=== PATIENT | female | born 1980 ===

== ENCOUNTER → 2020-04-23 11:41 | Outpatient (BNVA) | payer OTHER, SELFPAY | PROVIDERS: PCP Nurse Practitioner Family; Visit Provider Surgery | DX: R92.8 Other abnormal and inconclusive findings on diagnostic imaging of breast (principal) | CPT/HCPCS: 99203 ==

== ENCOUNTER 2020-04-26 07:43 | Outpatient (REF) | payer OTHER, SELFPAY ==
--- NOTE | 2020-04-26 | MM_ITS ---
EXAMINATION: MM DIAGNOSTIC DIGITAL MAMMOGRAPHY, LEFT CLINICAL INFORMATION: 39-year-old with palpable fullness medial left breast and numerous calcifications inner and outer quadrant left breast. Family history breast cancer in sister age 42 (sister BRCA negative). Mother passed from lung cancer age 40s. Tyrer-Cuzick score 18%. Recent baseline diagnostic mammogram did not include magnification view of the calcifications. Patient scheduled for left biopsies today - separate reports. COMPARISON: Mammography: 04/16/2020, targeted left breast ultrasound 04/16/2020. TECHNIQUE: Digital mammography is performed in the following views: Magnification CC x2, magnification ML. FINDINGS: The breasts are heterogeneously dense, which may obscure small masses (ACR BI-RADS breast composition Category c). The additional magnification views confirm groups of heterogeneous calcifications outer quadrant anterior to mid depth. Calcifications are predominantly round but vary in size and attenuation. There may be some linear distribution mid depth. There are heterogeneous coarse calcifications again noted medial left breast mid depth. Results are discussed with the patient at time of visit. IMPRESSION: In addition to the suspicious heterogeneous coarse calcifications mid medial left breast, there are also groups of heterogeneous round calcifications anterior and mid outer left breast. ASSESSMENT: BI-RADS 4: Suspicious RECOMMENDATION: 1. Ultrasound-guided core biopsy medial left breast (scheduled for today - separate report). 2. Stereotactic sampling outer left breast calcifications (scheduled for today - separate report).
--- NOTE | 2020-04-26 | US_ITS ---
EXAMINATION: ULTRASOUND GUIDED CORE BIOPSY BREAST, LEFT CLINICAL INFORMATION: 39-year-old with palpable fullness at clinical exam medial left breast and numerous calcifications. Hypoechoic area within calcifications on targeted ultrasound. Family history breast cancer in sister, age 42 (sister BRCA negative). Mother passed from lung cancer age 40s. TC score 18%. Patient also has stereotactic biopsy left breast today, outer quadrant calcifications, separate report. COMPARISON: Mammography 04/16/2020, 04/26/2020, targeted left breast ultrasound 04/16/2020. FINDINGS: Proper informed consent is obtained from the patient after discussion of the procedure, potential risks and complications, and alternatives. Patient was given an opportunity for questions. The patient appeared to understand. The patient consented to the procedure and signed the consent form. GUIDANCE: Ultrasound-guided; aseptic technique. LESION: Hypoechoic lesion with calcifications medial left breast. APPROACH: Mediolateral. ANESTHESIA: 9 mL 1% lidocaine. DERMATOTOMY: Single skin nenita dermatotomy performed. NEEDLE: 14-gauge Achieve core biopsy device with 13.5-gauge co-axial guide needle. CORES: 6. CLIP: HydroMARK; shape: butterfly. The post procedure mammogram is performed following the subsequent left breast stereotactic biopsy, separate report. The patient tolerated the procedure well. No immediate complications. Home instructions reviewed with the patient. Final pathology results are pending left breast - 2 biopsies (ultrasound-guided and stereotactic). IMPRESSION: 1. Status post ultrasound-guided core biopsy left breast. Clip placed: HydroMARK; shape: butterfly. 2. Patient also has left stereotactic biopsy today, separate report. 3. Pathology pending. An addendum report will be issued.
--- NOTE | 2020-04-26 10:00 | MM_ITS ---
EXAMINATION: STEREOTACTIC TOMOSYNTHESIS-GUIDED VACUUM-ASSISTED BREAST BIOPSY, LEFT SPECIMEN RADIOGRAPH, LEFT POST PROCEDURE DIGITAL MAMMOGRAM, LEFT CLINICAL INFORMATION: 39-year-old with palpable fullness at clinical exam medial left breast and numerous calcifications inner left breast and scattered grouped calcifications outer left breast. Hypoechoic area within medial calcifications on targeted ultrasound. Family history breast cancer in sister, age 42 (sister BRCA negative). Mother passed from lung cancer age 40s. TC score 18%. Patient also has ultrasound-guided biopsy left breast today, separate report. COMPARISON: Mammography 04/16/2020, 04/26/2020. TECHNIQUE/PROCEDURE: Informed consent was obtained from the patient after discussion of the benefits, risks, and alternatives to biopsy today. Patient appeared to understand. Gave opportunity for questions. Patient signed consent form. Stereotactic breast biopsy is performed following the ultrasound-guided left breast biopsy described in separate report. BIOPSY TABLE: [employer] Biopsy System. LESION: Grouped calcifications outer left breast. LOCAL ANESTHESIA: 4 mL 1% lidocaine; 10 mL 1% lidocaine with epinephrine. DERMATOTOMY: Single skin nenita dermatotomy performed. NEEDLE: Tag'By Eviva 9-gauge vacuum assisted core biopsy device. APPROACH: caudal cranial. TARGETING: Combination of digital breast tomosynthesis and stereotactic digital mammography used for targeting. CORES: 7. CLIP: Tag'By SecurMark T-shaped marker. SPECIMEN RADIOGRAPH: Specimen radiograph is taken in separate room using digital mammography. The index calcifications are in the excised cores. There are over 30 calcifications in the cores. POST PROCEDURE UNILATERAL DIGITAL MAMMOGRAM: The post biopsy mammogram is performed in separate room using separate digital mammography equipment from the biopsy procedure. CC and ML views are obtained. The breasts are heterogeneously dense, which may obscure small masses (breast composition category: c). There is a HydroMark butterfly shaped clip marker adjacent to the coarse heterogeneous calcifications mid 9:00 left breast. There is a SecurMark T-shaped clip marker overlying the anterior 3:30 o'clock breast. The calcifications are markedly decreased consistent with the sampling. There is small parenchymal hematoma lateral side. Home instructions reviewed with the patient. Final pathology results are pending. IMPRESSION: 1. Digital tomosynthesis-guided core biopsy left breast with T shaped clip placement. 2. Ultrasound-guided left breast biopsy with Butterfly shaped clip placement, separate report. 3. Specimen radiograph taken and post procedure mammogram. There is satisfactory positioning of the biopsy clips. 4. Final pathology results pending- 2 sites. An addendum report will be issued.
== END 2020-04-26 07:44 | disposition home or self-care (01) ==
LOC: HO.MAMMO 07:43
PROVIDERS: PCP Nurse Practitioner Family; Visit Provider Surgery
DX: C50.912 Malignant neoplasm of unspecified site of left female breast (principal); Z17.0 Estrogen receptor positive status [ER+]; Z80.3 Family history of malignant neoplasm of breast
CPT/HCPCS: 19083; 19283; 77065; 88305; 88341; 88342; 88360

== ENCOUNTER → 2020-04-30 13:59 | Outpatient (BNVA) | payer OTHER, SELFPAY | PROVIDERS: PCP Nurse Practitioner Family; Referring Provider Nurse Practitioner Family; Visit Provider Surgery | DX: C50.912 Malignant neoplasm of unspecified site of left female breast (principal); Z98.890 Other specified postprocedural states | CPT/HCPCS: 99213 ==

== ENCOUNTER → 2020-05-27 14:08 | Outpatient (BNVA) | payer OTHER, MEDICAID, SELFPAY | PROVIDERS: PCP Nurse Practitioner Family; Referring Provider Nurse Practitioner Family; Visit Provider Urology | DX: N39.0 Urinary tract infection, site not specified (principal) | CPT/HCPCS: 81002; 99202 ==

== ENCOUNTER → 2020-10-27 09:20 | Outpatient (BNVA) | payer OTHER, SELFPAY | PROVIDERS: PCP Nurse Practitioner Family; Visit Provider Advanced Practice Midwife | DX: B97.7 Papillomavirus as the cause of diseases classified elsewhere (principal) | CPT/HCPCS: 99212 ==

== ENCOUNTER 2020-11-03 11:20 | Outpatient (REF) | payer OTHER, SELFPAY ==
--- NOTE | ~2020-11-03 | US_ITS ---
EXAMINATION: US PELVIS AND TRANSVAGINAL CLINICAL INFORMATION: Malignant neoplasm of unspecified site. COMPARISON: None. TECHNIQUE: Transabdominal and transvaginal ultrasound of the pelvis were performed. FINDINGS: The uterus is anteverted and anteflexed measuring 7.0 cm in length, 3.1 cm in AP and 4.5 cm in transverse dimension. The uterus is homogeneous in echotexture. The right ovary measures 2.0 x 1.2 x 1.5 cm and volume 1.9 mL. It appears unremarkable. The left ovary measures 2.2 x 1.2 x 1.6 cm and volume 2.2 mL. It appears unremarkable. There are several nabothian cysts seen in the cervix. There is no free fluid in the pelvis. US/US pelvic and transvaginal IMPRESSION: Several nabothian cysts in the cervix. The uterus is unremarkable. The ovaries are unremarkable.
== END 2020-11-03 11:21 | disposition home or self-care (01) ==
LOC: HO.US 11:20
PROVIDERS: PCP Nurse Practitioner Family; Visit Provider Advanced Practice Midwife
DX: B97.7 Papillomavirus as the cause of diseases classified elsewhere (principal); C50.912 Malignant neoplasm of unspecified site of left female breast
CPT/HCPCS: 76830; 76856

== ENCOUNTER 2020-11-18 11:10 | Outpatient (REF) | payer OTHER, SELFPAY | END 2020-11-18 11:11 | disposition home or self-care (01) | LOC: HO.LAB 11:10 | PROVIDERS: PCP Nurse Practitioner Family; Visit Provider Obstetrics & Gynecology | DX: N87.0 Mild cervical dysplasia (principal) | CPT/HCPCS: 57454; 81025; 88305 ==

== ENCOUNTER 2020-11-25 11:34 | Outpatient (REF) | payer OTHER, SELFPAY ==
[2020-11-25 12:04] LABS: COVID-19 Test Negative (Negative); IDNOW Serial# 55D5AD1C
== END 2020-11-25 11:35 | disposition home or self-care (01) ==
LOC: HO.LAB 11:34
PROVIDERS: Visit Provider Internal Medicine
DX: Z20.822 Contact with and (suspected) exposure to COVID-19 (principal)
CPT/HCPCS: 36415; 87635; C9803

== ENCOUNTER → 2020-12-02 14:04 | Outpatient (BNVA) | payer OTHER, SELFPAY | PROVIDERS: Visit Provider Obstetrics & Gynecology ==

== ENCOUNTER → 2021-01-25 14:07 | Outpatient (BNVA) | payer OTHER, SELFPAY | PROVIDERS: PCP Nurse Practitioner Family; Visit Provider Urology | DX: N39.0 Urinary tract infection, site not specified (principal) | CPT/HCPCS: 99212 ==

== ENCOUNTER 2021-04-27 09:28 | Outpatient (REF) | payer OTHER, SELFPAY ==
[2021-04-27 10:06] LABS: COVID-19 Test Positive (Negative)
== END 2021-04-27 09:29 | disposition home or self-care (01) ==
LOC: HO.LAB 09:28
PROVIDERS: PCP Nurse Practitioner Family; Visit Provider Internal Medicine
DX: Z20.822 Contact with and (suspected) exposure to COVID-19 (principal)
CPT/HCPCS: 36415; 87635; C9803

== ENCOUNTER 2021-05-04 08:02 | Outpatient (REF) | payer OTHER, SELFPAY | END 2021-05-04 08:03 | disposition home or self-care (01) | LOC: HO.LAB 08:02 | PROVIDERS: PCP Nurse Practitioner Family; Visit Provider Internal Medicine | DX: Z20.822 Contact with and (suspected) exposure to COVID-19 (principal) | CPT/HCPCS: C9803; U0003; U0005 ==

== ENCOUNTER 2021-07-21 09:50 | Outpatient (REF) | payer OTHER, SELFPAY ==
[2021-07-21 11:05] LABS: COVID-19 Test Negative (Negative); IDNOW Serial# 16C4AD1C
== END 2021-07-21 09:51 | disposition home or self-care (01) ==
LOC: HO.LAB 09:50
PROVIDERS: Visit Provider Internal Medicine
DX: Z20.822 Contact with and (suspected) exposure to COVID-19 (principal)
CPT/HCPCS: 36415; 87635; C9803

== ENCOUNTER 2021-09-03 09:04 | Outpatient (REF) | payer OTHER, SELFPAY ==
[2021-09-03 11:18] LABS: Appearance Urine CLEAR; Color Urine YELLOW; Glucose Urine UA NEG (NEG); Leukocyte Esterase Urine TRACE (NEG); Nitrite Urine NEG (NEG); PH 7.5 (5.0-8.0); Specific Gravity - Urine 1.015 (1.005-1.025); UACC Culture Trigger YES; Urine Blood NEG (NEG); Urine Ketones NEG (NEG); Urine Protein NEG (NEG-TRACE)
[2021-09-03 11:32] LABS: RBC Urine 0-2 /HPF (0); Squamous Epithelial Cell Urine 2+ /LPF
[2021-09-03 11:43] LABS: Alanine Aminotransferase 7 U/L (0-31); Alkaline Phosphatase 34 U/L (39-117); Anion Gap 10 (12-20); Aspartate Amino Transferase 17 U/L (5-31); Bilirubin Total 0.2 mg/dL (0.0-1.0); Blood Urea Nitrogen 11 mg/dL (9-16); Calcium 9.1 mg/dL (8.4-10.2); Carbon Dioxide 30 mmol/L (22-29); Chloride 102 mmol/L (96-108); Cholesterol 149 mg/dL; Estimated Glomerular Filt Rate > 60; Glucose Fasting 69 mg/dL (60-99); HDL Cholesterol 38 mg/dL; LDL Cholesterol Calculated 93 mg/dl; Potassium 4.1 mmol/L (3.3-5.1); Sodium 138 mmol/L (135-145); Total Protein 6.3 g/dL (6.5-8.0); Triglycerides 92 mg/dL
[2021-09-03 11:47] LABS: TSH reflex Free T4 0.48 uIU/mL (0.32-4.0)
== END 2021-09-03 09:05 | disposition home or self-care (01) ==
LOC: HO.HMGCLDS 09:04
PROVIDERS: Visit Provider Nurse Practitioner Family
DX: Z00.00 Encounter for general adult medical examination without abnormal findings (principal)
CPT/HCPCS: 36415; 80053; 80061; 81001; 84443; 87086

== ENCOUNTER 2021-12-08 13:52 | Outpatient (REF) | payer OTHER, SELFPAY ==
[2021-12-09 06:48] LABS: CT PCR NOT DETECTED (Not Detect.); NG PCR NOT DETECTED (Not Detect.)
[2021-12-09 12:52] LABS: BV Int Neg Control Negative (Negative); BV Int Pos Control Positive (Positive)
[2021-12-13 01:31] LABS: HPV mRNA E6/E7 rflx Not Detected (Not Detected)
== END 2021-12-08 13:53 | disposition home or self-care (01) ==
LOC: HO.LAB 13:52
PROVIDERS: PCP Nurse Practitioner Family; Visit Provider Obstetrics & Gynecology
DX: Z01.411 Encounter for gynecological examination (general) (routine) with abnormal findings (principal); Z11.51 Encounter for screening for human papillomavirus (HPV); N94.10 Unspecified dyspareunia
CPT/HCPCS: 87480; 87491; 87510; 87591; 87624; 87660; 88142

== ENCOUNTER 2021-12-13 08:54 | Outpatient (REF) | payer OTHER, SELFPAY ==
[2021-12-13 09:35] LABS: COVID-19 Test Negative (Negative)
== END 2021-12-13 08:55 | disposition home or self-care (01) ==
LOC: HO.LAB 08:54
PROVIDERS: Visit Provider Internal Medicine
DX: Z20.822 Contact with and (suspected) exposure to COVID-19 (principal)
CPT/HCPCS: 87635; C9803

== ENCOUNTER 2021-12-15 11:43 | Outpatient (REF) | payer OTHER, SELFPAY ==
[2021-12-16 05:41] LABS: HBsAGNum1 0.23 S/CO (0.00-0.99); HIV AB/AG Nonreactive (Nonreactive); HIV Num 1 0.06 S/CO (0.00-0.99); Hepatitis B Surface Antigen Negative (Negative); ~Hepatitis C Antibody Reactive (Nonreactive)
[2021-12-16 07:49] LABS: Syphilis Screen Nonreactive (Nonreactive)
== END 2021-12-15 11:44 | disposition home or self-care (01) ==
LOC: HO.LAB 11:43
PROVIDERS: PCP Nurse Practitioner Family; Visit Provider Obstetrics & Gynecology
DX: Z11.4 Encounter for screening for human immunodeficiency virus [HIV] (principal); N76.0 Acute vaginitis; B96.89 Other specified bacterial agents as the cause of diseases classified elsewhere
CPT/HCPCS: 36415; 86780; 86803; 87340; 87389

== ENCOUNTER 2022-01-12 15:07 | Outpatient (REF) | payer OTHER, SELFPAY ==
--- NOTE | ~2022-01-12 | US_ITS ---
EXAMINATION: US PELVIS CLINICAL INFORMATION: N94.10 - Unspecified dyspareunia. Age 41. COMPARISON: Ultrasound pelvis 11/03/2020 TECHNIQUE: Ultrasound of the pelvis is performed using both transabdominal and transvaginal transducers along with Doppler. Transvaginal imaging is performed due to inadequate visualization transabdominally. FINDINGS: Uterus: The uterus is anteverted and measures 7.2 x 2.7 x 4.2 cm. Uterine volume 43 mL. The double wall endometrial thickness is 8 mm. The uterus is smooth in contour. There is no myometrial cyst. No visible fibroid. There is nabothian cysts again seen in the cervix, largest approximately 0.7 cm. Adnexa: Both ovaries are visualized. There is no adnexal mass or pelvic ascites. Normal color flow to the adnexa.. Right ovary measures 2.0 x 1.5 x 1.5 cm. Volume 2.4 mL. Left ovary measures 1.9 x 0.9 x 1.3 cm. Volume 1.2 mL. US/US pelvic and transvaginal IMPRESSION: -No fibroid. Subcentimeter nabothian cysts in the cervix similar to prior exam 2020. -No adnexal mass or pelvic ascites.
== END 2022-01-12 15:08 | disposition home or self-care (01) ==
LOC: HO.US 15:07
PROVIDERS: Visit Provider Obstetrics & Gynecology
DX: N94.10 Unspecified dyspareunia (principal)
CPT/HCPCS: 76830; 76856

== ENCOUNTER 2022-01-26 15:54 | Outpatient (REF) | payer OTHER, SELFPAY ==
[2022-01-26 16:41] LABS: MANUAL DIFF FLAG NO
[2022-01-26 17:23] LABS: Basophils Percent Auto 0.6 % (0-2); Eosinophils Absolute Auto 0.1 X10*3/uL (0.0-0.4); Eosinophils Percent Auto 1.9 % (0-4); Hematocrit 35.7 % (37.0-47.0); Imm Gran Abs Auto 0.01 X10*3/uL (0.00-0.03); Imm Gran Pct Auto 0.2 % (0.0-0.4); Lymphocytes Absolute Auto 3.2 X10*3/uL (1.2-4.9); Lymphocytes Percent Auto 49.6 % (20-40); Mean Corpuscular HGB Conc 33.6 g/dl (31.0-35.0); Mean Corpuscular Hemoglobin 31.3 pg (27.0-33.0); Mean Platelet Volume 8.4 fL (9.4-12.3); Monocytes Absolute Auto 0.5 X10*3/uL (0.1-1.2); Monocytes Percent Auto 7.7 % (2-11); Neutrophils Absolute Auto 2.6 x10*3/uL (2.0-8.3); Platelet Count 229 X10*3/uL (160-400); Red Blood Count 3.84 X10*6/uL (4.20-5.50); Red Cell Distribution Width 12.7 % (11.0-16.0); White Blood Count 6.4 X10*3/uL (4.8-10.8)
[2022-01-26 17:54] LABS: Alanine Aminotransferase 12 U/L (0-31); Albumin Level 4.4 g/dL (3.5-5.0); Alkaline Phosphatase 33 U/L (39-117); Anion Gap 10 (12-20); Aspartate Amino Transferase 18 U/L (5-31); Bilirubin Total 0.4 mg/dL (0.0-1.0); Blood Urea Nitrogen 15 mg/dL (9-16); Calcium 9.5 mg/dL (8.4-10.2); Carbon Dioxide 33 mmol/L (22-29); Chloride 100 mmol/L (96-108); Cholesterol 178 mg/dL; Estimated Glomerular Filt Rate > 60; Glucose Fasting 76 mg/dL (60-99); HDL Cholesterol 45 mg/dL; LDL Cholesterol Calculated 117 mg/dl; Sodium 139 mmol/L (135-145); Total Protein 6.9 g/dL (6.5-8.0); Triglycerides 83 mg/dL
[2022-01-31 13:46] LABS: HCV Log PCR <1.18 NOT DETECTED Log IU/mL (NOT DETECTED); HepC Viral Load <15 NOT DETECTED IU/mL (NOT DETECTED)
== END 2022-01-26 15:55 | disposition home or self-care (01) ==
LOC: HO.LAB 15:54
PROVIDERS: Absent Provider Nurse Practitioner Family; PCP Nurse Practitioner Family; Visit Provider Obstetrics & Gynecology
DX: N94.10 Unspecified dyspareunia (principal); N87.0 Mild cervical dysplasia; R76.8 Other specified abnormal immunological findings in serum; F32.4 Major depressive disorder, single episode, in partial remission; F41.9 Anxiety disorder, unspecified
CPT/HCPCS: 36415; 80053; 80061; 84443; 85025; 87522; 99212

== ENCOUNTER → 2023-01-17 11:42 | Outpatient (BNVA) | payer OTHER, SELFPAY | PROVIDERS: PCP Nurse Practitioner Family; Visit Provider Obstetrics & Gynecology ==

== ENCOUNTER 2023-02-21 10:57 | Outpatient (REF) | payer OTHER, SELFPAY ==
--- NOTE | ~2023-02-21 | MM_ITS ---
EXAMINATION: MM SCREENING DIGITAL BREAST TOMOSYNTHESIS, RIGHT CLINICAL INFORMATION: Screening. Asymptomatic. The patient is status post mastectomy of the left breast. 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 COMPARISON: Mammography: This study is compared with prior exams dating back to 2019. TECHNIQUE: Digital breast tomosynthesis is performed in both the craniocaudal and mediolateral oblique views along with computer-aided detection (CAD). Synthesized 2D images are generated from the tomosynthesis. FINDINGS: There are scattered areas of fibroglandular density (ACR BI-RADS breast composition Category b). There are no significant masses, abnormal calcifications, or other abnormalities. MM/MM tomosynthesis screening RT IMPRESSION: No mammographic evidence of malignancy. ASSESSMENT: BI-RADS BI-RADS 1 - Negative RECOMMENDATION: Routine annual mammography screening. 1 year F/U This examination should not preclude the clinical evaluation of a suspicious palpable abnormality. This patient's information was entered into a reminder system with a target due date for their next mammogram.
== END 2023-02-21 10:58 | disposition home or self-care (01) ==
LOC: HO.MAMMO 10:57
PROVIDERS: PCP Nurse Practitioner Family; Visit Provider Obstetrics & Gynecology
DX: Z12.31 Encounter for screening mammogram for malignant neoplasm of breast (principal)
CPT/HCPCS: 77063; 77067

== ENCOUNTER → 2023-02-21 11:15 | Outpatient (BNV) | payer OTHER, SELFPAY | PROVIDERS: PCP Nurse Practitioner Family; Visit Provider Radiology Diagnostic Radiology | DX: Z12.31 Encounter for screening mammogram for malignant neoplasm of breast (principal) | CPT/HCPCS: 77063; 77067 ==

== ENCOUNTER → 2023-03-15 10:19 | Outpatient (REF) | payer OTHER, SELFPAY ==
--- NOTE | 2023-03-15 10:22 | CA_ITS ---
Transthoracic Echocardiogram Patient (Last, First, Middle): Yana Rodriguez, Gender: Female Date of : 1980 Age: 42 Procedure Date: 03/15/2023 Procedure Type: Transthoracic Echocardiogram Location: OP Height: 165.1 cm Weight: 66.23 kg BSA: 1.73 m2 Heart Rate: bpm BP: 117 / 80 mmHg Complaint Operator: ALANA Referring MD: Karolyn BARBOUR Symptoms: Z01.818 EXAM PRIOR TO CHEMOTHERAPY Study Quality: Adequate ECG Rhythm: Sinus Conclusions: - The left ventricular systolic function is normal. The calculated ejection fraction is 59% by biplane method. - There is mild tricuspid valve regurgitation. Findings Left Ventricle Normal left ventricular cavity size. There is normal left ventricular wall thickness. The left ventricular systolic function is normal. The calculated ejection fraction is 59% by biplane method. There is no evidence of regional wall motion abnormalities. Diastolic function is normal for age. LV peak GLS -17.5%, suspect slight underestimation. Right Ventricle Normal right ventricular cavity size and systolic function. Atria Both atria are normal in size. Aortic Valve There is a normal trileaflet aortic valve. There is no aortic valve stenosis. There is no aortic valve regurgitation. Mitral Valve The mitral valve appears normal. There is trace mitral valve regurgitation. There is no mitral valve stenosis. Pulmonic Valve The pulmonic valve is likely normal. Tricuspid Valve Normal tricuspid valve structure. There is mild tricuspid valve regurgitation. There is no evidence of pulmonary hypertension. Great Vessels The asc aorta is normal in size. Venous The inferior vena cava is normal in size and collapses greater than 50% with inspiration. Pericardium/Pleural There is no evidence of pericardial effusion. Prior Study Comparison No prior study available for comparison. Measurements 2D Linear Measurements IVSd: 0.75 0.6-0.9/0.6-1.0 cm LVIDd: 4.87 3.9-5.3/4.2-5.9 cm LVIDd Index: 2.82 2.4-3.2/2.2-3.1 cm/m2 LVIDs: 3.15 2.0-3.6 cm LVPWd: 0.79 0.7-1.1 cm LA Diam: 3.30 2.7-3.8/3.0-4.0 cm LAIDs Index: 1.91 1.5-2.3 cm/m2 LV Mass: 153.53 67-162/88-224 g LV Mass Index: 88.75 43-95/49-115 g/m2 LVOT Diam: 1.90 3.0+(-)1.3 cm 2D Systolic Function EF 4C: 56.50 >55% EF 2C: 59.70 >55% EF BiP: 58.80 >55% Mitral Valve MV Pk E: 0.79 MV PK A: 0.55 MV Decel Time: 218.00 E/A: 1.40 E'Lateral: 14.00 E'Medial: 9.14 E/E' Med: 8.70 E/E' Lat: 5.70 PHT: 64.00 MVA PHT: 3.44 Decel [place]: 3.63 Aortic Valve AoV Pk Lang: 0.97 AoV Mn Lang: 0.72 AoV VTI: 0.23 AoV Pk Grad: 4.00 Aov Mn Grad: 2.00 GISELA Cont.VTI: 2.35 LVOT LVOT Pk Lang: 0.92 LVOT Mn Lang: 0.56 LVOT VTI: 0.19 LVOT Pk Grad: 3.00 LVOT Mn Grad: 1.00 LVOT Diam: 1.90 LVOT Area: 2.84 Diastolic Function MV Pk E: 0.79 MV Pk A: 0.55 E/A: 1.40 E'Medial: 9.14 E/E' Med: 8.70 E' Laterial: 14.00 E/E' Lat: 5.70 Right Ventricle TAPSE (mm): 18.80 TVS' Lang: 12.10 Tricuspid Valve TR Pk Lang: 2.21 TR Pk Grad: 20.00 RA Press: 3.00 RVSP: 23.00 Great Vessels Aorta Sinus of Valsalva: 3.07 2.0-3.[address] [place]: 2.41 1.7-3.4 cm Ao Asc: 2.70 2.1-3.4 cm Updated in Other Vendor System with Status of Final Rolan White MD electronically signed on 03/17/2023 9:56:51 AM with status of Final
== END ==
LOC: HO.CARD 10:19
PROVIDERS: PCP Nurse Practitioner Family; Visit Provider Nurse Practitioner Family
DX: Z01.818 Encounter for other preprocedural examination (principal)
CPT/HCPCS: 93306; 93356

== ENCOUNTER → 2023-03-15 10:22 | Outpatient (BNV) | payer OTHER, SELFPAY | PROVIDERS: PCP Nurse Practitioner Family; Visit Provider Internal Medicine | DX: I36.1 Nonrheumatic tricuspid (valve) insufficiency (principal) | CPT/HCPCS: 93306 ==

== ENCOUNTER 2023-08-20 13:27 | Outpatient (AMB) | payer OTHER, SELFPAY ==
[2023-08-20 13:36] VITALS: BP 120/78; PULSE 86; O2SAT 96; BMI 24.9
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
== END 2023-08-20 14:17 | disposition home or self-care (01) ==
PROVIDERS: PCP Nurse Practitioner Family; Visit Provider Nurse Practitioner Family
DX: Z00.00 Encounter for general adult medical examination without abnormal findings (principal); H61.23 Impacted cerumen, bilateral
CPT/HCPCS: 99396

== ENCOUNTER 2024-03-03 15:03 | Outpatient (AMB) | payer OTHER, SELFPAY ==
[2024-03-03 15:06] VITALS: BP 120/78; PULSE 81; O2SAT 98; BMI 22.5
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
== END 2024-03-03 15:56 | disposition home or self-care (01) ==
PROVIDERS: PCP Nurse Practitioner Family; Visit Provider Nurse Practitioner Family
DX: T74.21XA Adult sexual abuse, confirmed, initial encounter (principal)
CPT/HCPCS: 99213

== ENCOUNTER 2024-03-04 10:07 | Outpatient (REF) | payer OTHER, SELFPAY ==
[2024-03-04 13:21] LABS: MANUAL DIFF FLAG NO
[2024-03-04 13:27] LABS: Basophils Percent Auto 0.5 % (0-2); Eosinophils Absolute Auto 0.1 X10*3/uL (0.0-0.4); Eosinophils Percent Auto 1.8 % (0-4); Hematocrit 38.5 % (37.0-47.0); Hemoglobin 12.6 g/dl (12.0-16.0); Imm Gran Abs Auto 0.03 X10*3/uL (0.00-0.03); Imm Gran Pct Auto 0.4 % (0.0-0.4); Lymphocytes Absolute Auto 0.9 X10*3/uL (1.2-4.9); Lymphocytes Percent Auto 11.6 % (20-40); Mean Corpuscular HGB Conc 32.7 g/dl (31.0-35.0); Mean Corpuscular Hemoglobin 30.7 pg (27.0-33.0); Mean Corpuscular Volume 93.9 fL (80.0-98.0); Mean Platelet Volume 8.9 fL (9.4-12.3); Monocytes Absolute Auto 0.4 X10*3/uL (0.1-1.2); Monocytes Percent Auto 5.3 % (2-11); Neutrophils Absolute Auto 6.1 x10*3/uL (2.0-8.3); Neutrophils Percent Auto 80.4 % (45-73); Platelet Count 289 X10*3/uL (160-400); Red Cell Distribution Width 13.1 % (11.0-16.0); White Blood Count 7.6 X10*3/uL (4.8-10.8)
[2024-03-04 13:39] LABS: Appearance Urine Clear; Color Urine Yellow; Glucose Urine UA Negative (Negative); Leukocyte Esterase Urine Negative (Negative); Nitrite Urine Negative (Negative); Specific Gravity - Urine 1.015 (1.005-1.025); UMIC TRIGGER UACC YES; Urine Blood Negative (Negative); Urine Ketones Negative (Negative); Urine Protein 30 (1+) mg/dL (Neg-Trace)
[2024-03-04 13:52] LABS: Bacteria Urine None Seen (None Seen); Hyaline Casts Urine 0-2 /LPF (0-2); RBC Urine 0-2 /HPF (0-2); Squamous Epithelial Cell Urine 0-2 /HPF (0-2); WBC Urine 0-5 /HPF (0-5)
[2024-03-04 14:00] LABS: Alanine Aminotransferase 15 U/L (0-31); Albumin Level 4.1 g/dL (3.5-5.0); Alkaline Phosphatase 54 U/L (39-117); Anion Gap 11 (12-20); Aspartate Amino Transferase 21 U/L (5-31); Bilirubin Total 0.2 mg/dL (0.0-1.0); Blood Urea Nitrogen 8 mg/dL (9-16); Calcium 9.8 mg/dL (8.4-10.2); Carbon Dioxide 29 mmol/L (22-29); Chloride 104 mmol/L (96-108); Cholesterol 160 mg/dL (<200); Estimated Glomerular Filt Rate > 60; Glucose Fasting 105 mg/dL (60-99); Glucose Random 106 mg/dL (60-115); HCG Quantitative < 2 mIU/mL; HDL Cholesterol 39 mg/dL (>40); LDL Cholesterol Calculated 104 mg/dL (<100); Potassium 4.3 mmol/L (3.3-5.1); Sodium 140 mmol/L (135-145); TSH reflex Free T4 1.21 uIU/mL (0.32-4.0); Triglycerides 87 mg/dL (<150)
[2024-03-04 15:24] LABS: CT PCR NOT DETECTED (Not Detect.); NG PCR NOT DETECTED (Not Detect.)
[2024-03-05 08:17] LABS: Syphilis Screen Nonreactive (Nonreactive)
[2024-03-05 08:26] LABS: HBS Num1 110.79 mIU/mL (0-7.99); HBsAGNum1 0.31 S/CO (0.00-0.99); HIV AB/AG Nonreactive (Nonreactive); HIV Num 1 0.05 S/CO (0.00-0.99); Hepatitis B Surface Antigen Negative (Negative); ~HepC Num1 3.99 S/CO (0.00-0.79); ~Hepatitis A Antibody IgM Nonreactive (Nonreactive); ~Hepatitis B Surface Antibody REACTIVE (Nonreactive); ~Hepatitis C Antibody Reactive (Nonreactive)
[2024-03-05 09:16] LABS: HBc Num2 0.49 S/CO; HBc Num3 0.78 S/CO; Hepatitis B Core Antibody Nonreactive (Nonreactive)
== END 2024-03-04 10:08 | disposition home or self-care (01) ==
LOC: HO.HMGCLDS 10:07
PROVIDERS: PCP Nurse Practitioner Family; Visit Provider Nurse Practitioner Family
DX: T74.21XA Adult sexual abuse, confirmed, initial encounter (principal)
CPT/HCPCS: 80053; 80061; 81001; 84443; 84702; 85025; 86704; 86706; 86709; 86780; 86803; 87340; 87389; 87491; 87591

== ENCOUNTER 2024-04-29 12:49 | Outpatient (REF) | payer OTHER, SELFPAY ==
[2024-04-29 16:25] LABS: Appearance Urine Clear; Color Urine Yellow; Glucose Urine UA Negative (Negative); Leukocyte Esterase Urine Moderate (2+) (Negative); Nitrite Urine Negative (Negative); PH 7.5 (5.0-9.0); Specific Gravity - Urine 1.015 (1.005-1.025); UMIC TRIGGER UA YES; Urine Blood Trace (Negative); Urine Ketones Negative (Negative); Urine Protein 30 (1+) mg/dL (Neg-Trace)
[2024-04-29 16:32] LABS: Bacteria Urine None Seen (None Seen); Hyaline Casts Urine 0-2 /LPF (0-2); Squamous Epithelial Cell Urine 0-2 /HPF (0-2); WBC Urine >50 /HPF (0-5)
[2024-04-30 20:18] LABS: HCV Log PCR <1.18 NOT DETECTED Log IU/mL (NOT DETECTED); HepC Viral Load <15 NOT DETECTED IU/mL (NOT DETECTED)
== END 2024-04-29 12:50 | disposition home or self-care (01) ==
LOC: HO.HMGCLDS 12:49
PROVIDERS: PCP Nurse Practitioner Family; Visit Provider Nurse Practitioner Family
DX: R76.8 Other specified abnormal immunological findings in serum (principal); R30.0 Dysuria
CPT/HCPCS: 36415; 81001; 87086; 87088; 87186; 87522

== ENCOUNTER 2024-05-15 09:09 | Outpatient (AMB) | payer OTHER, SELFPAY ==
--- NOTE | 2024-05-15 09:18 | A.OFFVIS_ITS ---
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 No complaints. Last Pap/HPV was negative in 12/11 Last Mammogram was BI-RADS 1 in 03/14 [facility] Medical History Rheumatoid arthritis Invasive ductal carcinoma of left breast Migraines Hepatitis C antibody test positive Bronchitis GERD (gastroesophageal reflux disease) ADHD (attention deficit hyperactivity disorder) Surgical History H/O total mastectomy of left breast History of section History of tonsillectomy Family History Father No problems noted. Mother History of lung cancer History of Crohn's disease Maternal Grandmother History of hypertension Maternal Grandfather History of stroke History of hypertension Social History Housing: House Patient Tobacco Use Status: Former Tobacco user Years Smoked: quit 3-4 years ago e-Cigarette/Vaping Use: Former Use Second Hand Smoke Exposure: Yes service: No Current occupational status: employed Current occupation: [email or web address] Current occupational exposures/hazards: No Cognitive needs: No Hearing needs: No Vision needs: No Female Reproductive History Menstrual Age of Menarche: 12 Date of last pap smear: 12/09/21 Date of Mammogram: 02/21/23 Review of Systems Const All systems reviewed & are unremarkable except as noted in HPI and below Card Reports as per HPI Resp Reports as per HPI GI Reports as per HPI and Reports no additional complaints Reports as per HPI Physical Exam Vital Signs: Last Vital Signs BP 112/64 05/15/24 09:21 BMI result Body Mass Index 22.4 Const General: cooperative, healthy appearing and comfortable Chest Chest palpation & inspection: normal palpation of entire chest wall and other (Status post left mastectomy) Breast/axilla inspection: normal inspection of the breasts (Right breast within normal, left status mastectomy) and normal inspection of the axillae Breast/axilla palpation: normal palpation of the breasts (Right breast within normal, left status post mastectomy), normal palpation of the axillae and no axillary lymphadenopathy Resp Effort & Inspection: normal respiratory effort Auscultation: clear to auscultation bilaterally Percussion: percussion normal Cardio Palpation: normal PMI Rate: regular rate Rhythm: regular rhythm Heart sounds: no murmurs and no rubs Peripheral pulses: Peripheral pulses 2+ throughout GI Inspection: Yes normal to inspection Palpation (GI): Soft to palpation, nontender, no guarding, not rigid and No hepatosplenomegaly present Percussion: Yes normal to percussion Auscultation: normal bowel sounds Rectal Exam - Female: deferred General: Yes bladder normal to palpation External Female Exam: No lesion Speculum Exam - Vagina: normal appearance of the vagina, normal palpation, normal vaginal discharge and not erythematous Speculum Exam - Cervix: normal appearance of the cervix and normal palpation Bimanual exam- vagina & uterus: normal bimanual exam, normal palpation, uterine size normal, bladder normal to palpation, consistency normal and normal palpation Bimanual Exam- Adnexa, other: normal adnexae, no masses and no tenderness Assessment & Plan Assessment & Plan (1) Well woman exam: Comment: History of ADENIKE 1 in 2020 left breast cancer status post left mastectomy Code(s): Z01.419 - Encounter for gynecological examination (general) (routine) without abnormal findings Category: Medical Plan: Cotesting done. Mammogram ordered. Counseled the patient about the recommended dietary allowance of 1000 mg of Calcium & 600 IU of vitamin D. The patient was instructed to perform monthly self-breast exams and to schedule an annual exam in a year; All questions answered and the patient verbalized understanding. Instructed the patient to schedule annual exam in a year Orders: Orders MM tomosynthesis screening RT Today Z12.31 - Encounter for screening mammogram for malignant neoplasm of breast Coding Level of Care Code Est Pt Prev Care 40-64y(19996) Diagnoses Well woman exam Z01.419
[2024-05-15 09:21] VITALS: BP 112/64; BMI 22.4
== END 2024-05-15 09:33 | disposition home or self-care (01) ==
LOC: HO.HWS 09:09
PROVIDERS: PCP Nurse Practitioner Family; Visit Provider Obstetrics & Gynecology
DX: Z01.419 Encounter for gynecological examination (general) (routine) without abnormal findings (principal)
CPT/HCPCS: 99396

== ENCOUNTER 2024-05-15 09:09 | Outpatient (REF) | payer OTHER, SELFPAY ==
[2024-05-21 12:48] LABS: HPV mRNA E6/E7 Not Detected (Not Detected)
== END 2024-05-15 09:10 | disposition home or self-care (01) ==
LOC: HO.LNP 09:09
PROVIDERS: PCP Nurse Practitioner Family; Visit Provider Obstetrics & Gynecology
DX: Z01.419 Encounter for gynecological examination (general) (routine) without abnormal findings (principal)
CPT/HCPCS: 87624; 88175; 99396

== ENCOUNTER 2024-08-08 13:40 | Outpatient (REF) | payer OTHER, SELFPAY | END 2024-08-08 13:41 | disposition home or self-care (01) | LOC: HO.MAMMO 13:40 | PROVIDERS: PCP Nurse Practitioner Family; Visit Provider Obstetrics & Gynecology | DX: Z12.31 Encounter for screening mammogram for malignant neoplasm of breast (principal) | CPT/HCPCS: 77063; 77067 ==

== ENCOUNTER 2024-08-21 08:50 | Outpatient (AMB) | payer OTHER, SELFPAY ==
[2024-08-21 08:59] VITALS: BP 118/76; PULSE 73; TEMP 36.8; O2SAT 96; BMI 21.6
--- NOTE | 2024-08-21 08:59 | MHC.PC.OV ---
Vital Signs 08/21/24 08:59 Height 5 ft 5 in Weight 130 lb BMI 21.6 BP 118/76 Blood Pressure Location Rt brachial Position Sitting Pulse 73 Pulse Source Pulse Oximeter Temp 98.3 F Temp Source Oral Pulse Oximetry (%) 96 Intake Visit Reasons: PE - see comments Intake Note: pt is here for PE Training Administrator Required: No Accompanied by: Self / Same As Patient Allergies No Known Allergies [No Known Allergies*] Allergy (Verified 08/21/24 08:59) Tobacco use date assessed: 08/21/24 Dental Screening Dental Screen Date: 08/21/24 Did you have a dental visit in the last 12 months?: Yes Did you have a dental problem in the last 6 months where you did not have access to dental care?: No Was dental information given to patient?: Patient has dentist HPI PE - see comments HPI Details History of Present Illness The patient is a 43-year-old female presenting for a physical examination and follow-up for her invasive ductal carcinoma of the left breast, 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 She reports doing very well overall. The patient is currently under the care of an oncology team. She had an echocardiogram performed last week. The patient reports she engages with a psychiatrist and a psychologist. Pt also sees a leather coverer for her RA. Health Maintenance - Follow-up with oncology team. - Regular psychiatric care. -follow up with rheum Social History Review of Systems - General: Denies fevers, chills. - Gastrointestinal: Denies blood in stool, constipation, diarrhea. - Cardiovascular: Denies chest pain. - Respiratory: Denies shortness of breath. - Psychiatric: Denies suicidal ideation, homicidal ideation. Physical Exam General: Cooperative, healthy appearing, comfortable, no acute distress and well developed Orientation: Patient oriented x3 Limitations: No limitations Head: Normal to inspection Ears: cerumen noted bilat, R>L. after ear lavage TMs easily seen Nose: Normal external nose present Face and sinus: Normal facial exam Eyes: Appearance normal, both eyes and all related structures Neck: Normal visual inspection and Yes full ROM Respiratory: Normal respiratory effort and able to speak in complete sentences. Clear to auscultation bilaterally Cardiovascular: Regular rate and rhythm. Normal S1 and S2 GI: Normal to inspection. Soft to palpation and nontender Skin: No rashes or lesions noted Neuro: Patient oriented x3 Extremities: Normal to inspection Results Plan - Continue follow-up care with the oncology team. - Maintain psychiatric support with her psychiatrist and psychologist. - Continue monitoring and routine screening as recommended by her oncology team. Patient was informed and verbally consented to the use of an ambient scribe for clinic note documentation during this visit. Discussion Notes In today's visit, I discussed with the patient her ongoing management plan for her diagnosed invasive ductal carcinoma of the left breast with metastasis. The importance of continued follow-up with her oncology team was emphasized. Additionally, her psychiatric care was acknowledged as an ongoing part of her treatment plan. She mentioned having undergone an echocardiogram last week, which is assumed to be part of her routine monitoring through the oncology hematology team. We did not discuss specific procedural details or any changes to her current treatment regimen during this visit. Pt also sees rheumatology for RA Patient Instructions - Continue attending appointments with your oncology team. - Maintain appointments with your psychiatrist and psychologist. - Monitor for any new symptoms and report them promptly. [facility] Medical History (Updated 08/21/24 @ 10:05 by CAYLA Aguila) Rheumatoid arthritis Invasive ductal carcinoma of left breast Migraines Hepatitis C antibody test positive Bronchitis GERD (gastroesophageal reflux disease) ADHD (attention deficit hyperactivity disorder) Surgical History Hx of biopsy H/O total mastectomy of left breast History of section History of tonsillectomy Family History Father No problems noted. Mother History of lung cancer History of Crohn's disease Maternal Grandmother History of hypertension Maternal Grandfather History of stroke History of hypertension Social History Housing: House Patient Tobacco Use Status: Former Tobacco user Years Smoked: quit 3-4 years ago e-Cigarette/Vaping Use: Former Use Second Hand Smoke Exposure: Yes service: No Current occupational status: employed Current occupation: [employer] Current occupational exposures/hazards: No Cognitive needs: No Hearing needs: No Vision needs: No Female Reproductive History Menstrual Age of Menarche: 12 Questionnaire PHQ-9 Over the last 2 weeks, how often have you been bothered by any of the following problems? 1. Little interest or pleasure in doing things: nearly every day 2. Feeling down, depressed, or hopeless: nearly every day 3. Trouble falling or staying asleep, or sleeping too much: nearly every day 4. Feeling tired or having little energy: nearly every day 5. Poor appetite or overeating: nearly every day 6. Feeling bad about yourself - or that you are a failure or have let yourself or your family down: nearly every day 7. Trouble concentrating on things, such as reading the newspaper or watching television: nearly every day 8. Moving or speaking so slowly that other people could have noticed. Or the opposite - being so fidgety or restless that you have been moving around a lot more than usual: not at all 9. Thoughts that you would be better off or of hurting yourself in some way: not at all Total score: 21 Depression Screening Interpretation: Positive (psychiatry and therpist. Denies any si or hi) Depression Screening Follow-up: Existing condition and In treatment Depression Screening Done: Yes 20400 - PHQ-9 Billing: Yes Source: Developed by Drs. Preston Valle, Ruth Ann Romero, Rod Arriaga and colleagues, with an educational ky from [employer]. Thrive Questionnaire Date Thrive assessed: 08/21/24 I am a: Patient What is your living situation today?: I have a steady place to live Within the past 12 months, did the food you bought not last and you didn't have the money to get more?: I choose not to answer this question Within the past 12 months, did you worry whether your food would run out before you got money to buy more?: I choose not to answer this question Do you have trouble paying for medicines?: I choose not to answer this question Do you have trouble getting transportation to medical appointments?: I choose not to answer this question Do you have trouble paying your heating and electricity bill?: I choose not to answer this question Do you have trouble taking care of your child, family member or friend?: No Do you have trouble with day-to-day activities such as bathing, preparing meals, shopping, managing finances, etc.?: Yes Are you currently unemployed and looking for a job?: No Are you interested in more education?: No Please select the resources that you would like help with: None Currently or been in a relationship where the following occur: I choose not to answer THRIVE Score: 0 AUDIT C Alcohol Use Questionnaire (AUDIT-C) 1. How often do you have a drink containing alcohol?: Monthly or less 2. How many drinks containing alcohol do you have on a typical day when you are drinking?: 1 or 2 3. How often do you have six or more drinks on one occasion?: Less than monthly Total Score: 2 Score Reviewed/Action Taken: Yes MIGUEL-7 AMB Questionnaire MIGUEL-7 Date MIGUEL - 7 assessed: 08/21/24 Feeling nervous, anxious, or on edge: 3 = Nearly every day Not being able to stop or control worryin = Nearly every day Worrying too much about different things: 3 = Nearly every day Trouble relaxin = Nearly every day Being so restless that it is hard to sit still: 1 = Several days Becoming easily annoyed or irritable: 3 = Nearly every day Feeling afraid as if something awful might happen: 3 = Nearly every day Total MIGUEL-7 score (0-4 normal; 5-9 mild; 10-14 moderate; 15-21 severe): 19 Source: Developed by Drs. Preston Valle, Ruth Ann Romero, Rod Arriaga and colleagues, with an educational ky from [employer]. MIGUEL-7 Assessment Billing MIGUEL-7 Assessment Tool: MIGUEL-7 Assessment 91158 Physical exam (Primary Care) Vital Signs: Last Vital Signs Temp 98.3 F 08/21/24 08:59 Pulse 73 08/21/24 08:59 BP 118/76 08/21/24 08:59 Pulse Ox 96 08/21/24 08:59 BMI result Body Mass Index 21.6 Tobacco/Smoking Status: Tobacco use Status Tobacco use date assessed 08/21/24 08/21/24 09:00 Patient Tobacco Use Status Former Tobacco user 08/21/24 09:00 e-Cigarette/Vaping Use Former Use 08/21/24 09:00 PHQ-9: PHQ-9 Score PHQ-9: Total score 21 08/21/24 09:00 Depression Screening Interpretation: Positive (psychiatry and therpist. Denies any si or hi) Depression Screening Follow-up: Existing condition and In treatment Thrive Assessment: Date of Thrive Assessment Date Thrive assessed 08/21/24 08/21/24 09:00 Currently or been in a relationship where the following occur: I choose not to answer Office Procedures Cerumen Removal From which ear canal was the cerumen removed: bilateral Removal: irrigation Notes: patient tolerated procedure well, no complications and ear canal clear 60469-[id number] Irrigation/Lavage Coding Level of Care Code Est Pt Prev Care 40-64y(72831) Diagnoses Physical exam Z00.00 Invasive ductal carcinoma of left breast C50.912 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 C77.0 Screening for HIV (human immunodeficiency virus) Z11.4 Rheumatoid arthritis M06.9 CPT Codes Office Procedure - CPT: 98002-Yqf Irrigation/Lavage ([id number]) Additional Codes MIGUEL-7 Assessment Billing - MIGUEL-7 Assessment Tool: MIGUEL-7 Assessment 84792 ([id number]) PHQ-9 - 07743 - PHQ-9 Billing: Yes ([id number]) Assessment & Plan Assessment & Plan (1) Physical exam: Code(s): Z00.00 - Encounter for general adult medical examination without abnormal findings Category: Medical (2) Invasive ductal carcinoma of left breast: Code(s): C50.912 - Malignant neoplasm of unspecified site of left female breast Category: Medical (3) 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 Orders: Orders HIV Ab/Ag Today Z11.4 - Encounter for screening for human immunodeficiency virus [HIV] Comprehensive [place]. Panel Fast Today Z00.00 - Encounter for general adult medical examination without abnormal findings TSH reflex Free T4 Today Z00.00 - Encounter for general adult medical examination without abnormal findings Complete Blood Count Auto Diff Today Z00.00 - Encounter for general adult medical examination without abnormal findings UA CC w/rflx Micro + Cult Today Z00.00 - Encounter for general adult medical examination without abnormal findings Lipid Panel Today Z00.00 - Encounter for general adult medical examination without abnormal findings
--- OUTSIDE RECORDS SUMMARY | 2024-08-21 11:41 | XMS_ITS | Data Portability ---
Author Organization [facility] [employer], , [facility], formerly [facility] Address [address] [place] [address] Assessment Encounter Date Assessment Date Assessment LastModified by Organization Details LastModified Time 03/25/2021 03/25/2021 Telemedicine Information: This telmed (audio + visual) appointment provided a MAT prescription. Time Start: 1006; Time End:4553 Provider Location: office; Patient Location: office Telemedicine Consent Given (verbal): Y Lab Results > Last UDS Result (Qual Screen): POS Buprenorphine and NO illicit drugs > Last Confirmatory Test Result (LCMS/Quant): N/A due to Negative UDS > Last Buprenorphine Confirmation Test Result: Bup: 735 ng/ml & Norbup: 245 ng/ml > Last LFT Result on 02/24/2021: WNL Since Last Visit THIS PT IS BEING TREATED FOR OUD WITH BUPRENORPHINE AND IS SEEN MONTHLY. CURRENT PRESCRIPTION IS SBX 16/4 MG/DAY. DOSE AMOUNT TAKEN TODAY: Full dose > Bio/psycho/social Update: YANA PRESENTS TODAY FOR MONTHLY MAT ASSMT REPLIES NO ILLICIT USE OR CRAVINGS PREV UDS NEGATIVE PMH: LEFT BREAST CA. THEN RECONSTRUCTION WHICH RESULTED IN INFECTION CONTS CHEMO OVER 7 MONTHS---1X Q 3 WEEKS NEW JOB; AT [employer]---STRESSFUL R/T JOB REQUIRMTS RUSHED TO MAKE MAT ASSMT R/T JOB SCHEDULING STARTED TO [facility]Y---UNABLE TO VOID. ALLOWED TO RETURN, SBX RX SENT R/T HX OF STABILITIY EMOTIONAL SPPT PROVIDED COUNSELING W/ S. WOLFF/PSYCH--ANX, INSOMNIA--RX CLONAZ, AMBIEN, GABAPENTIN PLAN: CONT MOTHNLY FOR CONT SUPPORT, F/U UDS Assessment The patient's current phase of treatment is Stable maintenance, OUD. > 1) Interpretation of Confirmatory (LCMS) Test Result: N/A due to NEG UDS > 2) Interpretation of Last Buprenorphine Confirmation Test Result: No concern > 3) Medication Dose: No report of cravings/withdrawa l symptoms. Pt will remain at current dose > 4) Markers of Recovery include: UDS NEGATIVE, COMPLIANCE WITH SCHED APPMTS AND COUNSELING. > 5) Counseling: Urged to enage in counseling The patient does meet diagnostic criteria for opioid dependence. The patient is responding to treatment with buprenorphine at OBOT level of care at this phase of treatment. The patient does continue to be a good candidate for this level of care. LFT will be repeated per our clinical protocol. Urine drug testing is ordered today with medical necessity as below. LAB ORDERS - Confirmatory testing for illicit substances or absence of prescribed buprenorphine. UNEXPECTED results on UDS may impact this patient's treatment plan. The following tests require confirmation via LCMS: Y POS for AMPHETAMINE Y POS for BENZODIAZEPINES Y POS for COCAINE Y POS for METHADONE Y POS for OPIATES (INCLUDING FENTANYL) Y POS for OXYCODONE ADDITIONAL LAB(S) REQUESTED - if indicated, please order the following: NONE Plan Patient's visit frequency should be monthly. Frequency of UDS and confirmatory test, if applicable, should be monthly. Treatment plan review or change includes continue current level of care. Referrals made today include none. Prescription monitoring program is reviewed. If reviewed, I have identified agents prescribed to the patient in addition to any issued by our program; the patient is counseled regarding any risk of combining sedating agents. [email or web address] Not available 03/27/2021 11:33:49 04/26/2021 04/26/2021 Telemedicine Information: This telmed (audio + visual) appointment provided a MAT prescription. Time Start: 1643; Time End:1657 Provider Location: office; Patient Location: office Telemedicine Consent Given (verbal): Y Lab Results > Last UDS Result (Qual Screen): POS Buprenorphine and NO illicit drugs > Last Confirmatory Test Result (LCMS/Quant): N/A due to Negative UDS > Last Buprenorphine Confirmation Test Result: Bup: 2000 ng/ml & Norbup: 1805 ng/ml > Last LFT Result on 02/24/2021: WNL Since Last Visit THIS PT IS BEING TREATED FOR OUD WITH BUPRENORPHINE AND IS SEEN MONTHLY. CURRENT PRESCRIPTION IS SBX 16/4 MG/DAY. DOSE AMOUNT TAKEN TODAY: Full dose > Bio/psycho/social Update: MONTHLY MAT VISIT YANA JARVIS TO PROVIDE ON-GOING NEGATIVE UDS'S ILLICIT USE DENIED PMH: LEFT BREAST CA WITH RECONSTRUCTION---I NFECTION RESOLVING CONTS CHEM 1X Q 3 WEEKS---LAST TX JUL 22, 2021 COMING FROM NEW JOB AT [employer]-----CHALLENG ING MORE THAN ANTICIPATED COUNSELING W/ JULIA. FORMER PT OF FOR ANX , INSOMNIA---RX CLONAZEPAM PLAN CONT MONTHLY EVIDEN BY STABLE ELIZABETH, CONT SUPPT Assessment The patient's current phase of treatment is Stable maintenance, OUD, recent lapse. > 1) Interpretation of Confirmatory (LCMS) Test Result: N/A due to NEG UDS > 2) Interpretation of Last Buprenorphine Confirmation Test Result: No concern > 3) Medication Dose: No report of cravings/withdrawa l symptoms. Pt will remain at current dose > 4) Markers of Recovery include: UDS NEGATIVE, COMPLIANCE WITH SCHED APPMTS AND COUNSELING. > 5) Counseling: Engaged in Counseling The patient does meet diagnostic criteria for opioid dependence. The patient is responding to treatment with buprenorphine at OBOT level of care at this phase of treatment. The patient does continue to be a good candidate for this level of care. LFT will be repeated per our clinical protocol. Urine drug testing is ordered today with medical necessity as below. LAB ORDERS - Confirmatory testing for illicit substances or absence of prescribed buprenorphine. UNEXPECTED results on UDS may impact this patient's treatment plan. The following tests require confirmation via LCMS: Y POS for AMPHETAMINE Y POS for BENZODIAZEPINES Y POS for COCAINE Y POS for METHADONE Y POS for OPIATES (INCLUDING FENTANYL) Y POS for OXYCODONE ADDITIONAL LAB(S) REQUESTED - if indicated, please order the following: NONE Plan Patient's visit frequency should be monthly. Frequency of UDS and confirmatory test, if applicable, should be monthly. Treatment plan review or change includes continue current level of care. Referrals made today include none. Prescription monitoring program is reviewed. If reviewed, I have identified agents prescribed to the patient in addition to any issued by our program; the patient is counseled regarding any risk of combining sedating agents. [email or web address] Not available 04/27/2021 08:36:41 05/24/2021 05/24/2021 Telemedicine Information: This telmed (audio + visual) appointment provided a MAT prescription. Time Start: 1644; Time End:1657 Provider Location: office; Patient Location: office Telemedicine Consent Given (verbal): Y Lab Results > Last UDS Result (Qual Screen): POS Buprenorphine and NO illicit drugs > Last Confirmatory Test Result (LCMS/Quant): N/A due to Negative UDS > Last Buprenorphine Confirmation Test Result: Bup: 808 ng/ml & Norbup: 624 ng/ml > Last LFT Result on 02/24/2021: WNL Since Last Visit THIS PT IS BEING TREATED FOR OUD WITH BUPRENORPHINE AND IS SEEN MONTHLY. CURRENT PRESCRIPTION IS SBX 16/4 MG/DAY. DOSE AMOUNT TAKEN TODAY: Full dose > Bio/psycho/social Update: MONTHLY MAT ASSHOLLY BEARD HAS MAINT STABLE SOBREITY DESPITE STRESSORS STRESSORS: 1) LEFT BREST CA W/ RECONSTRUC THAT LEAD TO INFECTION 2) MARITAL CONFLICKS EMOTIONAL SUPPT PROVIDED REPORTED TESTED POSTIVE FOR CV-19 QUARANTININES 1.5 WEEKS AGO NEW JOB AT [facility]. D/T FATIGUE AND LIFTINGS---TRAANSF ERRED TO NEW DEPT R/T LABELING AND PACKAGING CHEM COMPLETED Q 3 WEEKS [facility] (< ESTROGEN) LIVES W/ , 3 KIDS 14, 15, 20 COUNSELING W/ JULIA. ENCOURAGED TO F/U APPMT PLAN CONT MONTHLY R/T CONT STABLE RECOVERY AND SUPPT. Assessment The patient's current phase of treatment is Stable maintenance, OUD. > 1) Interpretation of Confirmatory (LCMS) Test Result: N/A due to NEG UDS > 2) Interpretation of Last Buprenorphine Confirmation Test Result: No concern > 3) Medication Dose: No report of cravings/withdrawa l symptoms. Pt will remain at current dose > 4) Markers of Recovery include: UDS NEGATIVE, COMPLIANCE WITH SCHED APPMTS AND COUNSELING. > 5) Counseling: Engaged in Counseling The patient does meet diagnostic criteria for opioid dependence. The patient is responding to treatment with buprenorphine at OBOT level of care at this phase of treatment. The patient does continue to be a good candidate for this level of care. LFT will be repeated per our clinical protocol. Urine drug testing is ordered today with medical necessity as below. LAB ORDERS - Confirmatory testing for illicit substances or absence of prescribed buprenorphine. UNEXPECTED results on UDS may impact this patient's treatment plan. The following tests require confirmation via LCMS: Y POS for AMPHETAMINE Y POS for BENZODIAZEPINES Y POS for COCAINE Y POS for METHADONE Y POS for OPIATES (INCLUDING FENTANYL) Y POS for OXYCODONE ADDITIONAL LAB(S) REQUESTED - if indicated, please order the following: NONE Plan Patient's visit frequency should be monthly. Frequency of UDS and confirmatory test, if applicable, should be monthly. Treatment plan review or change includes continue current level of care. Referrals made today include none. Prescription monitoring program is reviewed. If reviewed, I have identified agents prescribed to the patient in addition to any issued by our program; the patient is counseled regarding any risk of combining sedating agents. [email or web address] Not available 05/26/2021 07:57:28 06/21/2021 06/21/2021 Telemedicine Information: This telmed (audio + visual) appointment provided a MAT prescription. Time Start: 1631; Time End:1640 Provider Location: office; Patient Location: office Telemedicine Consent Given (verbal): Y Lab Results > Last UDS Result (Qual Screen): POS Buprenorphine and NO illicit drugs > Last Confirmatory Test Result (LCMS/Quant): N/A due to Negative UDS > Last Buprenorphine Confirmation Test Result: Bup: 2000 ng/ml & Norbup: 780 ng/ml > Last LFT Result on 02/24/2021: WNL Since Last Visit THIS PT IS BEING TREATED FOR OUD WITH BUPRENORPHINE AND IS SEEN MONTHLY. CURRENT PRESCRIPTION IS SBX 16/4 MG/DAY. DOSE AMOUNT TAKEN TODAY: Full dose > Bio/psycho/social Update: MONTHLY MAT ASSMT YANA CONT TO MAINT STABLE RECOVERY PROVIDING NEGATIVE UDS'S SHE IS FOCUSED DESPITE BREAST CANCER, HOME ISSUES W/ SPOUSE AND KIDS CHEMO--3 MORE TX'S LEFT LEFT BREAST RECONTRUCTION INFECTION IS HEALING WELL---POTENTIAL PLANS W/ ONC TO MOVE FRWD WITH BREAST RECONSTRUCTION NEW POSTION AT [employer] IS GOING WELL WITH LESS STRESS AND LESS LIFTING COUNSELING: FORMER PT OF SW/PSYCH--RX CLONAEPAM PLAN CONT MONTHLY FOR SOBRIETY SUPPT Assessment The patient's current phase of treatment is Stable maintenance, OUD. > 1) Interpretation of Confirmatory (LCMS) Test Result: N/A due to NEG UDS > 2) Interpretation of Last Buprenorphine Confirmation Test Result: No concern > 3) Medication Dose: No report of cravings/withdrawa l symptoms. Pt will remain at current dose > 4) Markers of Recovery include: UDS NEGATIVE, COMPLIANCE WITH SCHED APPMTS AND COUNSELING. > 5) Counseling: Urged to enage in counseling The patient does meet diagnostic criteria for opioid dependence. The patient is responding to treatment with buprenorphine at OBOT level of care at this phase of treatment. The patient does continue to be a good candidate for this level of care. LFT will be repeated per our clinical protocol. Urine drug testing is ordered today with medical necessity as below. LAB ORDERS - Confirmatory testing for illicit substances or absence of prescribed buprenorphine. UNEXPECTED results on UDS may impact this patient's treatment plan. The following tests require confirmation via LCMS: Y POS for AMPHETAMINE Y POS for BENZODIAZEPINES Y POS for COCAINE Y POS for METHADONE Y POS for OPIATES (INCLUDING FENTANYL) Y POS for OXYCODONE ADDITIONAL LAB(S) REQUESTED - if indicated, please order the following: NONE Plan Patient's visit frequency should be monthly. Frequency of UDS and confirmatory test, if applicable, should be monthly. Treatment plan review or change includes continue current level of care. Referrals made today include none. Prescription monitoring program is reviewed. If reviewed, I have identified agents prescribed to the patient in addition to any issued by our program; the patient is counseled regarding any risk of combining sedating agents. Not available 06/22/2021 08:16:08 07/19/2021 07/19/2021 Lab Results > Last UDS Result (Qual Screen): POS Buprenorphine and NO illicit drugs > Last Confirmatory Test Result (LCMS/Quant): Quantitative levels of: 7-aminoclonazepam, 463 (RX) > Last Buprenorphine Confirmation Test Result: Bup: 2000 ng/ml & Norbup: 746 ng/ml > Last LFT Result on 02/24/2021: WNL Since Last Visit THIS PT IS BEING TREATED FOR OUD WITH BUPRENORPHINE AND IS SEEN MONTHLY. CURRENT PRESCRIPTION IS BNX 8/2 mg BID. DOSE AMOUNT TAKEN TODAY: Full dose NUMBER OF FULL TABS/FILMS REMAININ > Bio/psycho/social Update: 40-yr-old female, seen today for a F/U visit. MAT for OUD. Stable in recovery. Pt denies any cravings or any illicit substance use since last visit. No adverse effects from BNX. Pt is interested in restarting Sublocade after cancer treatment. Pt has breast cancer. Currently in a chemotherapy treatment cycle, last chemo planned for 08/05/20. Also getting Lupron injections q3 months. Pt says that she is not in pain. Just does not feel well. Stable housing. Pt lives with her children and their father. Pt has a 21 yo, 15 yo (daughter) and 14 yo (son). Pt works FT. Plan: Continue BNX 16 mg TDD. Continue monthly assessments, monitor stability. Assessment The patient's current phase of treatment is Stable maintenance, OUD. > 1) Interpretation of Confirmatory (LCMS) Test Result: N/A due to NEG UDS > 2) Interpretation of Last Buprenorphine Confirmation Test Result: No concern > 3) Medication Dose: No report of cravings/withdrawa l symptoms. Pt will remain at current dose > 4) Markers of Recovery include: abstinence from illicit opiates, working, parenting > 5) Counseling: Engaged in Counseling The patient does meet diagnostic criteria for opioid dependence. The patient is responding to treatment with buprenorphine at OBOT level of care at this phase of treatment. The patient does continue to be a good candidate for this level of care. LFT will be repeated per our clinical protocol. Urine drug testing is ordered today with medical necessity as below. ADDITIONAL LAB(S) REQUESTED: - if indicated, please order the following: NONE Plan Patient's visit frequency should be monthly. Frequency of UDS and confirmatory test, if applicable, should be monthly. Treatment plan review or change includes continue current level of care. Referrals made today include none. Prescription monitoring program is reviewed. If reviewed, I have identified agents prescribed to the patient in addition to any issued by our program; the patient is counseled regarding any risk of combining sedating agents. Telemedicine Information: This telmed (audio + visual) appointment provided a MAT prescription. Time Start: 4:38 pm; Time End:4:48 pm Provider Location: home; Patient Location: home Telemedicine Consent Given (verbal): Y [email or web address] Not available 07/20/2021 12:23:44 Plan of Treatment Reminders Order Date Submit Date Provider Last Modified By Organization Details Last Modified Time Details Appointments None recorded. Lab drug screen, urine 2020 021 [email or web address] [employer] [facility], [address] [place], [id number], 18:06:38 drug screen, urine 2020 [facility], [address] [place], [address], 09:05:10 drug screen, urine 2020 021 [facility], [address] [place], [address], 09:27:04 drug screen, urine 2020 [facility], [address] [place], [id number], 12:33:43 drug screen, urine 2020 [facility], [address] [place], [id number], 10:12:15 Referral None recorded. Procedures None recorded. Surgeries None recorded. Imaging None recorded. Medication Orders Suboxone 8 mg-2 mg sublingual film 2020 [id number], [address], [place], [address], 16:36:03 Patient TargetsNo targets recorded. Patient Instructions Encounter Date Encounter Id Patient Instructions Last Modified By Organization Details Last Modified Time 03/25/2021 [id number] As part of your individualized treatment plan and program requirement, you will need to bring your correct prescription bottle and all used and unused medication and counseling verification to each appointment; > Agree to participate in counseling and bring counseling verification to each appointment; > Agree to present for random visits; > Agree to not falsify your urine specimens. [email or web address] Not available 03/25/2021 16:55:58 Education provid ed at today's visit included: Review of patient's individualized treatment plan; Review of program policies: RX, visit, counseling and DATA compliance; Review medication administration technique; Discussion proper care of medication/safety/ lock box; Counseling re: trigger avoidance, relapse prevention and the importance of developing a sober network; Counseling re safe sex and control; Review risk of BZD and BUP, as well as ETOH; Counseling re: Discovery & Drop out prevention in early recovery. Not available 03/25/2021 16:55:58 04/26/2021 [id number] As part of your individualized treatment plan and program requirement, you will need to bring your correct prescription bottle and all used and unused medication and counseling verification to each appointment; > Agree to participate in counseling and bring counseling verification to each appointment; > Agree to present for random visits; > Agree to not falsify your urine specimens. [email or web address] Not available 04/26/2021 16:42:30 Education provid ed at today's visit included: Review of patient's individualized treatment plan; Review of program policies: RX, visit, counseling and DATA compliance; Review medication administration technique; Discussion proper care of medication/safety/ lock box; Counseling re: trigger avoidance, relapse prevention and the importance of developing a sober network; Counseling re safe sex and control; Review risk of BZD and BUP, as well as ETOH; Counseling re: Discovery & Drop out prevention in early recovery. Not available 04/26/2021 16:42:30 05/24/2021 [id number] As part of your individualized treatment plan and program requirement, you will need to bring your correct prescription bottle and all used and unused medication and counseling verification to each appointment; > Agree to participate in counseling and bring counseling verification to each appointment; > Agree to present for random visits; > Agree to not falsify your urine specimens. Not available 05/24/2021 16:28:08 Education provid ed at today's visit included: Review of patient's individualized treatment plan; Review of program policies: RX, visit, counseling and DATA compliance; Review medication administration technique; Discussion proper care of medication/safety/ lock box; Counseling re: trigger avoidance, relapse prevention and the importance of developing a sober network; Counseling re safe sex and control; Review risk of BZD and BUP, as well as ETOH; Counseling re: Discovery & Drop out prevention in early recovery. Not available 05/24/2021 16:28:08 06/21/2021 [id number] As part of your individualized treatment plan and program requirement, you will need to bring your correct prescription bottle and all used and unused medication and counseling verification to each appointment; > Agree to participate in counseling and bring counseling verification to each appointment; > Agree to present for random visits; > Agree to not falsify your urine specimens. Not available 06/21/2021 16:36:29 Education provid ed at today's visit included: Review of patient's individualized treatment plan; Review of program policies: RX, visit, counseling and DATA compliance; Review medication administration technique; Discussion proper care of medication/safety/ lock box; Counseling re: trigger avoidance, relapse prevention and the importance of developing a sober network; Counseling re safe sex and control; Review risk of BZD and BUP, as well as ETOH; Counseling re: Discovery & Drop out prevention in early recovery. Not available 06/21/2021 16:36:29 07/19/2021 [id number] As part of your individualized treatment plan and program requirement, you will need to bring your correct prescription bottle and all used and unused medication and counseling verification to each appointment; > Agree to participate in counseling and bring counseling verification to each appointment; > Agree to present for random visits; > Agree to not falsify your urine specimens. Not available 07/19/2021 16:17:41 Education provid ed at today's visit included: Review of patient's individualized treatment plan; Review of program policies: RX, visit, counseling and DATA compliance; Review medication administration technique; Discussion proper care of medication/safety/ lock box; Counseling re: trigger avoidance, relapse prevention and the importance of developing a sober network; Counseling re safe sex and control; Review risk of BZD and BUP, as well as ETOH; Counseling re: Discovery & Drop out prevention in early recovery. Not available 07/19/2021 16:17:41 Reason for Referral None Reported. Results Created Date Observation Date Name Description Value Unit Range Abnormal Flag Note LastModifiedBy Organization Detail LastModifiedTime 02/25/20 21 02/24/2021 GGT GGT 9 U/L 3-50 normal Not Available [facility] [address], [place], [address], 02/24/2021 17:55:16 02/25/20 21 02/24/2021 AST AST 14 U/L 10-30 normal Not Available [employer] [facility] [address], [place], [address], 02/24/2021 17:55:17 02/25/20 21 02/24/2021 ALT ALT 6 U/L 6-29 normal Not Available [employer] [facility] [address], [place], [address], 02/24/2021 17:55:17 02/25/20 21 02/24/2021 BUPRE NORPH INE PT SCREE TREMAINE amphetamines NEGATI VE NG/mL 1,000 Kwadwo ortega by TMAARA MCMULLEN Not Available [address] [place], [id number], 02/25/2021 09:04:21 02/25/20 21 02/24/2021 BUPRE NORPH INE PT SCREE TREMAINE benzodiazapi jero NEGATI VE NG/mL 200 Not Available [facility] [place], [id number], 02/25/2021 09:04:21 02/25/20 21 02/24/2021 BUPRE NORPH INE PT SCREE TREMAINE buprenorphin e POSITI VE NG/mL 5 Not Available [address] [address] [place], [id number], 02/25/2021 09:04:21 02/25/20 21 02/24/2021 BUPRE NORPH INE PT SCREE TREMAINE cocaine metabolite NEGATI VE NG/mL 150 Not Available [facility] [address] [place], [address], 02/25/2021 09:04:21 02/25/20 21 02/24/2021 BUPRE NORPH INE PT SCREE TREMAINE opiates NEGATI VE NG/mL 300 Not Available [address] [address] [place], [address], 02/25/2021 09:04:21 02/25/20 21 02/24/2021 BUPRE NORPH INE PT SCREE TREMAINE oxycodone NEGATI VE NG/mL 300 Not Available [address] [address] [place], [id number], 02/25/2021 09:04:21 02/25/20 21 02/24/2021 BUPRE NORPH INE PT SCREE TREMAINE fentanyl NEGATI VE NG/mL 2 Not Available [address] [address] [place], [address], 02/25/2021 09:04:21 02/25/20 21 02/24/2021 BUPRE NORPH INE PT SCREE TREMAINE ethyl alcohol NEGATI VE mg/dL 10 Not Available [address] [address] [place], [id number], 02/25/2021 09:04:21 02/25/20 21 02/24/2021 BUPRE NORPH INE PT SCREE TREMAINE methadone metabolite NEGATI VE NG/mL 300 Not Available [address] [address] [place], [address], 02/25/2021 09:04:21 02/25/20 21 02/24/2021 BUPRE NORPH INE PT SCREE TREMAINE urine creatinine 85.2 mg/dL >20 Not Available [address] [address] [place], [address], 02/25/2021 09:04:21 02/25/20 21 02/24/2021 BUPRE NORPH INE PT SCREE TREMAINE urine pH 6.90 4.5-9. 0 Not Available [address] [address] [place], [address], 02/25/2021 09:04:21 02/25/20 21 02/24/2021 BUPRE NORPH INE PT SCREE TREMAINE specific gravity 1.007 1.003- 1.035 Not Available [address] [address] [place], [address], 02/25/2021 09:04:21 02/25/20 21 02/24/2021 PRESC RIBED DRUG CONFI RMATI ON [place] , BUPRE NORPH INE, QN, U buprenorphin e 735.7 NG/mL 20 Kwadwo ortega by TAMARA MCMULLEN Not Available [address] [place] [address] [place], [address], 02/28/2021 11:51:54 02/25/20 21 02/24/2021 PRESC RIBED DRUG CONFI RMATI ON [place] , BUPRE NORPH INE, QN, U norbuprenorp julia 245.2 NG/mL 50 Not Available [place] [address] [place], [address], 02/28/2021 11:51:54 02/25/20 21 02/24/2021 PRESC RIBED DRUG CONFI RMATI ON [place] , BUPRE NORPH INE, QN, U alpha-hydrox yalprazolam NEGATI VE NG/mL 25 Not Available [facility] [address] [place], [address], 02/28/2021 11:51:54 02/25/20 21 02/24/2021 PRESC RIBED DRUG CONFI RMATI ON [place] , BUPRE NORPH INE, QN, U 7-aminoclona zepam 192.8 NG/mL 40 high Not Available [address] [place] [address] [place], [address], 02/28/2021 11:51:54 02/25/20 21 02/24/2021 PRESC RIBED DRUG CONFI RMATI ON [place] , BUPRE NORPH INE, QN, U diazepam NEGATI VE NG/mL 50 Not Available [facility] [address] [place], [address], 02/28/2021 11:51:54 02/25/20 21 02/24/2021 PRESC RIBED DRUG CONFI RMATI ON [place] , BUPRE NORPH INE, QN, U lorazepam NEGATI VE NG/mL 50 Not Available [address] [place] [address] [place], [address], 02/28/2021 11:51:54 02/25/20 21 02/24/2021 PRESC RIBED DRUG CONFI RMATI ON [place] , BUPRE NORPH INE, QN, U nordiazepam NEGATI VE NG/mL 50 Not Available [address] [place] [address] [place], [address], 02/28/2021 11:51:54 02/25/20 21 02/24/2021 PRESC RIBED DRUG CONFI RMATI ON [place] , BUPRE NORPH INE, QN, U temazepam NEGATI VE NG/mL 50 Not Available [address] [place] [address] [place], [address], 02/28/2021 11:51:54 02/25/20 21 02/24/2021 PRESC RIBED DRUG CONFI RMATI ON [place] , BUPRE NORPH INE, QN, U legend ABBREV IATION S LOW - Detec mary but unqua ntifi able OLR - Outsi de of linea r range ATR - Addit ional Testi ng Requi red Not Available [address] [place] [address] [place], [address], 02/28/2021 11:51:54 02/25/20 21 02/24/2021 PRESC RIBED DRUG CONFI RMATI ON [place] , BUPRE NORPH INE, QN, U billing only ([id number]) BILLIN G ONLY Not Available [address] [place] [address] [place], [address], 02/28/2021 11:51:54 02/25/20 21 02/24/2021 pregn bib test, urine HCG negati ve Not Available [facility] [address], [address], 02/24/2021 09:05:28 03/25/20 21 03/25/2021 BUPRE NORPH INE PT SCREE TREMAINE amphetamines NEGATI VE NG/mL 1,000 Elect berry dietz d by JORDI CAMACHO Not Available [address] [place] [address] [place], [address], 03/30/2021 09:52:00 03/25/20 21 03/25/2021 BUPRE NORPH INE PT SCREE TREMAINE benzodiazapi jero NEGATI VE NG/mL 200 Not Available [address] [place] [address] [place], [address], 03/30/2021 09:52:00 03/25/20 21 03/25/2021 BUPRE NORPH INE PT SCREE TREMAINE buprenorphin e POSITI VE NG/mL 5 Not Available [address] [place] [address] [place], [address], 03/30/2021 09:52:00 03/25/20 21 03/25/2021 BUPRE NORPH INE PT SCREE TREMAINE cocaine metabolite NEGATI VE NG/mL 150 Not Available [address] [address] [place], [address], 03/30/2021 09:52:00 03/25/20 21 03/25/2021 BUPRE NORPH INE PT SCREE TREMAINE opiates NEGATI VE NG/mL 300 Not Available [address] [place] [address] [place], [address], 03/30/2021 09:52:00 03/25/20 21 03/25/2021 BUPRE NORPH INE PT SCREE TREMAINE oxycodone NEGATI VE NG/mL 300 Not Available [address] [place] [address] [place], [address], 03/30/2021 09:52:00 03/25/20 21 03/25/2021 BUPRE NORPH INE PT SCREE TREMAINE fentanyl NEGATI VE NG/mL 2 Not Available [facility] [place], [address], 03/30/2021 09:52:00 03/25/20 21 03/25/2021 BUPRE NORPH INE PT SCREE TREMAINE ethyl alcohol NEGATI VE mg/dL 10 Not Available [facility] [place], [address], 03/30/2021 09:52:00 03/25/20 21 03/25/2021 BUPRE NORPH INE PT SCREE TREMAINE methadone metabolite NEGATI VE NG/mL 300 Not Available [facility] [place], [address], 03/30/2021 09:52:00 03/25/20 21 03/25/2021 BUPRE NORPH INE PT SCREE TREMAINE urine creatinine 219.4 mg/dL >20 Not Available [place] [address] [place], [address], 03/30/2021 09:52:00 03/25/20 21 03/25/2021 BUPRE NORPH INE PT SCREE TREMAINE urine pH 6.10 4.5-9. 0 Not Available [address] [place] [address] [place], [address], 03/30/2021 09:52:00 03/25/2003/25/2021 BUPRE NORPH INE PT SCREE TREMAINE specific gravity 1.027 1.003- 1.035 Not Available [address] [place] [address] [place], [address], 03/30/2021 09:52:00 03/25/2003/25/2021 PRESC RIBED DRUG CONFI RMATI ON [place] , BUPRE NORPH INE, QN, U buprenorphin e OLR(>2 000) NG/mL 20 high Elect berry dietz d by JORDI CAMACHO Not Available [address] [place] [address] [place], [address], 03/31/2021 11:46:14 03/25/20 21 03/25/2021 PRESC RIBED DRUG CONFI RMATI ON [place] , BUPRE NORPH INE, QN, U norbuprenorp julia 1805.0 NG/mL 50 Not Available [place] [address] [place], [address], 03/31/2021 11:46:14 03/25/20 21 03/25/2021 PRESC RIBED DRUG CONFI RMATI ON [place] , BUPRE NORPH INE, QN, U alpha-hydrox yalprazolam NEGATI VE NG/mL 25 Not Available [facility] [place], [address], 03/31/2021 11:46:14 03/25/20 21 03/25/2021 PRESC RIBED DRUG CONFI RMATI ON [place] , BUPRE NORPH INE, QN, U 7-aminoclona zepam 319.9 NG/mL 40 high Not Available [address] [place] [address] [place], [address], 03/31/2021 11:46:14 03/25/20 21 03/25/2021 PRESC RIBED DRUG CONFI RMATI ON [place] , BUPRE NORPH INE, QN, U diazepam NEGATI VE NG/mL 50 Not Available [facility] [place], [address], 03/31/2021 11:46:14 03/25/20 21 03/25/2021 PRESC RIBED DRUG CONFI RMATI ON [place] , BUPRE NORPH INE, QN, U lorazepam NEGATI VE NG/mL 50 Not Available [address] [address] [place], [address], 03/31/2021 11:46:14 03/25/20 21 03/25/2021 PRESC RIBED DRUG CONFI RMATI ON [place] , BUPRE NORPH INE, QN, U nordiazepam NEGATI VE NG/mL 50 Not Available [facility] [place], [address], 03/31/2021 11:46:14 03/25/20 21 03/25/2021 PRESC RIBED DRUG CONFI RMATI ON [place] , BUPRE NORPH INE, QN, U temazepam NEGATI VE NG/mL 50 Not Available [facility] [place], [address], 03/31/2021 11:46:14 03/25/20 21 03/25/2021 PRESC RIBED DRUG CONFI RMATI ON [place] , BUPRE NORPH INE, QN, U legend ABBREV IATION S LOW - Detec mary but unqua ntifi able OLR - Outsi de of linea r range ATR - Addit ional Testi ng Requi red Not Available [address] [place] [address] [place], [address], 03/31/2021 11:46:14 03/25/20 21 03/25/2021 PRESC RIBED DRUG CONFI RMATI ON [place] , BUPRE NORPH INE, QN, U billing only ([id number]) BILLIN G ONLY Not Available [facility] [place], [address], 03/31/2021 11:46:14 04/26/20 21 04/26/2021 BUPRE NORPH INE PT SCREE TREMAINE amphetamines NEGATI VE NG/mL 1,000 Kwadwo ortega by JORDI CAMACHO Not Available [address] [place] [address] [place], [address], 04/28/2021 09:05:09 04/26/20 21 04/26/2021 BUPRE NORPH INE PT SCREE TREMAINE benzodiazapi jero NEGATI VE NG/mL 200 Not Available [address] [place] [address] [place], [address], 04/28/2021 09:05:09 04/26/20 21 04/26/2021 BUPRE NORPH INE PT SCREE TREMAINE buprenorphin e POSITI VE NG/mL 5 Not Available [address] [address] [place], [address], 04/28/2021 09:05:09 04/26/20 21 04/26/2021 BUPRE NORPH INE PT SCREE TREMAINE cocaine metabolite NEGATI VE NG/mL 150 Not Available [address] [address] [place], [address], 04/28/2021 09:05:09 04/26/20 21 04/26/2021 BUPRE NORPH INE PT SCREE TREMAINE opiates NEGATI VE NG/mL 300 Not Available [address] [place] [address] [place], [address], 04/28/2021 09:05:09 04/26/20 21 04/26/2021 BUPRE NORPH INE PT SCREE TREMAINE oxycodone NEGATI VE NG/mL 300 Not Available [address] [address] [place], [address], 04/28/2021 09:05:09 04/26/20 21 04/26/2021 BUPRE NORPH INE PT SCREE TREMAINE fentanyl NEGATI VE NG/mL 2 Not Available [address] [place] [address] [place], [address], 04/28/2021 09:05:09 04/26/20 21 04/26/2021 BUPRE NORPH INE PT SCREE TREMAINE ethyl alcohol NEGATI VE mg/dL 10 Not Available [address] [address] [place], [address], 04/28/2021 09:05:09 04/26/20 21 04/26/2021 BUPRE NORPH INE PT SCREE TREMAINE methadone metabolite NEGATI VE NG/mL 300 Not Available [address] [place] [address] [place], [address], 04/28/2021 09:05:09 04/26/20 21 04/26/2021 BUPRE NORPH INE PT SCREE TREMAINE urine creatinine 111.6 mg/dL >20 Not Available [place] [address] [place], [address], 04/28/2021 09:05:09 04/26/20 21 04/26/2021 BUPRE NORPH INE PT SCREE TREMAINE urine pH 6.00 4.5-9. 0 Not Available [address] [place] [address] [place], [address], 04/28/2021 09:05:09 04/26/20 21 04/26/2021 BUPRE NORPH INE PT SCREE TREMAINE specific gravity 1.013 1.003- 1.035 Not Available [address] [place] [address] [place], [address], 04/28/2021 09:05:09 04/26/20 21 04/26/2021 PRESC RIBED DRUG CONFI RMATI ON [place] , BUPRE NORPH INE, QN, U buprenorphin e 808.0 NG/mL 20 Elect berry ortega by JORDI CAMACHO Not Available [address] [place] [address] [place], [address], 05/03/2021 08:46:50 04/26/20 21 04/26/2021 PRESC RIBED DRUG CONFI RMATI ON [place] , BUPRE NORPH INE, QN, U norbuprenorp julia 624.2 NG/mL 50 Not Available [address] [place] [address] [place], [address], 05/03/2021 08:46:50 04/26/20 21 04/26/2021 PRESC RIBED DRUG CONFI RMATI ON [place] , BUPRE NORPH INE, QN, U alpha-hydrox yalprazolam NEGATI VE NG/mL 25 Not Available [address] [address] [place], [address], 05/03/2021 08:46:50 04/26/20 21 04/26/2021 PRESC RIBED DRUG CONFI RMATI ON [place] , BUPRE NORPH INE, QN, U 7-aminoclona zepam 616.7 NG/mL 40 high Not Available [address] [place] [address] [place], [address], 05/03/2021 08:46:50 04/26/20 21 04/26/2021 PRESC RIBED DRUG CONFI RMATI ON [place] , BUPRE NORPH INE, QN, U diazepam NEGATI VE NG/mL 50 Not Available [address] [address] [place], [address], 05/03/2021 08:46:50 04/26/20 21 04/26/2021 PRESC RIBED DRUG CONFI RMATI ON [place] , BUPRE NORPH INE, QN, U lorazepam NEGATI VE NG/mL 50 Not Available [address] [place] [address] [place], [address], 05/03/2021 08:46:50 04/26/20 21 04/26/2021 PRESC RIBED DRUG CONFI RMATI ON [place] , BUPRE NORPH INE, QN, U nordiazepam NEGATI VE NG/mL 50 Not Available [address] [place] [address] [place], [address], 05/03/2021 08:46:50 04/26/20 21 04/26/2021 PRESC RIBED DRUG CONFI RMATI ON [place] , BUPRE NORPH INE, QN, U temazepam NEGATI VE NG/mL 50 Not Available [address] [place] [address] [place], [address], 05/03/2021 08:46:50 04/26/20 21 04/26/2021 PRES RIBED DRUG CONFI RMATI ON [place] , BUPRE NORPH INE, QN, U legend ABBREV IATION S LOW - Detec mary but unqua ntifi able OLR - Outsi de of linea r range ATR - Addit ional Testi ng Requi red Not Available [address] [place] [address] [place], [address], 05/03/2021 08:46:50 04/26/20 21 04/26/2021 [facility] RIBED DRUG CONFI RMATI ON [place] , BUPRE NORPH INE, QN, U billing only ([id number]) BILLIN G ONLY Not Available [facility] [place], [address], 05/03/2021 08:46:50 05/24/20 21 05/24/2021 BUPRE NORPH INE PT SCREE TREMAINE amphetamines NEGATI VE NG/mL 1,000 Kwadwo dietz d by JORDI CAMACHO Not Available [address] [place] [address] [place], [address], 05/26/2021 09:27:04 05/24/20 21 05/24/2021 BUPRE NORPH INE PT SCREE TREMAINE benzodiazapi jero POSITI VE NG/mL 200 abnormal Not Available [facility] [place], [address], 05/26/2021 09:27:04 05/24/20 21 05/24/2021 BUPRE NORPH INE PT SCREE TREMAINE buprenorphin e POSITI VE NG/mL 5 Not Available [facility] [place], [address], 05/26/2021 09:27:04 05/24/20 21 05/24/2021 BUPRE NORPH INE PT SCREE TREMAINE cocaine metabolite NEGATI VE NG/mL 150 Not Available [facility] [place], [address], 05/26/2021 09:27:04 05/24/20 21 05/24/2021 BUPRE NORPH INE PT SCREE TREMAINE opiates NEGATI VE NG/mL 300 Not Available [address] [address] [place], [address], 05/26/2021 09:27:04 05/24/20 21 05/24/2021 BUPRE NORPH INE PT SCREE TREMAINE oxycodone NEGATI VE NG/mL 300 Not Available [address] [place] [address] [place], [address], 05/26/2021 09:27:04 05/24/20 21 05/24/2021 BUPRE NORPH INE PT SCREE TREMAINE fentanyl NEGATI VE NG/mL 2 Not Available [address] [address] [place], [address], 05/26/2021 09:27:04 05/24/20 21 05/24/2021 BUPRE NORPH INE PT SCREE TREMAINE ethyl alcohol NEGATI VE mg/dL 10 Not Available [address] [place] [address] [place], [address], 05/26/2021 09:27:04 05/24/20 21 05/24/2021 BUPRE NORPH INE PT SCREE TREMAINE methadone metabolite NEGATI VE NG/mL 300 Not Available [address] [place] [address] [place], [address], 05/26/2021 09:27:04 05/24/20 21 05/24/2021 BUPRE NORPH INE PT SCREE TREMAINE urine creatinine 214.9 mg/dL >20 Not Available [address] [place] [address] [place], [address], 05/26/2021 09:27:04 05/24/20 21 05/24/2021 BUPRE NORPH INE PT SCREE TREMAINE urine pH 7.60 4.5-9. 0 Not Available [address] [place] [address] [place], [address], 05/26/2021 09:27:04 05/24/20 21 05/24/2021 BUPRE NORPH INE PT DELROY PENALOZA specific gravity 1.020 1.003- 1.035 Not Available [address] [place] [address] [place], [address], 05/26/2021 09:27:04 05/24/20 21 05/24/2021 PRESC RIBED DRUG CONFI RMATI ON [place] , BUPRE NORPH INE, QN, U buprenorphin e OLR(>2 000) NG/mL 20 high Elect berry dietz d by JORDI CAMACHO Not Available [address] [place] [address] [place], [address], 05/30/2021 10:01:35 05/24/20 21 05/24/2021 PRESC RIBED DRUG CONFI RMATI ON [place] , BUPRE NORPH INE, QN, U norbuprenorp julia 780.7 NG/mL 50 Not Available [address] [place] [address] [place], [address], 05/30/2021 10:01:35 05/24/20 21 05/24/2021 PRESC RIBED DRUG CONFI RMATI ON [place] , BUPRE NORPH INE, QN, U alpha-hydrox yalprazolam NEGATI VE NG/mL 25 Not Available [address] [place] [address] [place], [address], 05/30/2021 10:01:35 05/24/20 21 05/24/2021 PRESC RIBED DRUG CONFI RMATI ON [place] , BUPRE NORPH INE, QN, U 7-aminoclona zepam 1366.9 NG/mL 40 high Not Available [address] [place] [address] [place], [address], 05/30/2021 10:01:35 05/24/20 21 05/24/2021 PRESC RIBED DRUG CONFI RMATI ON [place] , BUPRE NORPH INE, QN, U diazepam NEGATI VE NG/mL 50 Not Available [address] [place] [address] [place], [address], 05/30/2021 10:01:35 05/24/20 21 05/24/2021 PRESC RIBED DRUG CONFI RMATI ON [place] , BUPRE NORPH INE, QN, U lorazepam NEGATI VE NG/mL 50 Not Available [address] [place] [address] [place], [address], 05/30/2021 10:01:35 05/24/20 21 05/24/2021 PRESC RIBED DRUG CONFI RMATI ON [place] , BUPRE NORPH INE, QN, U nordiazepam NEGATI VE NG/mL 50 Not Available [address] [place] [address] [place], [address], 05/30/2021 10:01:35 05/24/20 21 05/24/2021 PRESC RIBED DRUG CONFI RMATI ON [place] , BUPRE NORPH INE, QN, U temazepam NEGATI VE NG/mL 50 Not Available [address] [place] [address] [place], [address], 05/30/2021 10:01:35 05/24/20 21 05/24/2021 PRESC RIBED DRUG CONFI RMATI ON [place] , BUPRE NORPH INE, QN, U legend ABBREV IATION S LOW - Detec mary but unqua ntifi able OLR - Outsi de of linea r range ATR - Addit ional Testi ng Requi red Not Available [address] [place] [address] [place], [address], 05/30/2021 10:01:35 05/24/20 21 05/24/2021 PRESC RIBED DRUG CONFI RMATI ON [place] , BUPRE NORPH INE, QN, U billing only ([id number]) [place] ONLY Not Available [facility] [place], [address], 05/30/2021 10:01:35 06/21/20 21 06/21/2021 BUPRE NORPH INE PT SCREE TREMAINE amphetamines Negati ve NG/mL 1,000 Elect berry dietz d by JORDI CAMACHO Not Available [address] [place] [address] [place], [address], 06/23/2021 12:33:43 06/21/20 21 06/21/2021 BUPRE NORPH INE PT SCREE TREMAINE benzodiazapi jero Negati ve NG/mL 200 Not Available [facility] [place], [address], 06/23/2021 12:33:43 06/21/20 21 06/21/2021 BUPRE NORPH INE PT SCREE TREMAINE buprenorphin e Positi ve NG/mL 5 Not Available [address] [address] [place], [address], 06/23/2021 12:33:43 06/21/20 21 06/21/2021 BUPRE NORPH INE PT SCREE TREMAINE cocaine metabolite Negati ve NG/mL 150 Not Available [address] [place] [address] [place], [address], 06/23/2021 12:33:43 06/21/20 21 06/21/2021 BUPRE NORPH INE PT SCREE TREMAINE opiates Negati ve NG/mL 300 Not Available [address] [place] [address] [place], [address], 06/23/2021 12:33:43 06/21/20 21 06/21/2021 BUPRE NORPH INE PT SCREE TREMAINE oxycodone Negati ve NG/mL 300 Not Available [address] [place] [address] [place], [address], 06/23/2021 12:33:43 06/21/20 21 06/21/2021 BUPRE NORPH INE PT SCREE TREMAINE fentanyl Negati ve NG/mL 2 Not Available [facility] [place], [address], 06/23/2021 12:33:43 06/21/20 21 06/21/2021 BUPRE NORPH INE PT SCREE RTEMAINE ethyl alcohol Negati ve mg/dL 10 Not Available [facility] [address] [place], [address], 06/23/2021 12:33:43 06/21/20 21 06/21/2021 BUPRE NORPH INE PT SCREE TREMAINE methadone metabolite Negati ve NG/mL 300 Not Available [facility] [place], [address], 06/23/2021 12:33:43 06/21/20 21 06/21/2021 BUPRE NORPH INE PT SCREE TREMAINE urine creatinine 264.6 mg/dL >20 Not Available [place] [address] [place], [address], 06/23/2021 12:33:43 06/21/20 21 06/21/2021 BUPRE NORPH INE PT SCREE TREMAINE urine pH 6.30 4.5-9. 0 Not Available [address] [place] [address] [place], [address], 06/23/2021 12:33:43 06/21/20 21 06/21/2021 BUPRE NORPH INE PT SCREE TREMAINE specific gravity 1.035 1.003- 1.035 Not Available [address] [place] [address] [place], [address], 06/23/2021 12:33:43 07/19/20 21 07/19/2021 BUPRE NORPH INE PT SCREE TREMAINE amphetamines Negati ve NG/mL 1,000 Kwadwo ortega by KEEGAN REID Not Available [address] [place] [address] [place], [address], 07/21/2021 10:12:15 07/19/20 21 07/19/2021 BUPRE NORPH INE PT SCREE TREMAINE benzodiazapi jero Negati ve NG/mL 200 Not Available [facility] [place], [address], 07/21/2021 10:12:15 07/19/20 21 07/19/2021 BUPRE NORPH INE PT SCREE TREMAINE buprenorphin e Positi ve NG/mL 5 Not Available [facility] [place], [address], 07/21/2021 10:12:15 07/19/20 21 07/19/2021 BUPRE NORPH INE PT SCREE TREMAINE cocaine metabolite Negati ve NG/mL 150 Not Available [facility] [place], [address], 07/21/2021 10:12:15 07/19/20 21 07/19/2021 BUPRE NORPH INE PT SCREE TREMAINE opiates Negati ve NG/mL 300 Not Available [facility] [place], [address], 07/21/2021 10:12:15 07/19/20 21 07/19/2021 BUPRE NORPH INE PT SCREE TREMAINE oxycodone Negati ve NG/mL 300 Not Available [facility] [place], [address], 07/21/2021 10:12:15 07/19/20 21 07/19/2021 BUPRE NORPH INE PT SCREE TREMAINE fentanyl Negati ve NG/mL 2 Not Available [facility] [place], [address], 07/21/2021 10:12:15 07/19/20 21 07/19/2021 BUPRE NORPH INE PT SCREE TREMAINE ethyl alcohol Negati ve mg/dL 10 Not Available [facility] [place], [address], 07/21/2021 10:12:15 07/19/20 21 07/19/2021 BUPRE NORPH INE PT SCREE TREMAINE methadone metabolite Negati ve NG/mL 300 Not Available [address] [place] [address] [place], [address], 07/21/2021 10:12:15 07/19/20 21 07/19/2021 BUPRE NORPH INE PT SCREE TREMAINE urine creatinine 240.2 mg/dL >20 Not Available [place] [address] [place], [address], 07/21/2021 10:12:15 07/19/20 21 07/19/2021 BUPRE NORPH INE PT SCREE TREMAINE urine pH 5.40 4.5-9. 0 Not Available [address] [place] [address] [place], [address], 07/21/2021 10:12:15 07/19/20 21 07/19/2021 BUPRE NORPH INE PT SCREE TREMAINE specific gravity 1.027 1.003- 1.035 Not Available [place] [address] Mary Mire[place], [address], 07/21/2021 10:12:15 Result Notes None recorded. Problems Name Problem SNOMED Code Status Onset Date Resolution Date Notes Provider Name and Address Organization Details Recorded Time Opioid dependence 23368981 Active 2019 France Rubio MD [address] [place], [place] [address]h[place], [address], [facility] [employer], 0 14:38:44 Viral hepatitis C 09808845 Active 2019 VIRAL LOAD NOT DETECTABLE France Rubio MD [address] [place], [place] [address]h[place], [address], [facility] [employer] 0 14:39:09 Anxiety 20269244 Active 2019 France Rubio MD [address] [place], [place] [address]h[place], [address], [place] [facility] 0 14:39:22 Malignant tumor of breast 337888633 Active 2019 LEFT JORDI CAMACHO, SALES SERVICE REPRESENTATIVE [address] [facility] [place], [address], [facility] [employer] [facility] 0 09:47:38 Excision of left breast Active 2020 JORDI CAMACHO, SALES SERVICE REPRESENTATIVE [address] [facility] [place], [address], [facility] 1 09:57:06 History of left mastectomy 091769777 Active 2020 JORDI CAMACHO, SALES SERVICE REPRESENTATIVE [address] [facility] [place], [address], [employer] [facility] 1 09:57:22 Operation on breast Active 2020 JORDI CAMACHO, ADALBERTO [address] [facility] [place], [address], [facility] 1 10:00:18 Drug withdrawal 746135668 Active 2020 JORDI CAMACHO, ADALBERTO [address] [facility] [place], [address], [facility] 1 10:00:47 Problem Notes None recorded. Procedures Surgical History Date Name Laterality Status Provider Name and Address Organization Details Recorded Time 07/19/2021 04986, G0480, G0481 completed [employer] 07/19/2021 16:17:41 06/21/2021 04442, G0480, G0481 completed [employer] 06/21/2021 16:36:29 05/24/2021 44218, G0480, G0481 completed [employer] 05/24/2021 16:28:08 04/26/2021 33393, G0480, G0481 completed Ivon Colon [facility] 04/26/2021 16:42:30 03/25/2021 98202, G0480, G0481 completed [employer] 03/25/2021 16:55:58 02/24/2021 91098, G0480, G0481 completed Delfina Terrazas [facility] 02/24/2021 09:00:56 01/28/2021 51838, G0480, G0481 completed Mariia Camacho [facility] 01/28/2021 13:14:10 12/31/2020 46260, G0480, G04[address] [facility] 12/31/2020 10:01:16 12/02/2020 37916, G0480, G04[address] [facility] 12/02/2020 09:33:21 11/02/2020 00322, G0480, G04[address] [facility] 11/02/2020 08:31:00 10/05/2020 34227, G0480, G04[address] [facility] 10/05/2020 08:53:15 09/07/2020 98824, G0480, G0481 completed [facility] 09/07/2020 14:06:25 08/10/2020 35280, G0480, G0481 completed Nelsy Shaffer [facility] 08/10/2020 09:14:07 07/13/2020 79981, G0480, G0481 completed Minerva [facility] 07/13/2020 09:04:08 05/26/2020 79253, G0480, G0481 completed Minerva Tab [facility] 05/26/2020 13:49:02 04/27/2020 51747, G0480, G0481 [facility] 04/27/2020 13:36:49 03/26/2020 56125, G0480, G0481 completed Minerva Tab [facility] 03/26/2020 13:41:32 02/25/2020 85871, G0480, G0481 completed Minerva Tab [facility] 02/25/2020 13:40:54 01/28/2020 13229, G0480, G0481 completed Minerva Tab [facility] 01/28/2020 13:35:55 12/31/2019 89777, G0480, G0481 completed Marilee Colon [place] [facility] 12/31/2019 09:00:22 12/19/2019 99616, G0480, G0481 completed [facility] 12/19/2019 09:11:53 12/01/2019 09866, G0480, G0481 completed Minerva Tab [facility] 12/01/2019 16:00:57 11/14/2019 97047, G0480, G0481 completed Marilee Colon [facility] 11/14/2019 08:49:27 10/30/2019 15905, G0480, G0481 completed ARGELIA LEDBETTER NP [address] [place], [address], [place] [facility] 10/30/2019 12:42:41 10/16/2019 53358, G0480, G0481 completed Marilee Colon MA [facility] 10/16/2019 08:00:49 10/02/2019 [id number], G0480, G0481 completed Ivon Colon MA [facility] 10/02/2019 14:33:18 09/17/2019 [id number], G0480, G0481 completed Ivon Colon MA [facility] 09/17/2019 13:43:16 09/11/2019 [id number], G0480, G0481 completed Minerva Tab [facility] 09/11/2019 14:40:41 09/03/2019 [id number], G0480, G0481 completed Ivon Colon MA [facility] 09/03/2019 14:48:22 08/27/2019 [id number], G0480, G0481 completed Minerva Tab MA [facility] 08/27/2019 13:46:45 08/20/2019 [id number], G0480, G0481 completed Ivon Colon MA [facility] 08/20/2019 13:45:37 Imaging Results None recorded. Procedure Notes None recorded. Medical Equipment None Reported. Allergies No known drug allergies Medications Name Sig Start Date Stop Date Status Note LastModified by Organization Details LastModified Time acetaminoph en 325 mg tablet 11/02 completed Not Available Not Available Not Available nicotine 14 mg/24 hr daily transdermal patch active Not Available Not Available Not Available sulfamethox azole 400 mg-trimetho prim 80 mg tablet TAKE 2 TABLETS BY MOUTH TWICE DAILY FOR 10 DAYS active Not Available Not Available No t Available doxepin 25 mg capsule 09/21 completed Not Available Not Available Not Available ketotifen 0.025 % (0.035 %) eye drops active Not Available Not Available No t Available ondansetron HCl 8 mg tablet active Not Available Not Available Not Available clonazepam 0.5 mg tablet active Not Available Not Available Not Available clonazepam 1 mg tablet TAKE ONE TABLET BY MOUTH THREE TIMES A DAY NEEDED active Not Available Not Available No t Available penicillin V potassium 500 mg tablet 11/02 completed Not Available Not Available Not Available prochlorper azine maleate 10 mg tablet active Not Available Not Available No t Available sulfamethox azole 800 mg-trimetho prim 160 mg tablet TAKE ONE TABLET BY MOUTH TWICE A DAY FOR 3 DAYS active Not Available Not Available No t Available vancomycin 125 mg capsule TAKE 1 CAPSULE BY MOUTH EVERY 6 HOURS FOR 10 DAYS 11/02 completed Not Available Not Available Not Available cefadroxil 500 mg capsule 09/21 completed Not Available Not Available Not Available famotidine 20 mg tablet active Not Available Not Available Not Available amitriptyli ne 25 mg tablet 11/02 completed Not Available Not Available Not Available lorazepam 0.5 mg tablet 09/21 completed Not Available Not Available Not Available Concerta 54 mg tablet,exte nded release TAKE ONE TABLET BY MOUTH EVERY MORNING active Not Available Not Available No t Available cephalexin 500 mg capsule active Not Available Not Available Not Available erythromyci n 5 mg/gram (0.5 %) eye ointment 09/21 completed Not Available Not Available Not Available dexamethaso ne 4 mg tablet active Not Available Not Available Not Available ibuprofen 400 mg tablet 09/21 completed Not Available Not Available Not Available nicotine 21 mg/24 hr daily transdermal patch active Not Available Not Available Not Available gabapentin 300 mg capsule TAKE ONE CAPSULE BY MOUTH THREE TIMES A DAY active Not Available Not Available No t Available omeprazole 20 mg capsule,del ayed release TAKE 1 CAPSULE BY MOUTH EVERY DAY active Not Available Not Available No t Available zolpidem 5 mg tablet TAKE ONE TABLET BY MOUTH EVERY DAY active Not Available Not Available No t Available mirtazapine 15 mg tablet TAKE 1 TABLET BY MOUTH EVERYDAY AT BEDTIME active Not Available Not Available No t Available lorazepam 1 mg tablet TAKE 1 TABLET BY MOUTH THREE TIMES A DAY NEEDED DIRECTED active Not Available Not Available No t Available ibuprofen 600 mg tablet active Not Available Not Available Not Available fluocinonid e 0.05 % topical solution APPLY 1 APPLICATI ON TOPICALLY DAILY FOR 30 DAYS. active Not Available Not Available No t Available levofloxaci n 500 mg tablet TAKE 1 TABLET BY MOUTH EVERY 24 HOURS FOR 10 DAYS active Not Available Not Available No t Available zolpidem 10 mg tablet TAKE ONE TABLET BY MOUTH AT BEDTIME active Not Available Not Available No t Available oxybutynin chloride 5 mg tablet TAKE ONE TABLET BY MOUTH THREE TIMES A DAY active Not Available Not Available No t Available fluocinonid e 0.05 % topical cream active Not Available Not Available Not Available fluoxetine 20 mg capsule TAKE 1 CAPSULE BY MOUTH EVERY DAY IN THE MORNING FOR 30 DAYS active Not Available Not Available No t Available tamoxifen 20 mg tablet TAKE ONE TABLET BY MOUTH EVERY DAY DO NOT START UNTIL DECEMBER 02 active Not Available Not Available No t Available methylpheni date ER 36 mg tablet,exte nded release 24 hr 09/21 completed Not Available Not Available Not Available amoxicillin 875 mg-potassiu m clavulanate 125 mg tablet active Not Available Not Available Not Available oxycodone 5 mg tablet active Not Available Not Available No t Available Concerta 27 mg tablet,exte nded release 09/21 completed Not Available Not Available Not Available nitrofurant oin monohydrate /macrocryst als 100 mg capsule active Not Available Not Available Not Available Suboxone 8 mg-[address] TWO FILMS UNDER THE TONGUE EVERY DAY active Not Available Not Available No t Available Suboxone 2 mg-0.[address] 2 films every day by sublingua l route. 11/02 completed Not Available Not Available Not Available Suboxone 4 mg-[address] 1 film every day by sublingua l route. 09/21 completed Not Available Not Available Not Available Sublocade 300 mg/1.5 mL solution,ex tended release subcutaneou s syringe Inject 1.5 mL every month by subcutane ous route. 09/07 completed Not Available Not Available Not Available Sublocade 100 mg/0.5 mL solution,ex tended release subcutaneou s syringe Inject 0.5 mL every month by subcutane ous route. 09/07 completed Not Available Not Available Not Available Udenyca 6 mg/0.6 mL subcutaneou s syringe active Not Available Not Available No t Available Vitals Date Recorded Heart rate Oxygen saturation Oxygen saturation in Arterial blood by Pulse oximetry Body temperature Provider Name and Address Organization Details Last Updated DateTime 03/25/2021 92 /min 97 % 97 % 98.1 [degF] [employer], 16:56:38 Date Recorded Body temperature Oxygen saturation Oxygen saturation in Arterial blood by Pulse oximetry Heart rate Provider Name and Address Organization Details Last Updated DateTime 04/26/2021 97.7 [degF] 98 % 98 % 96 /min Ivon Nirmal N(i)², 16:47:37 Date Recorded Heart rate Oxygen saturation Oxygen saturation in Arterial blood by Pulse oximetry Body temperature Provider Name and Address Organization Details Last Updated DateTime 05/24/2021 94 /min 98 % 98 % 98.2 [degF] Graciel[employer], 16:29:13 Date Recorded Heart rate Oxygen saturation Oxygen saturation in Arterial blood by Pulse oximetry Body temperature Provider Name and Address Organization Details Last Updated DateTime 06/21/2021 98 /min 98 % 98 % 97.9 [degF] [employer], 16:38:23 Date Recorded Body temperature Oxygen saturation Oxygen saturation in Arterial blood by Pulse oximetry Heart rate Provider Name and Address Organization Details Last Updated DateTime 07/19/2021 97.8 [degF] 98 % 98 % 86 /min [employer], 16:21:31 Social History Question Answer Notes LastModified by Organizat ion Details LastModified Time Tobacco Smoking Status Current Every Day Smoker France Rubio MD [address] [place], [address], [facility], 08/20/2019 14:40:24 *Food Adequate Information no t available 01/28/2021 *Employment Employed [email or web address] Information n ot available 01/28/2021 *Job Training/Educa tion/Literacy Not Needed [email or web address] Information not available 01/28/2021 *Legal Status No Legal Issues [email or web address] Information not available 01/28/2021 *Custody Of Dependent Children Full Custody [email or web address] Information not available 01/28/2021 *Childcare Needed No [email or web address] Information not available 01/28/2021 *Concern For Domestic Violence No Information not available 01/28/2021 *Primary Care Provider Yes [facility] Information not available 01/28/2021 *Social Support Network Has Stable Support System [email or web address] Information not available 01/28/2021 *Transportatio n Issues No [email or web address] Information not available 01/28/2021 *Housing Stable - Safe [email or web address] Information not available 01/28/2021 *[place] [facility] [place] [email or web address] Information not available 01/28/2021 *Legal Assistance Not Required [email or web address] Information not available 01/28/2021 How Much Tobacco Do You Smoke? 0.25 PPD [email or web address] Information not available 08/20/2019 Sex: Unknown Functional Status None recorded. Mental Status None recorded. Family History Nothing Reported. Medical History Condition Response Anxiety Disorder Y Hepatitis Y Opioid Dependence Y Gynecological HistoryNo gynecological history recorded. Obstetrics History GPAL:G 0 P 0 0 0 0 Past Encounters Encounter ID Performer Location Encounter Start Date Encounter Closed Date Diagnosis/Indication Diagnosis SNOMED-CT Code Diagnosis ICD10 Code Diagnosis Note [id number] MD Flaquita [place] [address] [facility] [place] [address] 08/20/2019 13:28:38 08/20/2019 14:58:19 Opioid dependence 52194530 F11.20 [id number] MD Flaquita [place] [address] [facility] [place] [address] 08/27/2019 13:28:12 08/27/2019 16:08:53 Opioid dependence 49159209 F11.20 [id number] Julia Souza, CRC [place]hav[facility] oral[place] [address] [facility] [place] [address] 09/03/2019 13:30:21 09/03/2019 15:56:31 [id number] France Rubio MD [place] [place] [address] [facility] [place] [address] 09/03/2019 14:42:39 09/03/2019 15:47:18 Opioid dependence 53014459 F11.20 [id number] Julia Souza, CRC [place]hav[facility] oral[facility] [address] [facility] [place] [address] 09/11/2019 13:36:57 09/11/2019 14:38:33 [id number] ARGELIA LEDBETTER NP [place] [address] [facility] [place] [address] 09/11/2019 14:35:13 09/11/2019 15:30:43 Opioid dependence 17010587 F11.20 [id number] France Rubio MD [facility] [address] [facility] [place] [address] 09/17/2019 13:31:49 09/17/2019 14:06:43 Opioid dependence 98887641 F11.20 [id number] Julia Souza, CRC FAN_Behavi oral[facility] [address] [facility] [place] [address] 10/02/2019 13:27:32 10/02/2019 14:27:53 [id number] ARGELIA LEDBETTER NP [place] [place] [address] [place] [address], [place] [address] 10/02/2019 14:26:44 10/02/2019 15:48:50 Opioid dependence 53142396 F11.20 [id number] ARGELIA LEDBETTER NP [place] [address] [place] [address], [place] [address] 10/16/2019 07:52:26 10/16/2019 09:16:01 Opioid dependence 48898326 F11.20 [id number] Julia Souza, CRC [facility]hav[facility] oral[facility] [address] [facility] [place] [address] 10/23/2019 13:52:26 10/23/2019 15:28:32 [id number] Julia Souza, CRC MA[facility]Behavi oral[facility] [address] [facility] [place] [address] 10/29/2019 14:19:16 10/29/2019 14:59:04 [id number] ARGELIA LEDBETTER NP [place] [address] [facility] [place] [address] 10/30/2019 09:10:56 10/30/2019 13:57:09 Opioid dependence 37154360 F11.20 Alcohol dependence 54115 003 F10.20 [id number] Julia Souza, CRC [place]havi oral[facility] [address] [facility] [place] [address] 11/06/2019 15:03:31 11/06/2019 15:56:45 [id number] ADALBERTO CRAWFORDMedica l[facility] [address] [facility] [place] [address] 11/14/2019 08:48:11 11/14/2019 09:43:38 Opioid dependence 87313564 F11.20 Alcohol dependence 20638 003 F10.20 [id number] Sofia Cid NP [facility] [address] [facility] [place] [address] 11/20/2019 09:45:37 11/20/2019 11:01:33 [id number] France Rubio MD [place] [address] [facility] [place] [address] 12/01/2019 15:37:03 12/01/2019 16:32:31 Opioid dependence 92683738 F11.20 [id number] Julia Souza, CRC MA[facility]Behavi oral[facility] [address] [facility] [place] [address] 12/10/2019 09:35:46 12/10/2019 13:29:11 [id number] Sofia Cid NP [place]hav[facility] oral[facility] [address] [facility], [place] [address] 12/18/2019 10:10:19 12/18/2019 11:02:59 [id number] Julia Souza, BRO MA_Behavi oral_Spri [facility] 50 [facility] [place] [address] 12/18/2019 10:33:03 12/18/2019 11:05:49 [id number] JORDI CAMACHO NP MA_Medica l_[facility] 50 [facility] [place] [address] 12/19/2019 09:09:23 12/19/2019 09:37:06 Opioid dependence 86570800 F11.20 [id number] France Rubio MD MA_Medica l[address] [place] [address] 12/31/2019 08:48:51 12/31/2019 09:33:05 Opioid dependence 46629057 F11.20 [id number] Julia Souza, CRC MA_Behavi oral_Spri [address] [place] [address] 01/01/2020 10:38:37 01/01/2020 11:31:49 [id number] Sofia Cid NP MA_Behavi oral_Spri [address] [place] [address] 01/15/2020 10:24:57 01/15/2020 11:31:43 [id number] ARGELIA LEDBETTER NP MA_Medica l_[address] [place] [address] 01/28/2020 13:34:32 01/28/2020 14:23:15 Opioid dependence 73269984 F11.20 [id number] Julia Souza, BRO MA_Behavi oral_Spri [address] [place] [address] 02/04/2020 15:06:59 02/04/2020 15:52:56 [id number] Sofia Cid NP MA_Behavi oral_Spri [address] [place] [address] 02/10/2020 14:46:17 02/10/2020 15:14:18 [id number] Julia Mangieri, CRC [facility] 50 [facility] [place] [address] 02/20/2020 15:06:27 02/20/2020 16:38:51 [id number] France Rubio MD MA_Medica [facility] 50 [facility] [place] [address] 02/25/2020 13:35:17 02/25/2020 14:44:33 Opioid dependence 67888234 F11.20 [id number] Sofia Cid NP MA_Behavi oral_Spri [address] [place] [address] 03/09/2020 14:28:24 03/09/2020 15:07:04 [id number] Julia Souza, CRC MA_Behavi oral_Spri [address] [place] [address] 03/19/2020 14:01:47 03/19/2020 16:08:55 [id number] JORDI CAMACHO NP MA_Medica [address] [place] [address] 03/26/2020 13:29:38 03/26/2020 14:58:22 Opioid dependence 93381458 F11.20 Fatigue 65072680 R53.83 Inflammato ry disease of liver 737562531 K75.9 Viral screening NOS 1711 82111 Z11.59 Attacks of weakness 2482 07839 R53.1 Anxiety 20012698 F41.9 [id number] BRO Garnett MA_Behavi oral_Spri [address] [place] [address] 04/02/2020 13:03:02 04/02/2020 13:49:05 [id number] Sofia Cid NP MA_Behavi oral_Spri [address] [place] [address] 04/06/2020 13:58:22 04/06/2020 15:17:38 [id number] Julia Souza CRC MA_Behavi oral_Spri [address] [place] [address] 04/16/2020 15:45:23 04/16/2020 16:33:04 [id number] JORDI CAMACHO NP [facility] [address] [facility] [place] [address] 04/27/2020 13:28:37 04/27/2020 15:41:49 Opioid dependence 12872427 F11.20 [id number] Sofia Cid, SALES SERVICE REPRESENTATIVE MA_Behavi oral[facility] [address] [facility] [place] [address] 05/11/2020 13:42:39 05/11/2020 16:47:57 [id number] Julia Suoza, CRC MA_Behavi oral[facility] [address] [facility] [place] [address] 05/14/2020 16:21:48 05/16/2020 19:27:18 [id number] Julia Souza, CRC MA_Behavi oral[facility] 50 [facility] [place] [address] 05/14/2020 16:46:37 05/16/2020 19:27:46 [id number] ARGELIA LEDBETTER NP [facility] [address] [facility] [place] [address] 05/26/2020 13:36:08 05/26/2020 14:43:16 Opioid dependence 07980485 F11.20 [id number] Julia Souza, CRC [facility] 50 [facility] [place] [address] 05/28/2020 15:47:08 05/28/2020 16:33:49 [id number] Sofia Cid SALES SERVICE REPRESENTATIVE MA[facility]Behavi oral_[place] [address] [facility] [place] [address] 06/01/2020 16:42:05 06/01/2020 17:02:09 [id number] Julia Souza, CRC MA[facility]Behavi oral[facility] [address] [facility] [place] [address] 06/04/2020 15:31:23 06/04/2020 17:06:10 [id number] Julia Souza, CRC MA[facility]Behavi oral[facility] [address] [facility] [place] [address] 06/24/2020 13:46:18 06/25/2020 10:52:53 [id number] Sofia Cid NP [facility] 50 [facility] [place] [address] 06/29/2020 16:03:27 06/29/2020 16:59:45 [id number] ADALBERTO [facility]RAWFORDMedica l[facility] [address] [facility] [place] [address] 07/13/2020 08:54:43 07/13/2020 11:30:37 Opioid dependence 75203393 F11.20 Malignant tumor of breast 474689820 C50.112 [id number] Sofia Cid NP MA_Behavi oral_Spri [address] [place] [address] 07/26/2020 08:58:00 07/26/2020 11:54:[id number] [facility] [address] [place] [address] 08/10/2020 09:13:41 08/10/2020 11:55:16 Opioid dependence 91429127 F11.20 Alcohol dependence 17942 003 F10.20 Malignant tumor of breast 162894315 C50.112 [id number] Sofia Cid NP MA_Behavi oral_Spri [address] [place] [address] 08/24/2020 08:35:48 08/24/2020 09:53:53 [id number] ADALBERTO NORRISMedica _[facility] [address] [place] [address] 09/07/2020 13:55:30 09/07/2020 16:56:42 Opioid dependence 21807991 F11.20 Stable- UDS neg greater than one yr [id number] BRO Garnett MA_Behavi oral_Spri [address] [address] 09/10/2020 15:28:34 09/10/2020 16:27:12 [id number] Sofia Cid NP MA_Behavi oral_Psyc hMed [address] [place] [address] 09/16/2020 08:55:23 09/16/2020 16:04:08 [id number] BRO Garnett [facility] [place] [address] 10/01/2020 10:01:15 10/04/2020 20:26:50 [id number] JORDI CAMACHO NP [place] [address] [facility] [place] [address] 10/05/2020 09:18:59 10/05/2020 10:35:45 Opioid dependence 07930005 F11.20 STAPLE Drug withdrawal 75453943 5 F19.939 UNSTABLE [id number] Reanna Cazares NP MA_Behavi oral_Spri [address] [place] [address] 10/13/2020 09:51:12 10/13/2020 11:05:44 [id number] ARGELIA LEDBETTER NP [facility]Medica [facility]_[place] [address] [place] [address] 11/02/2020 09:29:03 11/02/2020 10:24:40 Opioid dependence 04886037 F11.20 Stable- UDS neg greater than one yr [id number] Reanna Cazares NP MA_Behavi oral_Spri [address] [place] [address] 11/09/2020 09:52:07 11/09/2020 13:51:07 [id number] ARGELIA LEDBETTER NP [facility]ica [facility] [address] [place] [address] 12/02/2020 09:30:37 12/02/2020 10:14:02 Opioid dependence 76924135 F11.20 Stable- UDS neg greater than one yr [id number] Reanna Cazares NP MA_Behavi oral_Psyc hMed [address] [place] [address], [place] [address] 12/08/2020 14:32:35 12/13/2020 12:42:47 [id number] ARGELIA LEDBETTER NP [place] [address] [place] [address] 12/31/2020 09:53:42 12/31/2020 11:23:54 Opioid dependence 53069798 F11.20 Stable- UDS neg greater than one yr [id number] Reanna Cazares, SALES SERVICE REPRESENTATIVE MA_Behavi oral_Psyc hMed 50 [facility] [place] [address] 01/05/2021 13:55:39 01/05/2021 15:22:46 [id number] JORDI CAMACHO NP [facility] [address] [facility] [place] [address] 01/28/2021 13:33:30 01/28/2021 15:36:25 Opioid dependence 71151275 F11.20 STABLE [id number] Reanna Cazares SALES SERVICE REPRESENTATIVE MA_Behavi oral_Spri [address] [place] [address] 02/02/2021 13:57:06 02/06/2021 18:07:28 [id number] Reanna Cazares NP MA_Behavi oral_Spri [address] [place] [address] 02/23/2021 09:23:12 02/23/2021 12:34:30 [id number] ZAY Galindo MA_Medica l_[place] [address] [place] [address] 02/24/2021 08:50:42 02/24/2021 09:47:12 Opioid dependence 55858813 F11.20 STABLE [id number] JORDI CAMACHO NP [facility] 50 [facility] [place] [address] 03/25/2021 16:51:16 03/29/2021 09:55:14 Opioid dependence 27177574 F11.20 STABLE [id number] Reanna Cazares SALES SERVICE REPRESENTATIVE MA_Behavi oral_Spri [address] [place] [address] 04/06/2021 16:40:43 04/08/2021 16:18:25 [id number] JORDI CAMACHO NP MA_Medica l_[place] [address] [place] [address] 04/26/2021 16:38:16 04/27/2021 16:19:37 Opioid dependence 59448998 F11.20 STABLE [id number] JORDI CAMACHO, ADALBERTO [facility] [place] [address] 05/24/2021 16:24:41 05/24/2021 17:08:34 Opioid dependence 12741394 F11.20 STABLE [id number] JORDI CAMACHO NP [facility] [place] [address] 06/21/2021 16:30:28 06/22/2021 09:41:42 Opioid dependence 94418806 F11.20 STABLE [id number] Keegan Reid NP [facility] [place] [address] 07/19/2021 16:16:34 07/19/2021 16:58:55 Opioid dependence 40634314 F11.20 Health Concerns Section Related Observation LastModified by Organization Detai ls LastModified Time None Recorded Concern Status LastModified by Organization Details LastModified Time None Recorded Advance Directives Directive None Recorded Payers Encounter Date Sequence Insurance Name Policy Number Policy Bland Covered Member ID Bland Member ID Guarantor Name 03/25/2021 1 [facility] ([facility] [place] ADRIANAO Yana Butts [employer] [id number] Yana Pouliot 04/26/2021 1 [facility] ([facility] [place] BOSTSAB[place]O Yana E [employer] [id number] Yana Pouliot 05/24/2021 1 [facility] ([place]) [place] Yana E P[employer]ot [id number] Yana Pouliot 06/21/2021 1 [facility] ([facility] [place] Yana E [employer] [id number] Yana Pouliot 07/19/2021 1 [facility] ([facility] [place] Yana E P[employer] [id number] Yana [employer] Notes Date Note Type Note Provider Name and Address Organization Details Recorded Time 03/25/2021 text/html The patient reports {{doing better doing well* struggling}} since last visit and {{denies* reports}} slip or relapse. MAT HPIThey {{deny* report}} cravings for opiates and {{deny* report}} opiates use since their last visit. They {{deny* report}} cravings for other substances and {{deny* report}} other substance use since their last visit. Triggers {{are* are not}} identified and any alleviating factors to identified triggers are discussed. Withdrawal symptoms {{are are not*}} present. MAT Administration and Program AdherenceThe patient {{is* is not}} compliant with prescribed buprenorphine dose and {{can* can not}} describe proper medication administration and technique. The patient {{denies* reports}} side effects from the medication. The patient {{has* has not}} attended counseling since their last MAT visit and {{is* is not}} in program compliance. There {{are* are not}} other support systems in place for this patient. There {{is is no*}} concern for diversion. JORDI CAMACHO NP [address] [place], [address], [facility], 03/27/2021 11:38:11 04/26/2021 text/html The patient reports {{doing better doing well* struggling}} since last visit and {{denies* reports}} slip or relapse. MAT HPIThey {{deny* report}} cravings for opiates and {{deny* report}} opiates use since their last visit. They {{deny* report}} cravings for other substances and {{deny* report}} other substance use since their last visit. Triggers {{are* are not}} identified and any alleviating factors to identified triggers are discussed. Withdrawal symptoms {{are are not*}} present. MAT Administration and Program AdherenceThe patient {{is* is not}} compliant with prescribed buprenorphine dose and {{can* can not}} describe proper medication administration and technique. The patient {{denies* reports}} side effects from the medication. The patient {{has* has not}} attended counseling since their last MAT visit and {{is* is not}} in program compliance. There {{are* are not}} other support systems in place for this patient. There {{is is no*}} concern for diversion. JORDI CAMACHO NP [address] [place], [address], [facility], 04/27/2021 08:36:50 05/24/2021 text/html The patient reports {{doing better doing well* struggling}} since last visit and {{denies* reports}} slip or relapse. MAT HPIThey {{deny* report}} cravings for opiates and {{deny* report}} opiates use since their last visit. They {{deny* report}} cravings for other substances and {{deny* report}} other substance use since their last visit. Triggers {{are* are not}} identified and any alleviating factors to identified triggers are discussed. Withdrawal symptoms {{are are not*}} present. MAT Administration and Program AdherenceThe patient {{is* is not}} compliant with prescribed buprenorphine dose and {{can* can not}} describe proper medication administration and technique. The patient {{denies* reports}} side effects from the medication. The patient {{has has not*}} attended counseling since their last MAT visit and {{is* is not}} in program compliance. There {{are* are not}} other support systems in place for this patient. There {{is is no*}} concern for diversion. JORDI CAMACHO NP [address] [place], [address], [facility], 05/26/2021 07:57:44 06/21/2021 text/html The patient reports {{doing better doing well* struggling}} since last visit and {{denies* reports}} slip or relapse. MAT HPIThey {{deny* report}} cravings for opiates and {{deny* report}} opiates use since their last visit. They {{deny* report}} cravings for other substances and {{deny* report}} other substance use since their last visit. Triggers {{are* are not}} identified and any alleviating factors to identified triggers are discussed. Withdrawal symptoms {{are are not*}} present. MAT Administration and Program AdherenceThe patient {{is* is not}} compliant with prescribed buprenorphine dose and {{can* can not}} describe proper medication administration and technique. The patient {{denies* reports}} side effects from the medication. The patient {{has has not*}} attended counseling since their last MAT visit and {{is* is not}} in program compliance. There {{are* are not}} other support systems in place for this patient. There {{is is no*}} concern for diversion. JORDI CAMACHO, ADALBERTO [address] [place], [address], [facility] [employer] [facility], 06/22/2021 08:16:27 07/19/2021 text/html The patient repo rts {{doing better doing well* struggling}} since last visit and {{denies* reports}} slip or relapse. MAT HPIThey {{deny* report}} cravings for opiates and {{deny* report}} opiates use since their last visit. They {{deny* report}} cravings for other substances and {{deny* report}} other substance use since their last visit. Triggers {{are are not*}} identified and any alleviating factors to identified triggers are discussed. Withdrawal symptoms {{are are not*}} present. MAT Administration and Program AdherenceThe patient {{is* is not}} compliant with prescribed buprenorphine dose and {{can* can not}} describe proper medication administration and technique. The patient {{denies* reports}} side effects from the medication. There {{are* are not}} other support systems in place for this patient. There {{is is no*}} concern for diversion. Keegan Reid NP [address] [place], [address], [employer] [facility], 07/20/2021 12:24:30 OBGyn Episode No OBEpisode recorded.
--- OUTSIDE RECORDS SUMMARY | 2024-08-21 11:41 | XMS_ITS | Continuity of Care Document ---
Author Organization [facility] Address [address] [place] [address]- Care Team Providers Care Assistant Real Estate Manager Name Role Phone Dharmesh GLOVER, Avila Gonzales Primary Care Physician [place] [facility] [place]08[place]24 - 08/07/24 [facility] [address], [place] [address] Encounter Type: Triage Allergies, Adverse Reactions, Alerts Substance Criticality Severity Reaction Reaction Severity Status Seroquel hallucinations Activ e Problem List Condition Confirmation Course Effective Dates Status H ealth Status Informant Anxiety state NOS Confirmed Active ADD (attention deficit disorder) Confirmed Active Chronic hepatitis C Confirmed Active Depression Confirmed Active Drug Rehabilitation Confirmed Active GERD (gastroesophageal reflux disease) Confirmed Active MIGUEL (generalized anxiety disorder) Confirmed Active 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 Confirmed Active Migraine Confirmed Active Polysubstance abuse Confirmed Active 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 Confirmed Active Social History Social History Type Response Smoking Status Former smoker, quit more than 30 days ago; Other: Last cigarette was approx 1 month before surgery; entered on: 08/03/20 Sex Sex Representation Female (finding) Implantable Device List Procedure Provider Procedure Date Device Type Site Mastectomy Nipple Sparing Unilateral and Hitesh Barrera III, MD 06/18/20 Unknown Breast Left Device Identifier Serial Number Lot or Batch Number Manufacturing Date Expiration Date Distinct Identification Code MRI Safety Implantable Status Assigning Authority Unknown [id number] Unknown 10/19/23 Unknown Unknown Active Unknown Procedure Provider Procedure Date Device Type Site Reconstruction Breast with Insertion Tis Hitesh Barrera III, MD 06/18/20 Unknown Breast Left Device Identifier Serial Number Lot or Batch Number Manufacturing Date Expiration Date Distinct Identification Code MRI Safety Implantable Status Assigning Authority Unknown [id number] Unknown 03/22/22 Unknown Unknown Active Unknown Patient Care team information Care Team Personnel Name: Debby Roa Position: S Onco RN Member Role: Primary Care Nurse Name: Avila Barroso NP Position: Reference Physician Member Role: PCP Address: [address] [place] [address] Telecom: Name: Radha Meyers RN Position: S RN Member Role: Primary Care Nurse Name: Marilynn Leong RN Position: S RN Member Role: Primary Care Nurse Name: Jones Knutson RN Position: S RN Member Role: Primary Care Nurse Name: France Obrien RN Position: S Onco RN Member Role: Primary Care Nurse Name: Pao Devine RN Position: [facility] Onco RN Member Role: Primary Care Nurse Name: Machelle Shipman Position: S Onco RN Member Role: Primary Care Nurse Name: Rosina Tesfaye RN Position: [facility] SN RN Member Role: Primary Care Nurse Name: Fatoumata Farrell RN Position: S RN Member Role: Primary Care Nurse Name: Mira Pickett RN Position: S RN Member Role: Primary Care Nurse Name: Josefa Arango RN Position: [facility] Onco RN Member Role: Primary Care Nurse Name: Emmanuelle Moya RN Position: [facility] Onco RN Member Role: Primary Care Nurse Name: Keeley Carver RN Position: S Onco RN Member Role: Primary Care Nurse Name: Taylor Ruffin RN Position: S RN Member Role: Primary Care Nurse Name: Karolyn Leigh RN Position: S RN Member Role: Primary Care Nurse Care Team Related Persons Name: BUSTER SARABIA Name: YANIV ALAS Insurance Providers Guarantor name: DHAVAL ALAS Health Plan Information #: 1 Payer: [employer] Member Number: NA Policy Number: NA Group Number: NA
--- OUTSIDE RECORDS SUMMARY | 2024-08-21 11:41 | XMS_ITS | Continuity of Care Document ---
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(Discharge Diagnosis) - 02/06/24 Discharge Disposition: A-D/C Home Attending Physician: Nelson Ferrari DO Admitting Physician: Nelson Ferrair DO Referring Physician: Avila Barroso NP Encounter Type: Disch Recurring OP Allergies, Adverse Reactions, Alerts Substance Criticality Severity [...] breast metastatic to multiple sites Confirmed Active Diagnosis Diagnosis Type Effective Dates Health Status Clinical Service Informant 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 Discharge Diagnosis 02/06/24 Vital Signs Most recent to oldest [Reference Range]: 1 2 3 Height 170 cm (08/13/24 9:20 AM) 170 cm (08/13/24 9:18 AM) 170 cm (07/24/24 11:27 AM) Weight 57 kg (07/24/24 11:27 AM) 57.0 kg (07/24/24 9:45 AM) 59.5 kg (07/02/24 8:54 AM) Oxygen Saturation [94-100 %] 100 % (08/13/24 9:20 AM) 98 % (07/24/24 9:45 AM) 100 % (07/02/24 8:54 AM) Pulse Rate [55-90 bpm] 90 bpm (08/13/24 9:20 AM) 74 bpm (07/24/24 9:45 AM) 87 bpm (07/02/24 8:54 AM) Body Mass Index [18.5-24.99 kg/m2] 19.72 kg/m2 (07/24/24 9:45 AM) 20.59 kg/m2 (07/02/24 8:54 AM) 21.59 kg/m2 (05/22/24 8:32 AM) Blood Pressure [90-138/55-84 mm Hg] 107/70mm Hg (08/13/24 9:20 AM) 92/67mm Hg (07/24/24 9:45 AM) 109/80mm Hg (07/02/24 8:54 AM) Respiratory Rate [16-30 br/min] 16 br/min (01/14/24 12:00 PM) Temperature [96.8-100.4 DegF] 98.0 DegF (08/13/24 9:20 AM) 98.1 DegF (07/24/24 9:45 AM) 98.2 DegF (07/02/24 8:54 AM) Mode of Delivery (Oxygen) Room air (08/13/24 9:20 AM) Room air (07/02/24 8:54 AM) Room air (06/11/24 9:51 AM) Blood pressure sites Arm, right (08/13/24 9:20 AM) Arm, right (07/24/24 9:45 AM) Arm, right (07/02/24 8:54 AM) Temperature Route Temporal (08/13/24 9:20 AM) Temporal (08/13/24 9:18 AM) Temporal (07/24/24 9:45 AM) Dry Weight 57.0 kg (07/24/24 9:45 AM) 59.5 kg (07/02/24 8:54 AM) 62.4 kg (05/22/24 8:32 AM) Weight Obtained Via Standing scale (07/24/24 9:45 AM) Standing scale (07/02/24 8:54 AM) Standing scale (05/22/24 8:32 AM) Dry Weight Obtained Via Standing scale (07/02/24 8:54 AM) Standing scale (05/22/24 8:32 AM) Standing scale (02/06/24 1:22 PM) Social History Social History Type Response Smoking [...] MRI Safety Implantable Status Assigning Authority Unknown [id number] Unknown 10/19/23 Unknown Unknown Active Unknown Procedure Provider Procedure Date Device Type Site Reconstruction Breast with Insertion Tis Hitesh Barrera III, MD 06/18/20 Unknown Breast Left Device Identifier Serial Number Lot or Batch Number Manufacturing Date Expiration Date Distinct Identification Code MRI Safety Implantable Status Assigning Authority Unknown [id number] Unknown 03/22/22 Unknown Unknown Active Unknown Radiology * Event Display: [place] Nuclear Medicine, Non-[facility] Authored Date: Patient Care team information Care Team Personnel Name: Debby Roa Position: S Onco RN Member Role: Primary Care Nurse Name: Avila Barroso NP Position: Reference Physician Member Role: PCP Address: [address] [place] [address] Telecom: Name: Radha Meyers RN Position: S RN Member Role: Primary Care Nurse Name: Marilynn Leong RN Position: S RN Member Role: Primary Care Nurse Name: Jones Knutson RN Position: S RN Member Role: Primary Care Nurse Name: France Obrien RN Position: S Onco RN Member Role: Primary Care Nurse Name: Pao Devine RN Position: S Onco RN Member Role: Primary Care Nurse Name: Machelle Shipman Position: [facility] Onco RN Member Role: Primary Care Nurse Name: Rosina Tesfaye RN Position: [facility] SN RN Member Role: Primary Care Nurse Name: Fatoumata Farrell RN Position: [facility] RN Member Role: Primary Care Nurse Name: Mira Pickett RN Position: [facility] RN Member Role: Primary Care Nurse Name: Josefa Arango RN Position: [facility] Onco RN Member Role: Primary Care Nurse Name: Emmanuelle Moya RN Position: [facility] Onco RN Member Role: Primary Care Nurse Name: Keeley Carver RN Position: [facility] Onco RN Member Role: Primary Care Nurse Name: Taylor Ruffin RN Position: [facility] RN Member Role: Primary Care Nurse Name: Karolyn Leigh RN Position: [facility] RN Member Role: Primary Care Nurse Care Team Related Persons Name: BUSTER SARABIA Name: BISHOPYANIV Insurance Providers Guarantor name: DHAVAL MINChina [facility] Information #: 1 Payer: [employer] Member Number: [id number] Policy Number: NA Group Number: [facility] Health Plan Information #: 2 Payer: [employer] Member Number: [id number] Policy Number: NA Group Number: NA
== END 2024-08-21 10:04 | disposition home or self-care (01) ==
PROVIDERS: PCP Nurse Practitioner Family; Visit Provider Nurse Practitioner Family
DX: Z00.00 Encounter for general adult medical examination without abnormal findings (principal); C50.912 Malignant neoplasm of unspecified site of left female breast; C77.0 Secondary and unspecified malignant neoplasm of lymph nodes of head, face and neck; Z11.4 Encounter for screening for human immunodeficiency virus [HIV]; H61.23 Impacted cerumen, bilateral; M06.9 Rheumatoid arthritis, unspecified

== ENCOUNTER 2024-08-21 08:50 | Outpatient (REF) | payer OTHER, SELFPAY ==
[2024-08-21 13:03] LABS: MANUAL DIFF FLAG NO
[2024-08-21 13:09] LABS: Basophils Percent Auto 0.9 % (0-2); Eosinophils Absolute Auto 0.2 X10*3/uL (0.0-0.4); Eosinophils Percent Auto 4.7 % (0-4); Hematocrit 36.1 % (37.0-47.0); Hemoglobin 12.1 g/dl (12.0-16.0); Imm Gran Abs Auto 0.01 X10*3/uL (0.00-0.03); Imm Gran Pct Auto 0.2 % (0.0-0.4); Lymphocytes Absolute Auto 1.1 X10*3/uL (1.2-4.9); Lymphocytes Percent Auto 25.3 % (20-40); Mean Corpuscular HGB Conc 33.5 g/dl (31.0-35.0); Mean Corpuscular Hemoglobin 30.3 pg (27.0-33.0); Mean Corpuscular Volume 90.5 fL (80.0-98.0); Mean Platelet Volume 9.1 fL (9.4-12.3); Monocytes Absolute Auto 0.4 X10*3/uL (0.1-1.2); Monocytes Percent Auto 10.2 % (2-11); Neutrophils Absolute Auto 2.5 x10*3/uL (2.0-8.3); Neutrophils Percent Auto 58.7 % (45-73); Platelet Count 230 X10*3/uL (160-400); Red Blood Count 3.99 X10*6/uL (4.20-5.50); Red Cell Distribution Width 12.3 % (11.0-16.0); White Blood Count 4.3 X10*3/uL (4.8-10.8)
--- OUTSIDE RECORDS SUMMARY | 2024-08-21 13:16 | XMS_ITS | Data Portability ---
Author Organization [facility] [employer], , [facility] Address [address] [place] [address] Assessment Encounter Date Assessment Date Assessment LastModified by Organization Details LastModified Time 03/25/2021 03/25/2021 Telemedicine Information: This telmed (audio + visual) appointment provided a MAT prescription. Time Start: 1006; Time End:[id number] Provider Location: office; Patient Location: office Telemedicine [...] MONTHS---1X Q 3 WEEKS NEW JOB; AT [employer]---STRESSFUL R/T JOB REQUIRMTS RUSHED TO MAKE MAT [...] regarding any risk of combining sedating agents. 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 [...] regarding any risk of combining sedating agents. [email or web address] Not available 04/27/2021 08:36:41 05/24/2021 05/24/2021 Telemedicine [...] QUARANTININES 1.5 WEEKS AGO NEW JOB AT [facility]. D/T FATIGUE AND LIFTINGS---TRAANSF ERRED TO [...] regarding any risk of combining sedating agents. [email or web address] Not available 05/26/2021 07:57:28 06/21/2021 06/21/2021 Telemedicine [...] FRWD WITH BREAST RECONSTRUCTION NEW POSTION AT [employer] IS GOING WELL WITH LESS STRESS AND [...] regarding any risk of combining sedating agents. [email or web address] Not available 06/22/2021 08:16:08 07/19/2021 07/19/2021 Lab [...] recorded. Lab drug screen, urine 2020 021 [email or web address] [facility], [address] [place], [address], 18:06:38 drug screen, urine 2020 [facility], [address] [place], [address], 09:05:10 drug screen, urine 2020 021 [facility], [address] [place], [address], 09:27:04 drug screen, urine 2020 [facility], [address] [place], [address], 12:33:43 drug screen, urine 2020 [facility], [address] [place], [address], 10:12:15 Referral None recorded. Procedures None recorded. Surgeries None recorded. Imaging None recorded. Medication Orders Suboxone 8 mg-2 mg sublingual film 2020 [id number], [id number] [facility], [place], [address], 16:36:03 Patient TargetsNo targets recorded. Patient Instructions Encounter Date Encounter Id Patient Instructions Last Modified By Organization Details Last Modified Time 03/25/2021 [id number] As part of your individualized treatment plan [...] early recovery. Not available 03/25/2021 16:55:58 04/26/2021 [id number] As part of your individualized treatment plan and program requirement, you will need to bring your correct prescription bottle and all used and unused medication and counseling verification to each appointment; > Agree to participate in counseling and bring counseling verification to each appointment; > Agree to present for random visits; > Agree to not falsify your urine specimens. [email or web address] Not available 04/26/2021 16:42:30 Education provid ed [...] & Drop out prevention in early recovery. [email or web address] Not available 04/26/2021 16:42:30 05/24/2021 [id number] As part of your individualized treatment plan [...] early recovery. Not available 05/24/2021 16:28:08 06/21/2021 [id number] As part of your individualized treatment plan [...] early recovery. Not available 06/21/2021 16:36:29 07/19/2021 [id number] As part of your individualized treatment plan [...] 9 U/L 3-50 normal Not Available [facility] [address], [place], [address], 02/24/2021 17:55:16 02/25/20 21 02/24/2021 AST AST 14 U/L 10-30 normal Not Available [facility] [address], [place], [address], 02/24/2021 17:55:17 02/25/20 21 02/24/2021 ALT ALT 6 U/L 6-29 normal Not Available [facility] [address], [place], [address], 02/24/2021 17:55:17 02/25/20 21 02/24/2021 [facility]UPRE [facility]PH [facility] PT SCREE TREMAINE amphetamines NEGATI VE NG/mL 1,000 Kwadwo ortega by TAMARA MCMULLEN Not Available [place] [address] [place], [address], 02/25/2021 09:04:21 02/25/20 21 02/24/2021 BUPRE NORPH INE PT SCREE TREMAIEN benzodiazapi jero NEGATI VE NG/mL 200 Not Available [facility], [address], 02/25/2021 09:04:21 02/25/20 21 02/24/2021 BUPRE NORPH INE PT SCREE TREMAINE buprenorphin e POSITI VE NG/mL 5 Not Available [place] [address] [place], [address], 02/25/2021 09:04:21 02/25/20 21 02/24/2021 BUPRE NORPH INE PT SCREE TREMAINE cocaine metabolite NEGATI VE NG/mL 150 Not Available [facility] [address] [place], [address], 02/25/2021 09:04:21 02/25/20 21 02/24/2021 BUPRE NORPH INE PT SCREE TREMAINE opiates NEGATI VE NG/mL 300 Not Available [place] [address] [place], [address], 02/25/2021 09:04:21 02/25/20 21 02/24/2021 BUPRE [facility]PH INE PT SCREE TREMAINE oxycodone NEGATI VE NG/mL 300 Not Available [place] [address] [place], [address], 02/25/2021 09:04:21 02/25/20 21 02/24/2021 BUPRE [facility]PH INE PT SCREE TREMAINE fentanyl NEGATI VE NG/mL 2 Not Available [place] [address] [place], [address], 02/25/2021 09:04:21 02/25/20 21 02/24/2021 BUPRE [facility]PH INE PT SCREE TREMAINE ethyl alcohol NEGATI VE mg/dL 10 Not Available [place] [address] [place], [address], 02/25/2021 09:04:21 02/25/20 21 02/24/2021 BUPRE NORPH INE PT SCREE TREMAINE methadone metabolite NEGATI VE NG/mL 300 Not Available [place] [address] [place], [address], 02/25/2021 09:04:21 02/25/20 21 02/24/2021 BUPRE NORPH INE PT SCREE TREMAINE urine creatinine 85.2 mg/dL >20 Not Available [place] [address] [place], [address], 02/25/2021 09:04:21 02/25/20 21 02/24/2021 BUPRE NORPH INE PT SCREE TREMAINE urine pH 6.90 4.5-9. 0 Not Available [place] [address] [place], [address], 02/25/2021 09:04:21 02/25/20 21 02/24/2021 BUPRE NORPH INE PT SCREE TREMAINE specific gravity 1.007 1.003- 1.035 Not Available [place] [address] [place], [address], 02/25/2021 09:04:21 02/25/20 21 02/24/2021 PRESC RIBED DRUG CONFI RMATI ON [place] , BUPRE NORPH INE, QN, U buprenorphin e 735.7 NG/mL 20 Kwadwo ortega by TAMARA MCMULLEN Not Available [place] [address] [place], [address], 02/28/2021 11:51:54 02/25/20 21 02/24/2021 PRESC RIBED DRUG CONFI RMATI ON [place] , BUPRE NORPH INE, QN, U norbuprenorp julia 245.2 NG/mL 50 Not Available [place] [address] [place], [address], 02/28/2021 11:51:54 02/25/20 21 02/24/2021 PRESC RIBED DRUG CONFI RMATI ON [place] , BUPRE NORPH INE, QN, U alpha-hydrox yalprazolam NEGATI VE NG/mL 25 Not Available [facility] [address] [place], [address], 02/28/2021 11:51:54 02/25/20 21 02/24/2021 PRESC RIBED DRUG CONFI RMATI ON [place] , BUPRE NORPH INE, QN, U 7-aminoclona zepam 192.8 NG/mL 40 high Not Available [place] [address] [place], [address], 02/28/2021 11:51:54 02/25/20 21 02/24/2021 PRESC RIBED DRUG CONFI RMATI ON [place] , BUPRE NORPH INE, QN, U diazepam NEGATI VE NG/mL 50 Not Available [facility] [address] [place], [address], 02/28/2021 11:51:54 02/25/20 21 02/24/2021 PRESC RIBED DRUG CONFI RMATI ON [place] , BUPRE NORPH INE, QN, U lorazepam NEGATI VE NG/mL 50 Not Available [place] [address] [place], [address], 02/28/2021 11:51:54 02/25/20 21 02/24/2021 PRESC RIBED DRUG CONFI RMATI ON [place] , BUPRE NORPH INE, QN, U nordiazepam NEGATI VE NG/mL 50 Not Available [place] [address] [place], [address], 02/28/2021 11:51:54 02/25/20 21 02/24/2021 PRESC RIBED DRUG CONFI RMATI ON [place] , BUPRE NORPH INE, QN, U temazepam NEGATI VE NG/mL 50 Not Available [place] [address] [place], [address], 02/28/2021 11:51:54 02/25/20 21 02/24/2021 PRESC RIBED DRUG CONFI RMATI ON [place] , BUPRE NORPH INE, QN, U legend ABBREV IATION S LOW - Detec mary but unqua ntifi able OLR - Outsi de of linea r range ATR - Addit ional Testi ng Requi red Not Available [place] [address] [place], [address], 02/28/2021 11:51:54 02/25/20 21 02/24/2021 PRESC RIBED DRUG CONFI RMATI ON [place] , BUPRE NORPH INE, QN, U billing only ([id number]) BILLIN G ONLY Not Available [place] [address] [place], [address], 02/28/2021 11:51:54 02/25/20 21 02/24/2021 pregn bib test, urine HCG negati ve Not Available [facility] [address], [address], 02/24/2021 09:05:28 03/25/20 21 03/25/2021 BUPRE NORPH INE PT SCREE TREMAINE amphetamines NEGATI VE NG/mL 1,000 Elect berry dietz d by JORDI CAMACHO Not Available [place] [address] [place], [address], 03/30/2021 09:52:00 03/25/20 21 03/25/2021 BUPRE NORPH INE PT SCREE TREMAINE benzodiazapi jero NEGATI VE NG/mL 200 Not Available [place] [address] [place], [address], 03/30/2021 09:52:00 03/25/20 21 03/25/2021 BUPRE NORPH INE PT SCREE TREMAINE buprenorphin e POSITI VE NG/mL 5 Not Available [place] [address] [place], [address], 03/30/2021 09:52:00 03/25/20 21 03/25/2021 BUPRE NORPH INE PT SCREE TREMAINE cocaine metabolite NEGATI VE NG/mL 150 Not Available [place] [address] [place], [address], 03/30/2021 09:52:00 03/25/20 21 03/25/2021 BUPRE NORPH INE PT SCREE RTEMAINE opiates NEGATI VE NG/mL 300 Not Available [place] [address] [place], [address], 03/30/2021 09:52:00 03/25/20 21 03/25/2021 BUPRE NORPH INE PT SCREE TREMAINE oxycodone NEGATI VE NG/mL 300 Not Available [place] [address] [place], [address], 03/30/2021 09:52:00 03/25/20 21 03/25/2021 BUPRE NORPH INE PT SCREE TREMAINE fentanyl NEGATI VE NG/mL 2 Not Available [facility], [address], 03/30/2021 09:52:00 03/25/20 21 03/25/2021 BUPRE NORPH INE PT SCREE TREMAINE ethyl alcohol NEGATI VE mg/dL 10 Not Available [facility], [address], 03/30/2021 09:52:00 03/25/20 21 03/25/2021 BUPRE NORPH INE PT SCREE TREMAINE methadone metabolite NEGATI VE NG/mL 300 Not Available [facility], [address], 03/30/2021 09:52:00 03/25/20 21 03/25/2021 BUPRE NORPH INE PT SCREE TREMAINE urine creatinine 219.4 mg/dL >20 Not Available [place] [address] [place], [address], 03/30/2021 09:52:00 03/25/20 21 03/25/2021 BUPRE NORPH INE PT SCREE TREMAINE urine pH 6.10 4.5-9. 0 Not Available [place] [address] [place], [address], 03/30/2021 09:52:00 03/25/2003/25/2021 BUPRE NORPH INE PT SCREE TREMAINE specific gravity 1.027 1.003- 1.035 Not Available [place] [address] [place], [address], 03/30/2021 09:52:00 03/25/2003/25/2021 PRESC RIBED DRUG CONFI RMATI ON [place] , BUPRE NORPH INE, QN, U buprenorphin e OLR(>2 000) NG/mL 20 high Elect berry dietz d by JORDI CAMACHO Not Available [place] [address] [place], [address], 03/31/2021 11:46:14 03/25/20 21 03/25/2021 PRESC RIBED DRUG CONFI RMATI ON [place] , BUPRE NORPH INE, QN, U norbuprenorp julia 1805.0 NG/mL 50 Not Available [place] [address] [place], [address], 03/31/2021 11:46:14 03/25/20 21 03/25/2021 PRESC RIBED DRUG CONFI RMATI ON [place] , BUPRE NORPH INE, QN, U alpha-hydrox yalprazolam NEGATI VE NG/mL 25 Not Available [facility], [address], 03/31/2021 11:46:14 03/25/20 21 03/25/2021 PRESC RIBED DRUG CONFI RMATI ON [place] , BUPRE NORPH INE, QN, U 7-aminoclona zepam 319.9 NG/mL 40 high Not Available [place] [address] [place], [address], 03/31/2021 11:46:14 03/25/20 21 03/25/2021 PRESC RIBED DRUG CONFI RMATI ON [place] , BUPRE NORPH INE, QN, U diazepam NEGATI VE NG/mL 50 Not Available [facility], [address], 03/31/2021 11:46:14 03/25/20 21 03/25/2021 PRESC RIBED DRUG CONFI RMATI ON [place] , BUPRE NORPH INE, QN, U lorazepam NEGATI VE NG/mL 50 Not Available [place] [address] [place], [address], 03/31/2021 11:46:14 03/25/20 21 03/25/2021 PRESC RIBED DRUG CONFI RMATI ON [place] , BUPRE NORPH INE, QN, U nordiazepam NEGATI VE NG/mL 50 Not Available [facility] [place], [address], 03/31/2021 11:46:14 03/25/20 21 03/25/2021 PRESC RIBED DRUG CONFI RMATI ON [place] , BUPRE NORPH INE, QN, U temazepam NEGATI VE NG/mL 50 Not Available [facility] [place], [address], 03/31/2021 11:46:14 03/25/20 21 03/25/2021 PRESC RIBED DRUG CONFI RMATI ON [place] , BUPRE NORPH INE, QN, U legend ABBREV IATION S LOW - Detec mary but unqua ntifi able OLR - Outsi de of linea r range ATR - Addit ional Testi ng Requi red Not Available [place] [address] [place], [address], 03/31/2021 11:46:14 03/25/20 21 03/25/2021 PRESC RIBED DRUG CONFI RMATI ON [place] , BUPRE NORPH INE, QN, U billing only ([id number]) BILLIN G ONLY Not Available [facility], [address], 03/31/2021 11:46:14 04/26/20 21 04/26/2021 BUPRE NORPH INE PT SCREE TRMEAINE amphetamines NEGATI VE NG/mL 1,000 Kwadwo ortega by JORDI CAMACHO Not Available [place] [address] [place], [address], 04/28/2021 09:05:09 04/26/20 21 04/26/2021 BUPRE NORPH INE PT SCREE TREMAINE benzodiazapi jero NEGATI VE NG/mL 200 Not Available [place] [address] [place], [address], 04/28/2021 09:05:09 04/26/20 21 04/26/2021 BUPRE NORPH INE PT SCREE TREMAINE buprenorphin e POSITI VE NG/mL 5 Not Available [place] [address] [place], [address], 04/28/2021 09:05:09 04/26/20 21 04/26/2021 BUPRE NORPH INE PT SCREE TREMAINE cocaine metabolite NEGATI VE NG/mL 150 Not Available [place] [address] [place], [address], 04/28/2021 09:05:09 04/26/20 21 04/26/2021 BUPRE NORPH INE PT SCREE TREMAINE opiates NEGATI VE NG/mL 300 Not Available [place] [address] [place], [address], 04/28/2021 09:05:09 04/26/20 21 04/26/2021 BUPRE NORPH INE PT SCREE TREMAINE oxycodone NEGATI VE NG/mL 300 Not Available [place] [address] [place], [address], 04/28/2021 09:05:09 04/26/20 21 04/26/2021 BUPRE NORPH INE PT SCREE TREMAINE fentanyl NEGATI VE NG/mL 2 Not Available [place] [address] [place], [address], 04/28/2021 09:05:09 04/26/20 21 04/26/2021 BUPRE NORPH INE PT SCREE TREMAINE ethyl alcohol NEGATI VE mg/dL 10 Not Available [place] [address] [place], [address], 04/28/2021 09:05:09 04/26/20 21 04/26/2021 BUPRE NORPH INE PT SCREE TREMAINE methadone metabolite NEGATI VE NG/mL 300 Not Available [place] [address] [place], [address], 04/28/2021 09:05:09 04/26/20 21 04/26/2021 BUPRE NORPH INE PT SCREE TREMAINE urine creatinine 111.6 mg/dL >20 Not Available [place] [address] [place], [address], 04/28/2021 09:05:09 04/26/20 21 04/26/2021 BUPRE NORPH INE PT SCREE TREMAINE urine pH 6.00 4.5-9. 0 Not Available [place] [address] [place], [address], 04/28/2021 09:05:09 04/26/20 21 04/26/2021 BUPRE NORPH INE PT SCREE TREMAINE specific gravity 1.013 1.003- 1.035 Not Available [place] [address] [address] [place], [address], 04/28/2021 09:05:09 04/26/20 21 04/26/2021 PRESC RIBED DRUG CONFI RMATI ON [place] , BUPRE NORPH INE, QN, U buprenorphin e 808.0 NG/mL 20 Elect berry ortega by JORDI CAMACHO Not Available [place] [address] [address] [place], [address], 05/03/2021 08:46:50 04/26/20 21 04/26/2021 PRESC RIBED DRUG CONFI RMATI ON [place] , BUPRE NORPH INE, QN, U norbuprenorp julia 624.2 NG/mL 50 Not Available [place] [address] [address] [place], [address], 05/03/2021 08:46:50 04/26/20 21 04/26/2021 PRESC RIBED DRUG CONFI RMATI ON [place] , BUPRE NORPH INE, QN, U alpha-hydrox yalprazolam NEGATI VE NG/mL 25 Not Available [place] [address] [place], [address], 05/03/2021 08:46:50 04/26/20 21 04/26/2021 PRESC RIBED DRUG CONFI RMATI ON [place] , BUPRE NORPH INE, QN, U 7-aminoclona zepam 616.7 NG/mL 40 high Not Available [place] [address] [place], [address], 05/03/2021 08:46:50 04/26/20 21 04/26/2021 PRESC RIBED DRUG CONFI RMATI ON [place] , BUPRE NORPH INE, QN, U diazepam NEGATI VE NG/mL 50 Not Available [place] [address] [place], [address], 05/03/2021 08:46:50 04/26/20 21 04/26/2021 PRESC RIBED DRUG CONFI RMATI ON [place] , BUPRE NORPH INE, QN, U lorazepam NEGATI VE NG/mL 50 Not Available [place] [address] [place], [address], 05/03/2021 08:46:50 04/26/20 21 04/26/2021 PRESC RIBED DRUG CONFI RMATI ON [place] , BUPRE NORPH INE, QN, U nordiazepam NEGATI VE NG/mL 50 Not Available [place] [address] [place], [address], 05/03/2021 08:46:50 04/26/20 21 04/26/2021 PRESC RIBED DRUG CONFI RMATI ON [place] , BUPRE NORPH INE, QN, U temazepam NEGATI VE NG/mL 50 Not Available [place] [address] [place], [address], 05/03/2021 08:46:50 04/26/20 21 04/26/2021 PRES RIBED DRUG CONFI RMATI ON [place] , BUPRE NORPH INE, QN, U legend ABBREV IATION S LOW - Detec mary but unqua ntifi able OLR - Outsi de of linea r range ATR - Addit ional Testi ng Requi red Not Available [place] [address] [place], [address], 05/03/2021 08:46:50 04/26/20 21 04/26/2021 [facility] RIBED DRUG CONFI RMATI ON [place] , BUPRE NORPH INE, QN, U billing only ([id number]) BILLIN G ONLY Not Available [facility], [address], 05/03/2021 08:46:50 05/24/20 21 05/24/2021 BUPRE NORPH INE PT SCREE TREMAINE amphetamines NEGATI VE NG/mL 1,000 Kwadwo ditez d by JORDI CAMACHO Not Available [place] [address] [place], [address], 05/26/2021 09:27:04 05/24/20 21 05/24/2021 BUPRE NORPH INE PT SCREE TREMAINE benzodiazapi jero POSITI VE NG/mL 200 abnormal Not Available [facility], [address], 05/26/2021 09:27:04 05/24/20 21 05/24/2021 BUPRE NORPH INE PT SCREE TREMAINE buprenorphin e POSITI VE NG/mL 5 Not Available [facility], [address], 05/26/2021 09:27:04 05/24/20 21 05/24/2021 BUPRE NORPH INE PT SCREE TREMAINE cocaine metabolite NEGATI VE NG/mL 150 Not Available [facility], [address], 05/26/2021 09:27:04 05/24/20 21 05/24/2021 BUPRE NORPH INE PT SCREE TREMAINE opiates NEGATI VE NG/mL 300 Not Available [place] [address] [place], [address], 05/26/2021 09:27:04 05/24/20 21 05/24/2021 BUPRE NORPH INE PT SCREE TREMAINE oxycodone NEGATI VE NG/mL 300 Not Available [place] [address] [place], [address], 05/26/2021 09:27:04 05/24/20 21 05/24/2021 BUPRE NORPH INE PT SCREE TREMAINE fentanyl NEGATI VE NG/mL 2 Not Available [place] [address] [place], [address], 05/26/2021 09:27:04 05/24/20 21 05/24/2021 BUPRE NORPH INE PT SCREE TREMAINE ethyl alcohol NEGATI VE mg/dL 10 Not Available [place] [address] [place], [address], 05/26/2021 09:27:04 05/24/20 21 05/24/2021 BUPRE NORPH INE PT SCREE TREMAINE methadone metabolite NEGATI VE NG/mL 300 Not Available [place] [address] [place], [address], 05/26/2021 09:27:04 05/24/20 21 05/24/2021 BUPRE NORPH INE PT SCREE TREMAINE urine creatinine 214.9 mg/dL >20 Not Available [place] [address] [place], [address], 05/26/2021 09:27:04 05/24/20 21 05/24/2021 BUPRE NORPH INE PT SCREE TREMAINE urine pH 7.60 4.5-9. 0 Not Available [place] [address] [place], [address], 05/26/2021 09:27:04 05/24/20 21 05/24/2021 BUPRE NORPH INE PT DELROY PENALOZA specific gravity 1.020 1.003- 1.035 Not Available [place] [address] [place], [address], 05/26/2021 09:27:04 05/24/20 21 05/24/2021 PRESC RIBED DRUG CONFI RMATI ON [place] , BUPRE NORPH INE, QN, U buprenorphin e OLR(>2 000) NG/mL 20 high Elect berry dietz d by JORDI CAMACHO Not Available [place] [address] [place], [address], 05/30/2021 10:01:35 05/24/20 21 05/24/2021 PRESC RIBED DRUG CONFI RMATI ON [place] , BUPRE NORPH INE, QN, U norbuprenorp julia 780.7 NG/mL 50 Not Available [place] [address] [place], [address], 05/30/2021 10:01:35 05/24/20 21 05/24/2021 PRESC RIBED DRUG CONFI RMATI ON [place] , BUPRE NORPH INE, QN, U alpha-hydrox yalprazolam NEGATI VE NG/mL 25 Not Available [place] [address] [place], [address], 05/30/2021 10:01:35 05/24/20 21 05/24/2021 PRESC RIBED DRUG CONFI RMATI ON [place] , BUPRE NORPH INE, QN, U 7-aminoclona zepam 1366.9 NG/mL 40 high Not Available [place] [address] [place], [address], 05/30/2021 10:01:35 05/24/20 21 05/24/2021 PRESC RIBED DRUG CONFI RMATI ON [place] , BUPRE NORPH INE, QN, U diazepam NEGATI VE NG/mL 50 Not Available [place] [address] [place], [address], 05/30/2021 10:01:35 05/24/20 21 05/24/2021 PRESC RIBED DRUG CONFI RMATI ON [place] , BUPRE NORPH INE, QN, U lorazepam NEGATI VE NG/mL 50 Not Available [place] [address] [place], [address], 05/30/2021 10:01:35 05/24/20 21 05/24/2021 PRESC RIBED DRUG CONFI RMATI ON [place] , BUPRE NORPH INE, QN, U nordiazepam NEGATI VE NG/mL 50 Not Available [place] [address] [place], [address], 05/30/2021 10:01:35 05/24/20 21 05/24/2021 PRESC RIBED DRUG CONFI RMATI ON [place] , BUPRE NORPH INE, QN, U temazepam NEGATI VE NG/mL 50 Not Available [place] [address] [place], [address], 05/30/2021 10:01:35 05/24/20 21 05/24/2021 PRESC RIBED DRUG CONFI RMATI ON [place] , BUPRE NORPH INE, QN, U legend ABBREV IATION S LOW - Detec mary but unqua ntifi able OLR - Outsi de of linea r range ATR - Addit ional Testi ng Requi red Not Available [place] [address] [place], [address], 05/30/2021 10:01:35 05/24/20 21 05/24/2021 PRESC RIBED DRUG CONFI RMATI ON [place] , BUPRE NORPH INE, QN, U billing only ([id number]) [place] ONLY Not Available [facility], [address], 05/30/2021 10:01:35 06/21/20 21 06/21/2021 BUPRE NORPH INE PT SCREE TREMAINE amphetamines Negati ve NG/mL 1,000 Elect berry dietz d by JORDI CAMACHO Not Available [place] [address] [place], [address], 06/23/2021 12:33:43 06/21/20 21 06/21/2021 BUPRE NORPH INE PT SCREE TREMAINE benzodiazapi jero Negati ve NG/mL 200 Not Available [facility], [id number], 06/23/2021 12:33:43 06/21/20 21 06/21/2021 BUPRE NORPH INE PT SCREE TREMAINE buprenorphin e Positi ve NG/mL 5 Not Available [place] [address] [place], [id number], 06/23/2021 12:33:43 06/21/20 21 06/21/2021 BUPRE NORPH INE PT SCREE TREMAINE cocaine metabolite Negati ve NG/mL 150 Not Available [place] [address] [place], [id number], 06/23/2021 12:33:43 06/21/20 21 06/21/2021 BUPRE NORPH INE PT SCREE TREMAINE opiates Negati ve NG/mL 300 Not Available [place] [address] [place], [id number], 06/23/2021 12:33:43 06/21/20 21 06/21/2021 BUPRE NORPH INE PT SCREE TREMAINE oxycodone Negati ve NG/mL 300 Not Available [place] [address] [place], [id number], 06/23/2021 12:33:43 06/21/20 21 06/21/2021 BUPRE NORPH INE PT SCREE TREMAINE fentanyl Negati ve NG/mL 2 Not Available [place], [id number], 06/23/2021 12:33:43 06/21/20 21 06/21/2021 BUPRE NORPH INE PT SCREE TREMAINE ethyl alcohol Negati ve mg/dL 10 Not Available [facility] [address] [place], [id number], 06/23/2021 12:33:43 06/21/20 21 06/21/2021 BUPRE NORPH INE PT SCREE TREMAINE methadone metabolite Negati ve NG/mL 300 Not Available [place], [id number], 06/23/2021 12:33:43 06/21/20 21 06/21/2021 BUPRE NORPH INE PT SCREE TREMAINE urine creatinine 264.6 mg/dL >20 Not Available [place] [address] [place], [id number], 06/23/2021 12:33:43 06/21/20 21 06/21/2021 BUPRE NORPH INE PT SCREE TREMAINE urine pH 6.30 4.5-9. 0 Not Available [place] [address] [place], [id number], 06/23/2021 12:33:43 06/21/20 21 06/21/2021 BUPRE NORPH INE PT SCREE TREMAINE specific gravity 1.035 1.003- 1.035 Not Available [place] [address] [place], [id number], 06/23/2021 12:33:43 07/19/20 21 07/19/2021 BUPRE NORPH INE PT SCREE TREMAINE amphetamines Negati ve NG/mL 1,000 Kwadwo ortega by KEEGAN REID Not Available [place] [address] [place], [id number], 07/21/2021 10:12:15 07/19/20 21 07/19/2021 BUPRE NORPH INE PT SCREE TREMAINE benzodiazapi jero Negati ve NG/mL 200 Not Available [facility] [place], [id number], 07/21/2021 10:12:15 07/19/20 21 07/19/2021 BUPRE NORPH INE PT SCREE TREMIANE buprenorphin e Positi ve NG/mL 5 Not Available [place], [id number], 07/21/2021 10:12:15 07/19/20 21 07/19/2021 BUPRE NORPH INE PT SCREE TREMAINE cocaine metabolite Negati ve NG/mL 150 Not Available [facility] [place], [address], 07/21/2021 10:12:15 07/19/20 21 07/19/2021 BUPRE NORPH INE PT SCREE TREMAINE opiates Negati ve NG/mL 300 Not Available [facility] [place], [address], 07/21/2021 10:12:15 07/19/20 21 07/19/2021 BUPRE NORPH INE PT SCREE TREMAINE oxycodone Negati ve NG/mL 300 Not Available [facility] [place], [address], 07/21/2021 10:12:15 07/19/20 21 07/19/2021 BUPRE NORPH INE PT SCR[facility] TREMA[facility] fentanyl Negati ve NG/mL 2 Not Available [place], [address], 07/21/2021 10:12:15 07/19/20 21 07/19/2021 BUPRE NORPH INE PT [facility] ethyl alcohol Negati ve mg/dL 10 Not Available [place], [address], 07/21/2021 10:12:15 07/19/20 21 07/19/2021 BUPRE NORPH [facility]E PT [facility] methadone metabolite Negati ve NG/mL 300 Not Available [place] [address] [place], [address], 07/21/2021 10:12:15 07/19/20 21 07/19/2021 BUPRE NORPH INE PT [facility] urine creatinine 240.2 mg/dL >20 Not Available [place] [address] [place], [address], 07/21/2021 10:12:15 07/19/20 21 07/19/2021 BUPRE NORPH INE PT SCREE TREMAINE urine pH 5.40 4.5-9. 0 Not Available [place] [address] Kathryn [place], [address], 07/21/2021 10:12:15 07/19/20 21 07/19/2021 BUPRE NORPH INE PT S[facility] TRE[facility]INE specific gravity 1.027 1.003- 1.035 Not Available [place] [address] Mary Mireles [place], [address], 07/21/2021 10:12:15 Result Notes None recorded. Problems Name Problem SNOMED Code Status Onset Date Resolution Date Notes Provider Name and Address Organization Details Recorded Time Opioid dependence 45503207 Active 2019 France Rubio MD [address] [place], [place] [address]h[place], [address], [facility] [employer], 0 14:38:44 Viral hepatitis C 73423315 Active 2019 VIRAL LOAD NOT DETECTABLE France Rubio MD [address] [place], [place] [address]h[place], [address], [facility] [employer] 0 14:39:09 Anxiety 77484061 Active 2019 France Rubio MD [address] [place], [place] [address]h[place], [address], [place] [employer] 0 14:39:22 Malignant tumor of breast 043867572 Active 2019 LEFT JORDI CAMACHO, BRIDGE MAINTAINER [address] [place], [address], [facility] 0 09:47:38 Excision of left breast Active 2020 JORDI CAMACHO, BRIDGE MAINTAINER [address] [place], [address], [employer] 1 09:57:06 History of left mastectomy 634770176 Active 2020 JORDI CAMACHO, BRIDGE MAINTAINER [address] [place], [address], [facility] 1 09:57:22 Operation on breast Active 2020 JORDI CAMACHO, ADALBERTO [address] [place], [address], [employer] 1 10:00:18 Drug withdrawal 425951989 Active 2020 JORDI CAMACHO, ADALBERTO [address] [place], [address], [employer] 1 10:00:47 Problem Notes None recorded. Procedures Surgical History Date Name Laterality Status Provider Name and Address Organization Details Recorded Time 07/19/2021 41875, G0480, G0481 completed [employer] 07/19/2021 16:17:41 06/21/2021 76595, G0480, G0481 completed Graciela [facility], [facility] 06/21/2021 16:36:29 05/24/2021 01343, G0480, G0481 completed [facility]aciela [place] 05/24/2021 16:28:08 04/26/2021 28430, G0480, G0481 completed Ivon Colon [employer] 04/26/2021 16:42:30 03/25/2021 95977, G0480, G0481 completed [facility]aciela [facility] 03/25/2021 16:55:58 02/24/2021 97578, G0480, G0481 completed Delfina Terrazas [facility] 02/24/2021 09:00:56 01/28/2021 32722, G0480, G0481 completed Mariia Camacho [facility] 01/28/2021 13:14:10 12/31/2020 09463, G0480, G0481 completed [facility] 12/31/2020 10:01:16 12/02/2020 60253, G0480, G0481 completed [facility] 12/02/2020 09:33:21 11/02/2020 81164, G0480, G0481 completed [facility] 11/02/2020 08:31:00 10/05/2020 68838, G0480, G0481 completed [facility] 10/05/2020 08:53:15 09/07/2020 28812, G0480, G0481 completed [facility] 09/07/2020 14:06:25 08/10/2020 14247, G0480, G0481 completed Nelsy Shaffer [facility] 08/10/2020 09:14:07 07/13/2020 26974, G0480, G0481 completed Minerva [facility] 07/13/2020 09:04:08 05/26/2020 53460, G0480, G0481 completed Minerva Tab [facility] 05/26/2020 13:49:02 04/27/2020 26405, G0480, G0481 [facility] 04/27/2020 13:36:49 03/26/2020 30040, G0480, G0481 completed Minerva Tab [facility] 03/26/2020 13:41:32 02/25/2020 64184, G0480, G0481 completed Minerva Tab [facility] 02/25/2020 13:40:54 01/28/2020 46555, G0480, G0481 completed Minerva Tab [facility] 01/28/2020 13:35:55 12/31/2019 36935, G0480, G0481 completed Marilee Colon [place] [facility] 12/31/2019 09:00:22 12/19/2019 14991, G0480, G0481 completed Martinez Barakat [place] [facility] 12/19/2019 09:11:53 12/01/2019 61018, G0480, G0481 completed Minerva Tab [facility] 12/01/2019 16:00:57 11/14/2019 30275, G0480, G0481 completed Marilee Colon [facility] 11/14/2019 08:49:27 10/30/2019 33482, G0480, G0481 completed ARGELIA LEDBETTER NP [address] [place], [address], [place] [facility] 10/30/2019 12:42:41 10/16/2019 27618, G0480, G0481 completed Marilee Colon [place] [facility] 10/16/2019 08:00:49 10/02/2019 13785, G0480, G0481 completed Ivon Colon [facility] 10/02/2019 14:33:18 09/17/2019 53394, G0480, G0481 completed Ivon Colon [facility] 09/17/2019 13:43:16 09/11/2019 76706, G0480, G0481 completed Minerva Tab [place] [facility] 09/11/2019 14:40:41 09/03/2019 47290, G0480, G0481 completed Ivon Colon [facility] 09/03/2019 14:48:22 08/27/2019 35698, G0480, G0481 completed Minerva Tab [facility] 08/27/2019 13:46:45 08/20/2019 43509, G0480, G0481 completed Ivon Colon [facility] 08/20/2019 13:45:37 Imaging Results None [...] 97 % 97 % 98.1 [degF] Graciela Surefield, 16:56:38 Date Recorded Body temperature Oxygen saturation Oxygen saturation in Arterial blood by Pulse oximetry Heart rate Provider Name and Address Organization Details Last Updated DateTime 04/26/2021 97.7 [degF] 98 % 98 % 96 /min Ivon Nirmal [employer], 16:47:37 Date Recorded Heart rate Oxygen saturation Oxygen saturation in Arterial blood by Pulse oximetry Body temperature Provider Name and Address Organization Details Last Updated DateTime 05/24/2021 94 /min 98 % 98 % 98.2 [degF] Graciela Surefield, 16:29:13 Date Recorded Heart rate Oxygen saturation Oxygen saturation in Arterial blood by Pulse oximetry Body temperature Provider Name and Address Organization Details Last Updated DateTime 06/21/2021 98 /min 98 % 98 % 97.9 [degF] Graciel[employer]ab [employer], 16:38:23 Date Recorded Body temperature Oxygen saturation Oxygen saturation in Arterial blood by Pulse oximetry Heart rate Provider Name and Address Organization Details Last Updated DateTime 07/19/2021 97.8 [degF] 98 % 98 % 86 /min [employer], 16:21:31 Social History Question Answer Notes LastModified by Organizat ion Details LastModified Time Tobacco Smoking Status Current Every Day Smoker France Rubio MD [address] [place], [address], [facility] [employer] [facility], 08/20/2019 14:40:24 *Food Adequate Information no t available 01/28/2021 *Employment Employed [email or web address] Information n ot available 01/28/2021 *Job Training/Educa tion/Literacy Not Needed [email or web address] Information not available 01/28/2021 *Legal Status No Legal Issues [email or web address] Information not available 01/28/2021 *Custody Of Dependent Children Full Custody [email or web address] Information not available 01/28/2021 *Childcare Needed No [email or web address] Information not available 01/28/2021 *Concern For Domestic Violence No [email or web address] Information not available 01/28/2021 *Primary Care Provider Yes [facility] [email or web address] Information not available 01/28/2021 *Social Support Network Has Stable Support System [email or web address] Information not available 01/28/2021 *Transportatio n Issues No [email or web address] Information not available 01/28/2021 *Housing Stable - Safe [email or web address] Information not available 01/28/2021 *[place] Not A [place] [email or web address] Information not available 01/28/2021 *Legal Assistance Not Required [email or web address] Information not available 01/28/2021 How Much Tobacco Do You Smoke? 0.25 PPD [email or web address] Information not available 08/20/2019 Sex: Unknown Functional Status None recorded. Mental Status None recorded. Family History Nothing Reported. Medical History Condition Response Anxiety Disorder Y Opioid Dependence Y Hepatitis Y Gynecological HistoryNo gynecological history recorded. Obstetrics History GPAL:G 0 P 0 0 0 0 Past Encounters Encounter ID Performer Location Encounter Start Date Encounter Closed Date Diagnosis/Indication Diagnosis SNOMED-CT Code Diagnosis ICD10 Code Diagnosis Note [id number] MD Flaquita [facility] [address] [place] [address] 08/20/2019 13:28:38 08/20/2019 14:58:19 Opioid dependence 99395548 F11.20 [id number] MD Flaquita [facility] [address] [place] [address] 08/27/2019 13:28:12 08/27/2019 16:08:53 Opioid dependence 59033984 F11.20 [id number] Julia Souza, CRC [place]_Behavi oral_[place] [address] [place] [address] 09/03/2019 13:30:21 09/03/2019 15:56:31 [id number] France Rubio MD [place] [place] [address] [place] [address] 09/03/2019 14:42:39 09/03/2019 15:47:18 Opioid dependence 71657280 F11.20 [id number] Julia Souza, CRC [place]_Behavi oral[facility] [address] [place] [address] 09/11/2019 13:36:57 09/11/2019 14:38:33 [id number] ARGELIA LEDBETTER NP [place]ica [facility] [address] [place] [address] 09/11/2019 14:35:13 09/11/2019 15:30:43 Opioid dependence 02026143 F11.20 [id number] France Rubio MD [place] [address] [place] [address] 09/17/2019 13:31:49 09/17/2019 14:06:43 Opioid dependence 72120789 F11.20 [id number] Julia Souza, CRC [place]_Behavi oral_[place] [place] [address] [place] [address] 10/02/2019 13:27:32 10/02/2019 14:27:53 [id number] ARGELIA LEDBETTER NP [place] [address] [place] [address], [place] [address] 10/02/2019 14:26:44 10/02/2019 15:48:50 Opioid dependence 49895188 F11.20 [id number] ARGELIA LEDBETTER NP [place] [address] [place] [address], [place] [address] 10/16/2019 07:52:26 10/16/2019 09:16:01 Opioid dependence 58397125 F11.20 [id number] Julia Souza, CRC MA_Behavi oral_[place] [address] [place] [address] 10/23/2019 13:52:26 10/23/2019 15:28:32 [id number] Julia Souza, CRC MA_Behavi oral_[place] [address] [place] [address] 10/29/2019 14:19:16 10/29/2019 14:59:04 [id number] ARGELIA LEDBETTER NP [place] [address] [place] [address] 10/30/2019 09:10:56 10/30/2019 13:57:09 Opioid dependence 97464666 F11.20 Alcohol dependence 21766 003 F10.20 [id number] Julia Souza, CRC MA_Behavi oral_[place] [address] [place] [address] 11/06/2019 15:03:31 11/06/2019 15:56:45 [id number] ADALBERTO CRAWFORDMedica l_[place] [address] [place] [address] 11/14/2019 08:48:11 11/14/2019 09:43:38 Opioid dependence 31815961 F11.20 Alcohol dependence 40422 003 F10.20 [id number] Sofia Cid NP [facility]Behavi [facility] [address] [place] [address] 11/20/2019 09:45:37 11/20/2019 11:01:33 [id number] France Rubio MD [place]Med[facility] [address] [place] [address] 12/01/2019 15:37:03 12/01/2019 16:32:31 Opioid dependence 62691256 F11.20 [id number] Julia Souza, CRC MA_Behavi oral_[place] [address] [place] [address] 12/10/2019 09:35:46 12/10/2019 13:29:11 [id number] Sofia Cid NP MA_Behavi oral_[place] [address] [facility], [place] [address] 12/18/2019 10:10:19 12/18/2019 11:02:59 [id number] Julia Souza, BRO MA_Behavi oral_Spri [facility] [address] [place] [address] 12/18/2019 10:33:03 12/18/2019 11:05:49 [id number] JORDI CAMACHO NP MA_Medica l_[facility] [address] [place] [address] 12/19/2019 09:09:23 12/19/2019 09:37:06 Opioid dependence 90968686 F11.20 [id number] France Rubio MD MA_Medica l[address] [place] [address] 12/31/2019 08:48:51 12/31/2019 09:33:05 Opioid dependence 12200216 F11.20 [id number] Julia Souza, CRC MA_Behavi oral_Spri [address] [place] [address] 01/01/2020 10:38:37 01/01/2020 11:31:49 [id number] Sofia Cid NP MA_Behavi oral_Spri [address] [place] [address] 01/15/2020 10:24:57 01/15/2020 11:31:43 [id number] ARGELIA LEDBETTER NP MA_Medica l_[address] [place] [address] 01/28/2020 13:34:32 01/28/2020 14:23:15 Opioid dependence 91860170 F11.20 [id number] Julia Souza, BRO MA_Behavi oral_Spri [address] [place] [address] 02/04/2020 15:06:59 02/04/2020 15:52:56 [id number] Soifa Cid NP MA_Behavi oral_Spri [address] [place] [address] 02/10/2020 14:46:17 02/10/2020 15:14:18 [id number] Julia Mangieri, CRC MA_Behavi oral[facility] 50 [place] [address] 02/20/2020 15:06:27 02/20/2020 16:38:51 [id number] France Rubio MD MA_Medica [facility] 50 [place] [address] 02/25/2020 13:35:17 02/25/2020 14:44:33 Opioid dependence 44362465 F11.20 [id number] Sofia Cid NP MA_Behavi oral_Spri [address] [place] [address] 03/09/2020 14:28:24 03/09/2020 15:07:04 [id number] Julia Souza, CRC MA_Behavi oral_Spri [address] [place] [address] 03/19/2020 14:01:47 03/19/2020 16:08:55 [id number] JORDI CAMACHO NP MA_Medica [address] [place] [address] 03/26/2020 13:29:38 03/26/2020 14:58:22 Opioid dependence 17171571 F11.20 Fatigue 69369046 R53.83 Inflammato ry disease of liver 194284175 K75.9 Viral screening NOS 1711 43981 Z11.59 Attacks of weakness 2482 52661 R53.1 Anxiety 79916916 F41.9 [id number] BRO Garnett MA_Behavi oral_Spri [address] [place] [address] 04/02/2020 13:03:02 04/02/2020 13:49:05 [id number] Sofia Cid NP MA_Behavi oral_Spri [address] [place] [address] 04/06/2020 13:58:22 04/06/2020 15:17:38 [id number] Julia Souza CRC MA_Behavi oral_Spri [address] [place] [address] 04/16/2020 15:45:23 04/16/2020 16:33:04 [id number] JORDI CAMACHO NP [place] [address] [place] [address] 04/27/2020 13:28:37 04/27/2020 15:41:49 Opioid dependence 52763873 F11.20 [id number] Sofia Cid, BRIDGE MAINTAINER MA_Behavi oral_[place] [address] [place] [address] 05/11/2020 13:42:39 05/11/2020 16:47:57 [id number] Julia Souza, CRC MA_Behavi oral_[place] [address] [place] [address] 05/14/2020 16:21:48 05/16/2020 19:27:18 [id number] Julia Souza, CRC MA_Behavi oral_[place] [address] [place] [address] 05/14/2020 16:46:37 05/16/2020 19:27:46 [id number] ARGELIA LEDBETTER NP [place]Med[facility] [address] [place] [address] 05/26/2020 13:36:08 05/26/2020 14:43:16 Opioid dependence 02124394 F11.20 [id number] Julia Souza, CRC MA_Behavi oral_[facility]pri [facility] 50 [place] [address] 05/28/2020 15:47:08 05/28/2020 16:33:49 [id number] Sofia Cid BRIDGE MAINTAINER MA_Behavi oral_[place] [address] [place] [address] 06/01/2020 16:42:05 06/01/2020 17:02:09 [id number] Julia Souza, CRC MA_Behavi oral_[place] [address] [place] [address] 06/04/2020 15:31:23 06/04/2020 17:06:10 [id number] Julia Souza, CRC MA_Behavi oral_[place] [address] [place] [address] 06/24/2020 13:46:18 06/25/2020 10:52:53 [id number] Sofia Cid NP MA_Behavi oral[facility] 50 [place] [address] 06/29/2020 16:03:27 06/29/2020 16:59:45 [id number] ADALBERTO CRAWFORDMedica l_[place] [address] [place] [address] 07/13/2020 08:54:43 07/13/2020 11:30:37 Opioid dependence 47533777 F11.20 Malignant tumor of breast 892957002 C50.112 [id number] Sofia Cid NP MA_Behavi oral_Spri [address] [place] [address] 07/26/2020 08:58:00 07/26/2020 11:54:01 [id number] ADALBERTO [facility]Medica [facility] [address] [place] [address] 08/10/2020 09:13:41 08/10/2020 11:55:16 Opioid dependence 18309825 F11.20 Alcohol dependence 47272 003 F10.20 Malignant tumor of breast 579801518 C50.112 [id number] Sofia Cid NP MA_Behavi oral_Spri [address] [place] [address] 08/24/2020 08:35:48 08/24/2020 09:53:53 [id number] ADALBERTO NORRISMedica [place] [address] [place] [address] 09/07/2020 13:55:30 09/07/2020 16:56:42 Opioid dependence 69516552 F11.20 Stable- UDS neg greater than one yr [id number] BRO Garnett MA_Behavi oral_Spri [address] [address] 09/10/2020 15:28:34 09/10/2020 16:27:12 [id number] Sofia Cid NP MA_Behavi oral_Psyc hMed [address] [place] [address] 09/16/2020 08:55:23 09/16/2020 16:04:08 [id number] BRO Garnett MA_Behavi oral_[facility]pri [facility] 50 [place] [address] 10/01/2020 10:01:15 10/04/2020 20:26:50 [id number] JORDI CAMACHO NP [place]Medica [facility] [address] [place] [address] 10/05/2020 09:18:59 10/05/2020 10:35:45 Opioid dependence 85651167 F11.20 STAPLE Drug withdrawal 75911356 5 F19.939 UNSTABLE [id number] Reanna Cazares NP MA_Behavi oral_Spri [address] [place] [address] 10/13/2020 09:51:12 10/13/2020 11:05:44 [id number] ARGELIA LEDBETTER NP [place]_Medica l_[place] [address] [place] [address] 11/02/2020 09:29:03 11/02/2020 10:24:40 Opioid dependence 87287393 F11.20 Stable- UDS neg greater than one yr [id number] Reanna Cazares NP MA_Behavi oral_Spri [address] [place] [address] 11/09/2020 09:52:07 11/09/2020 13:51:07 [id number] ARGELIA LEDBETTER NP [place]_Medica l_[place] [address] [place] [address] 12/02/2020 09:30:37 12/02/2020 10:14:02 Opioid dependence 57149136 F11.20 Stable- UDS neg greater than one yr [id number] Reanna Cazares NP MA_Behavi oral_Psyc hMed [address] [place] [address], [place] [address] 12/08/2020 14:32:35 12/13/2020 12:42:47 [id number] ARGELIA LEDBETTER NP [place]_Medica [place] [address] [place] [address] 12/31/2020 09:53:42 12/31/2020 11:23:54 Opioid dependence 00860710 F11.20 Stable- UDS neg greater than one yr [id number] Reanna Cazares, BRIDGE MAINTAINER MA_Behavi oral_Psyc hMed 50 [place] [address] 01/05/2021 13:55:39 01/05/2021 15:22:46 [id number] JORDI CAMACHO NP [place]Medica [facility] [address] [place] [address] 01/28/2021 13:33:30 01/28/2021 15:36:25 Opioid dependence 61631885 F11.20 STABLE [id number] Reanna Cazares BRIDGE MAINTAINER MA_Behavi oral_Spri [address] [place] [address] 02/02/2021 13:57:06 02/06/2021 18:07:28 [id number] Reanna Cazares NP MA_Behavi oral_Spri [address] [place] [address] 02/23/2021 09:23:12 02/23/2021 12:34:30 [id number] ZAY Galindo MA_Medica l_[place] [address] [place] [address] 02/24/2021 08:50:42 02/24/2021 09:47:12 Opioid dependence 00256324 F11.20 STABLE [id number] JORDI CAMACHO NP MA[facility]Medica l_[facility] 50 [place] [address] 03/25/2021 16:51:16 03/29/2021 09:55:14 Opioid dependence 38427795 F11.20 STABLE [id number] Reanna Cazares BRIDGE MAINTAINER MA_Behavi oral_Spri [address] [place] [address] 04/06/2021 16:40:43 04/08/2021 16:18:25 [id number] JORDI CAMACHO NP MA_Medica l_[place] [address] [place] [address] 04/26/2021 16:38:16 04/27/2021 16:19:37 Opioid dependence 88401164 F11.20 STABLE [id number] JORDI CAMACHO, ADALBERTO [facility] [place] [address] 05/24/2021 16:24:41 05/24/2021 17:08:34 Opioid dependence 47652310 F11.20 STABLE [id number] JORDI CAMACHO NP [facility] [place] [address] 06/21/2021 16:30:28 06/22/2021 09:41:42 Opioid dependence 41344369 F11.20 STABLE [id number] Keegan Reid NP [facility] [address] [place] [address] 07/19/2021 16:16:34 07/19/2021 16:58:55 Opioid dependence 19645508 F11.20 Health Concerns Section Related Observation LastModified by Organization Detai ls LastModified Time None Recorded Concern Status LastModified by Organization Details LastModified Time None Recorded Advance Directives Directive None Recorded Payers Encounter Date Sequence Insurance Name Policy Number Policy Bland Covered Member ID Bland Member ID Guarantor Name 03/25/2021 1 [facility] ([facility] ADRIANAO Yana Butts [place] [id number] Yana [place] 04/26/2021 1 [facility] ([facility] BOSTSABASO Yana E [place] [id number] Yana [place] 05/24/2021 1 [facility] ([place]) [place] Yana E [place] [id number] Yana [place] 06/21/2021 1 [facility] ([facility] BOSTSABASO Yana E [place] [id number] Yana [place] 07/19/2021 1 [facility] ([facility] BOST[place] Yana E [place] [id number] Yana [place] Notes Date Note Type Note [...] concern for diversion. JORDI CAMACHO NP [address] [place], [address], [facility], 03/27/2021 11:38:11 04/26/2021 text/html The patient reports [...] concern for diversion. JORDI CAMACHO NP [address] [place], [address], [facility], 04/27/2021 08:36:50 05/24/2021 text/html The patient reports [...] concern for diversion. JORDI CAMACHO NP [address] [place], [address], [facility], 05/26/2021 07:57:44 06/21/2021 text/html The patient reports [...] concern for diversion. JORDI CAMACHO, ADALBERTO [address] [place], [address], [facility] [employer] [facility], 06/22/2021 08:16:27 07/19/2021 text/html The patient repo [...] concern for diversion. Keegan Reid NP [address] [place], [address], [facility], 07/20/2021 12:24:30 OBGyn Episode No OBEpisode recorded.
[2024-08-21 13:18] LABS: Appearance Urine Clear; Color Urine Yellow; Glucose Urine UA Negative (Negative); Leukocyte Esterase Urine Negative (Negative); Nitrite Urine Negative (Negative); Specific Gravity - Urine 1.025 (1.005-1.025); Urine Blood Negative (Negative); Urine Ketones Negative (Negative); Urine Protein Negative (Neg-Trace)
[2024-08-21 13:57] LABS: Alanine Aminotransferase 24 U/L (0-31); Albumin Level 4.5 g/dL (3.5-5.0); Alkaline Phosphatase 40 U/L (39-117); Anion Gap 12 (12-20); Aspartate Amino Transferase 30 U/L (5-31); Bilirubin Total 0.2 mg/dL (0.0-1.0); Blood Urea Nitrogen 15 mg/dL (9-16); Calcium 9.3 mg/dL (8.4-10.2); Carbon Dioxide 28 mmol/L (22-29); Chloride 103 mmol/L (96-108); Cholesterol 173 mg/dL (<200); Estimated Glomerular Filt Rate > 60; Glucose Fasting 90 mg/dL (60-99); HDL Cholesterol 52 mg/dL (>40); LDL Cholesterol Calculated 113 mg/dL (<100); Potassium 4.4 mmol/L (3.3-5.1); Sodium 139 mmol/L (135-145); Total Protein 7.5 g/dL (6.5-8.0); Triglycerides 40 mg/dL (<150)
[2024-08-21 14:11] LABS: TSH reflex Free T4 1.48 uIU/mL (0.32-4.0)
[2024-08-21 14:12] LABS: HIV AB/AG Nonreactive (Nonreactive); HIV Num 1 0.05 S/CO (0.00-0.99)
== END 2024-08-21 08:51 | disposition home or self-care (01) ==
LOC: HO.HMGCLDS 08:50
PROVIDERS: PCP Nurse Practitioner Family; Visit Provider Nurse Practitioner Family
DX: Z00.00 Encounter for general adult medical examination without abnormal findings (principal); C50.912 Malignant neoplasm of unspecified site of left female breast; C77.0 Secondary and unspecified malignant neoplasm of lymph nodes of head, face and neck; M06.9 Rheumatoid arthritis, unspecified; H61.23 Impacted cerumen, bilateral; Z11.4 Encounter for screening for human immunodeficiency virus [HIV]
CPT/HCPCS: 36415; 69209; 80053; 80061; 81003; 84443; 85025; 87389; 96127; 99396

== ENCOUNTER 2025-02-23 10:12 | Outpatient (REF) | payer MEDICARE, MEDICAID, SELFPAY ==
[2025-02-23 13:04] LABS: Appearance Urine Turbid; Glucose Urine UA Negative (Negative); PH 8.5 (5.0-9.0); Specific Gravity - Urine 1.020 (1.005-1.025)
[2025-02-23 13:10] LABS: MANUAL DIFF FLAG NO
[2025-02-23 13:22] LABS: Hematocrit 38.8 % (37.0-47.0); Hemoglobin 12.9 g/dl (12.0-16.0); Imm Gran Abs Auto 0.02 X10*3/uL (0.00-0.03); Imm Gran Pct Auto 0.3 % (0.0-0.4); Lymphocytes Absolute Auto 0.7 X10*3/uL (1.2-4.9); Mean Corpuscular HGB Conc 33.2 g/dl (31.0-35.0); Mean Corpuscular Hemoglobin 31.1 pg (27.0-33.0); Mean Corpuscular Volume 93.5 fL (80.0-98.0); NRBC Abs Auto 0.000 X10*3/uL (0.0-0.012); NRBC Pct Auto 0.0 /100WBC (0.0-0.2); Platelet Count 285 X10*3/uL (160-400); Red Blood Count 4.15 X10*6/uL (4.20-5.50); White Blood Count 7.6 X10*3/uL (4.8-10.8)
[2025-02-23 13:51] LABS: Alanine Aminotransferase 14 U/L (0-31); Albumin Level 4.7 g/dL (3.5-5.0); Alkaline Phosphatase 53 U/L (39-117); Anion Gap 13 (12-20); Aspartate Amino Transferase 27 U/L (5-31); Blood Urea Nitrogen 18 mg/dL (9-16); Calcium 9.8 mg/dL (8.4-10.2); Carbon Dioxide 31 mmol/L (22-29); Chloride 102 mmol/L (96-108); Cholesterol 148 mg/dL (<200); Estimated Glomerular Filt Rate > 60; HDL Cholesterol 42 mg/dL (>40); Potassium 4.0 mmol/L (3.3-5.1); Sodium 142 mmol/L (135-145); Total Protein 7.7 g/dL (6.5-8.0); Triglycerides 40 mg/dL (<150)
== END 2025-02-23 10:13 | disposition home or self-care (01) ==
LOC: HO.HMGCLDS 10:12
PROVIDERS: PCP Nurse Practitioner Family; Visit Provider Nurse Practitioner Family
DX: C50.912 Malignant neoplasm of unspecified site of left female breast (principal); F41.9 Anxiety disorder, unspecified; F32.A Depression, unspecified; Z13.6 Encounter for screening for cardiovascular disorders; Z87.891 Personal history of nicotine dependence
CPT/HCPCS: 36415; 80053; 80061; 81003; 84443; 85025; 96127; 99212

== ENCOUNTER 2025-02-23 10:12 | Outpatient (AMB) | payer MEDICARE, MEDICAID, SELFPAY ==
--- NOTE | 2025-02-23 10:17 | MHC.PC.OV ---
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 Accompanied by: Self / Same As Patient Allergies No Known Allergies (No Known Allergies*) Allergy (Verified 02/23/25 10:40) Medication List - Last Reconciled 02/23/25 by VAUGHN AguilaP- acetaminophen 650 mg PO Q4H PRN amitriptyline 10 mg PO BEDTIME 30 days buprenorphine-naloxone 8-2 mg 10 mg sublingual BID cholecalciferol (vitamin D3) 50 mcg PO DAILY clonazepam 1 mg PO QID exemestane mg PO DAILY exemestane 25 mg PO DAILY fluocinonide 0.05% 1 appl topical DAILY 30 days leuprolide (Lupron Depot) 3.75 mg intramuscularly q 3 months; loratadine 10 mg PO DAILY PRN magnesium oxide 500 mg PO DAILY 90 days methylphenidate HCl 20 mg PO DAILY omeprazole 20 mg PO DAILY prazosin 2 mg PO BEDTIME sertraline 50 mg PO DAILY vitamin B complex 1 tab PO DAILY Tobacco use date assessed: 02/23/25 Dental Screening Dental Screen Date: 02/23/25 Did you have a dental visit in the last 12 months?: Yes Did you have a dental problem in the last 6 months where you did not have access to dental care?: No Was dental information given to patient?: Patient has dentist HPI 6m F/U-no insurance HPI Details Chief Complaint The patient presents for a generalized follow-up visit. History of Present Illness The patient is a 44-year-old female presenting with a generalized follow-up visit. She has a history of breast carcinoma and is under the care of an oncologist. She reports feeling well overall, although her appetite has decreased slightly, leading to some weight loss. The patient is due for a repeat PET scan soon, with the last scan showing no concerning findings. She has previously been evaluated by rheumatology for suspected rheumatoid arthritis, which was not confirmed. The patient has a history of depression and anxiety, which she is managing with the help of a therapist and psychiatrist. She denies any suicidal ideation or self-harm and is in the process of finding a new psychiatrist. Social History Health Maintenance - Follow-up PET scan scheduled Review of Systems - General: Reports decreased appetite and weight loss - Psychiatric: Reports depression and anxiety, denies suicidal ideation or self-harm Physical Exam General: Cooperative, healthy appearing, comfortable, no acute distress and well developed Orientation: Patient oriented x3 Limitations: No limitations Head: Normal to inspection Ears: Hearing grossly normal bilaterally Nose: Normal external nose present Face and sinus: Normal facial exam Eyes: Appearance normal, both eyes and all related structures Neck: Normal visual inspection and Yes full ROM Respiratory: Normal respiratory effort and able to speak in complete sentences. Clear to auscultation bilaterally Cardiovascular: Regular rate and rhythm. Normal S1 and S2, no carotid bruits GI: Normal to inspection. Soft to palpation and nontender Skin: No rashes or lesions noted Neuro: Patient oriented x3, patellar reflexes present Extremities: Normal to inspection Results Plan The patient will continue to follow up with her oncologist for breast carcinoma management and is scheduled for a repeat PET scan to monitor her condition. She is advised to maintain regular appointments with her therapist and psychiatrist to manage her depression and anxiety effectively. Additionally, she is in the process of transitioning to a new psychiatrist to ensure continuity of care. encourage small frequent meals (high protein) [facility] Medical History Rheumatoid arthritis Invasive ductal carcinoma of left breast Migraines Hepatitis C antibody test positive Bronchitis GERD (gastroesophageal reflux disease) ADHD (attention deficit hyperactivity disorder) Surgical History Hx of biopsy H/O total mastectomy of left breast History of section History of tonsillectomy Family History Father No problems noted. Mother History of lung cancer History of Crohn's disease Maternal Grandmother History of hypertension Maternal Grandfather History of stroke History of hypertension Social History Housing: House Patient Tobacco Use Status: Former Tobacco user Years Smoked: quit 3-4 years ago e-Cigarette/Vaping Use: Former Use Second Hand Smoke Exposure: Yes service: No Current occupational status: employed Current occupation: [employer] Current occupational exposures/hazards: No Cognitive needs: No Hearing needs: No Vision needs: No Female Reproductive History Menstrual Age of Menarche: 12 Questionnaire PHQ-9 Over the last 2 weeks, how often have you been bothered by any of the following problems? 1. Little interest or pleasure in doing things: several days 2. Feeling down, depressed, or hopeless: nearly every day 3. Trouble falling or staying asleep, or sleeping too much: nearly every day 4. Feeling tired or having little energy: nearly every day 5. Poor appetite or overeating: nearly every day 6. Feeling bad about yourself - or that you are a failure or have let yourself or your family down: nearly every day 7. Trouble concentrating on things, such as reading the newspaper or watching television: nearly every day 8. Moving or speaking so slowly that other people could have noticed. Or the opposite - being so fidgety or restless that you have been moving around a lot more than usual: not at all 9. Thoughts that you would be better off or of hurting yourself in some way: not at all Total score: 19 Depression Screening Interpretation: Positive (psychiatry and therpist. Denies any si or hi) Depression Screening Follow-up: Existing condition and In treatment Depression Screening Done: Yes 38967 - PHQ-9 Billing: Yes Source: Developed by Drs. Preston Valle, Ruth Ann Romero, Rod Arriaga and colleagues, with an educational ky from [employer]. Thrive Questionnaire Date Thrive assessed: 08/14/24 I am a: Patient What is your living situation today?: I have a steady place to live Within the past 12 months, did the food you bought not last and you didn't have the money to get more?: I choose not to answer this question Within the past 12 months, did you worry whether your food would run out before you got money to buy more?: I choose not to answer this question Do you have trouble paying for medicines?: I choose not to answer this question Do you have trouble getting transportation to medical appointments?: I choose not to answer this question Do you have trouble paying your heating and electricity bill?: I choose not to answer this question Do you have trouble taking care of your child, family member or friend?: No Do you have trouble with day-to-day activities such as bathing, preparing meals, shopping, managing finances, etc.?: Yes Are you currently unemployed and looking for a job?: No Are you interested in more education?: No Please select the resources that you would like help with: None Currently or been in a relationship where the following occur: I choose not to answer THRIVE Score: 0 MIGUEL-7 AMB Questionnaire MIGUEL-7 Date MIGUEL - 7 assessed: 02/23/25 Feeling nervous, anxious, or on edge: 3 = Nearly every day Not being able to stop or control worryin = Nearly every day Worrying too much about different things: 3 = Nearly every day Trouble relaxin = Nearly every day Being so restless that it is hard to sit still: 1 = Several days Becoming easily annoyed or irritable: 3 = Nearly every day Feeling afraid as if something awful might happen: 3 = Nearly every day Total MIGUEL-7 score (0-4 normal; 5-9 mild; 10-14 moderate; 15-21 severe): 19 Source: Developed by Drs. Preston Valle, Ruth Ann Romero, Rod Arriaga and colleagues, with an educational ky from [employer]. MIGUEL-7 Assessment Billing MIGUEL-7 Assessment Tool: MIGUEL-7 Assessment 96692 (denies any si or hi, has a therapist and psychiatrist) Physical exam (Primary Care) Vital Signs: Last Vital Signs Temp 98.3 F 02/23/25 10:18 Pulse 63 02/23/25 10:18 Resp 16 02/23/25 10:18 BP 108/64 02/23/25 10:18 Pulse Ox 98 02/23/25 10:18 Oxygen Delivery Method Room Air 02/23/25 10:18 BMI result Body Mass Index 19.6 Tobacco/Smoking Status: Tobacco use Status Tobacco use date assessed 02/23/25 02/23/25 10:26 Patient Tobacco Use Status Former Tobacco user 02/23/25 10:26 e-Cigarette/Vaping Use Former Use 02/23/25 10:26 PHQ-9: PHQ-9 Score PHQ-9: Total score 19 02/23/25 10:26 Depression Screening Interpretation: Positive (psychiatry and therpist. Denies any si or hi) Depression Screening Follow-up: Existing condition and In treatment Thrive Assessment: Date of Thrive Assessment Date Thrive assessed 08/14/24 02/23/25 10:26 Currently or been in a relationship where the following occur: I choose not to answer Coding Level of Care Code Est Pt Level 3 (20447) Diagnoses Invasive ductal carcinoma of left breast C50.912 Anxiety F41.9 Depression F32.A Additional Codes PHQ-9 - 07591 - PHQ-9 Billing: Yes ([id number]) MIGUEL-7 Assessment Billing - MIGUEL-7 Assessment Tool: MIGUEL-7 Assessment 68529 ([id number]) Assessment & Plan Assessment & Plan (1) Invasive ductal carcinoma of left breast: Code(s): C50.912 - Malignant neoplasm of unspecified site of left female breast Category: Medical (2) Anxiety: Code(s): F41.9 - Anxiety disorder, unspecified Category: Medical (3) Depression: Code(s): F32.A - Depression, unspecified Category: Medical Plan . Orders: Orders Comprehensive [place]. Panel Fast Today F32.A - Depression, unspecified, F41.9 - Anxiety disorder, unspecified TSH reflex Free T4 Today F32.A - Depression, unspecified, F41.9 - Anxiety disorder, unspecified Lipid Panel Today F32.A - Depression, unspecified, F41.9 - Anxiety disorder, unspecified Complete Blood Count Auto Diff Today F32.A - Depression, unspecified, F41.9 - Anxiety disorder, unspecified UA CC w/rflx Micro + Cult Today F32.A - Depression, unspecified, F41.9 - Anxiety disorder, unspecified
[2025-02-23 10:18] VITALS: BP 108/64; PULSE 63; RESP 16; TEMP 36.8; O2SAT 98; BMI 19.6
== END 2025-02-23 10:52 | disposition home or self-care (01) ==
PROVIDERS: PCP Nurse Practitioner Family; Visit Provider Nurse Practitioner Family
DX: C50.912 Malignant neoplasm of unspecified site of left female breast (principal); F41.9 Anxiety disorder, unspecified; F32.A Depression, unspecified

== ENCOUNTER 2025-05-19 08:01 | Outpatient (AMB) | payer MEDICARE, MEDICAID, SELFPAY ==
--- NOTE | 2025-05-19 08:08 | MHC.OFFVIS ---
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 No complaints. Last Pap/HPV was negative in 05/15 Last Mammogram was BI-RADS 2 in 08/16 [facility] Medical History Dysplasia of cervix, low grade (ADENIKE 1) Rheumatoid arthritis Invasive ductal carcinoma of left breast Migraines Hepatitis C antibody test positive Bronchitis GERD (gastroesophageal reflux disease) ADHD (attention deficit hyperactivity disorder) Surgical History Hx of biopsy H/O total mastectomy of left breast History of section History of tonsillectomy Family History Father No problems noted. Mother History of lung cancer History of Crohn's disease Maternal Grandmother History of hypertension Maternal Grandfather History of stroke History of hypertension Social History Housing: House Patient Tobacco Use Status: Former Tobacco user Years Smoked: quit 3-4 years ago e-Cigarette/Vaping Use: Former Use Second Hand Smoke Exposure: Yes service: No Current occupational status: employed Current occupation: [employer] Current occupational exposures/hazards: No Cognitive needs: No Hearing needs: No Vision needs: No Female Reproductive History Menstrual Age of Menarche: 12 Date of last pap smear: 12/09/21 Date of Mammogram: 08/08/24 Review of Systems Const All systems reviewed & are unremarkable except as noted in HPI and below Card Reports as per HPI Resp Reports as per HPI GI Reports as per HPI and Reports no additional complaints Reports as per HPI Physical Exam Vital Signs: Last Vital Signs BP 98/64 05/19/25 08:09 BMI result Body Mass Index 20.5 Const General: cooperative, healthy appearing and comfortable Chest Chest palpation & inspection: normal inspection of the chest and normal palpation of entire chest wall Breast/axilla inspection: normal inspection of the breasts and normal inspection of the axillae Breast/axilla palpation: palpation of the breasts abnormal (Right within normal, left status post mastectomy), normal palpation of the axillae and no axillary lymphadenopathy Resp Effort & Inspection: normal respiratory effort Auscultation: clear to auscultation bilaterally Percussion: percussion normal Cardio Palpation: normal PMI Rate: regular rate Rhythm: regular rhythm Heart sounds: no murmurs and no rubs Peripheral pulses: Peripheral pulses 2+ throughout GI Inspection: Yes normal to inspection Palpation (GI): Soft to palpation, nontender, no guarding, not rigid and No hepatosplenomegaly present Percussion: Yes normal to percussion Auscultation: normal bowel sounds Rectal Exam - Female: deferred General: Yes bladder normal to palpation External Female Exam: No lesion Speculum Exam - Vagina: normal appearance of the vagina, normal palpation, normal vaginal discharge and not erythematous Speculum Exam - Cervix: normal appearance of the cervix and normal palpation Bimanual exam- vagina & uterus: normal bimanual exam, normal palpation, uterine size normal, bladder normal to palpation, consistency normal and normal palpation Bimanual Exam- Adnexa, other: normal adnexae, no masses and no tenderness Assessment & Plan Assessment & Plan (1) Well woman exam: Comment: History of ADENIKE 1 in 2020 followed by negative Co testing in 11/11 and 05/15 left breast cancer status post left mastectomy Code(s): Z01.419 - Encounter for gynecological examination (general) (routine) without abnormal findings Category: Medical Plan: Cotesting not indicated this year. Instructions given the patient to schedule next screening Mammogram in 08/17. Counseled the patient about the recommended dietary allowance of 1000 mg of Calcium & 600 IU of vitamin D. The patient was instructed to perform monthly self-breast exams and to schedule an annual exam in a year; All questions answered and the patient verbalized understanding. Instructed the patient to schedule annual exam in a year Coding Level of Care Code Est Pt Prev Care 40-64y(19148) Diagnoses Well woman exam Z01.419
[2025-05-19 08:09] VITALS: BP 98/64; BMI 20.5
== END 2025-05-19 09:55 | disposition home or self-care (01) ==
LOC: HO.HWS 08:02
PROVIDERS: PCP Nurse Practitioner Family; Visit Provider Obstetrics & Gynecology
DX: Z01.419 Encounter for gynecological examination (general) (routine) without abnormal findings (principal)
CPT/HCPCS: 99396; 99459

== ENCOUNTER → 2025-05-19 08:01 | Outpatient (BNVA) | payer MEDICARE, MEDICAID, SELFPAY | PROVIDERS: PCP Nurse Practitioner Family; Visit Provider Obstetrics & Gynecology | DX: Z01.419 Encounter for gynecological examination (general) (routine) without abnormal findings (principal); Z85.3 Personal history of malignant neoplasm of breast; Z87.42 Personal history of other diseases of the female genital tract | CPT/HCPCS: 99396 ==

== ENCOUNTER 2025-05-20 08:34 | Outpatient (REF) | payer MEDICARE, MEDICAID, SELFPAY | END 2025-05-20 08:35 | disposition home or self-care (01) | LOC: HO.HMGCLNP 08:34 | PROVIDERS: PCP Nurse Practitioner Family; Visit Provider Nurse Practitioner Family | DX: Z13.89 Encounter for screening for other disorder (principal) | CPT/HCPCS: 87177; 87209 ==

== ENCOUNTER 2025-05-20 08:50 | Outpatient (REF) | payer MEDICARE, MEDICAID, SELFPAY ==
--- NOTE | ~2025-05-20 | XR_ITS ---
EXAMINATION: XR CHEST CLINICAL INFORMATION: R63.4 - Abnormal weight loss COMPARISON: None available. TECHNIQUE: PA and lateral views FINDINGS: Hyperinflated lungs. No consolidation, pleural effusion or pneumothorax. Cardiomediastinal silhouette size is normal. Right-sided Port-A-Cath with tip ends in the right atrium region. Osseous structures are intact. Mild multilevel spondylosis. XR/XR chest 2V IMPRESSION: Hyperinflated lungs. No acute airspace disease. Right-sided Port-A-Cath in place. Electronically signed by: Claude Peralta MD 05/20/2025 09:21 AM EDT
== END 2025-05-20 08:51 | disposition home or self-care (01) ==
LOC: HO.HMGCX 08:50
PROVIDERS: PCP Nurse Practitioner Family; Visit Provider Nurse Practitioner Family
DX: R63.4 Abnormal weight loss (principal)
CPT/HCPCS: 71046; 87177; 87209

== ENCOUNTER → 2025-05-20 09:00 | Outpatient (BNV) | payer MEDICARE, MEDICAID, SELFPAY | PROVIDERS: PCP Nurse Practitioner Family; Visit Provider Radiology Diagnostic Radiology | DX: R63.4 Abnormal weight loss (principal); J98.4 Other disorders of lung; Z95.818 Presence of other cardiac implants and grafts | CPT/HCPCS: 71046 ==